=== PATIENT | female | born 1965 | race Caucasian/White ===

== ENCOUNTER 2016-12-06 19:01 | Emergency (ER) | payer BC ==
[~2016-12-06] VITALS: Ht 162.6 cm; Wt 109.0 kg
[~2016-12-06 19:01] MED LIST: BENA10TA48 PO; LANT3I SC; LEVO25TA53 PO; LEVO300T5 PO; METF-388 PO; NOVO3I SC; ONDA4TAB8 PO; SIMV10TA76 PO
[2016-12-06 19:47] VITALS: Ht 162.6 cm; Wt 109.0 kg
[2016-12-06] MEDS ORDERED: KETOROLAC 30 MG INJ IM STA (21:21)
--- NOTE | 2016-12-06 22:14 | RADRPT ---
PROCEDURE: Left knee x-ray CLINICAL INDICATION: Lateral knee pain. TECHNIQUE: AP, lateral and oblique views of the right knee were obtained. COMPARISON: None FINDINGS: There is normal mineralization. No acute fracture or dislocation is seen. There are no significant degenerative changes. There is no joint effusion. Inferior patellar enthesophyte. There is no significant soft tissue swelling. IMPRESSION: Normal x-ray of the right knee. RPTAT: [facility] Physician Christina Date Time Electronically viewed and signed by Physician Christina on 12/06/2016 22:14 RS/
[2016-12-06] MEDS ORDERED: IBUP400T22 PO (23:25)
[2016-12-06 23:31] VITALS: BP 143/70; PULSE 67; RESP 16
--- NOTE | 2016-12-06 23:35 | ERD ---
ER Documentation Chief Complaint Date/Time DATE: 12/06/16 TIME: 23:27 Chief Complaint RIGHT KNEE SINCE 12/03/16. SWELLING AND PAIN NOW HPI Patient is a 51-year-old female with a past medical history of diabetes, hypertension, hypothyroidism, dyslipidemia who presents to the emergency department with right knee pain 3 days. Patient denies any trauma or falls. Patient states that she woke up in the morning and she started having severe pain. Patient states that when she walks "she hears a cracking sound" Patient states her current pain level is a 10 out of 10. Pain is worse with movement. Patient is been taking [place] for her pain which does not alleviate it. Patient reports icing affected extremity. Patient denies any numbness or tingling down her leg. Patient is able to ambulate on affected extremity without any difficulty. Patient denies any previous injury to affected extremity. Patient denied any recent surgery, prolonged sitting, travel, estrogen use. Patient denies any fever or chills. Patient denies any chest pain, shortness of breath or loss of consciousness. ROS All systems reviewed and are negative except as per history of present illness. Medications Home Meds Active Scripts Ibuprofen* (Motrin*) 400 Mg Tab, 400 MG PO Q6, #20 TAB Prov:ANA GATES PA-C 12/06/16 Ondansetron Hcl* (Zofran*) 4 Mg Tablet, 4 MG PO Q8 for VOMITTING, #20 TAB Prov:SYLVIA SOSA MD 08/20/16 Metformin Hcl* (Metformin Hcl*) 1,000 Mg Tablet, 1000 MG PO WITH BREAKFAST, #30 TAB 1 Refill Prov:HARLEY MARIA 07/08/16 Reported Medications Levothyroxine Sodium* (Levothyroxine Sodium*) 25 Mcg Tablet, 25 MCG PO BEFORE BREAKFAST, #30 TAB 09/22/16 Levothyroxine Sodium* (Levothyroxine Sodium*) 300 Mcg Tablet, 300 MCG PO BEFORE BREAKFAST, #30 TAB 09/22/16 Insulin Glargine* (Lantus*) 100 Unit/Ml Soln, 20 UNIT SC QHS, #1 VIAL 07/27/16 Insulin Aspart* (Novolog Insulin Pen*) 100 Unit/Ml Soln, 5 UNIT SC AC MEALS , EA 07/27/16 Benazepril Hcl* (Benazepril Hcl*) 10 Mg Tablet, 10 MG PO DAILY, #30 04/24/16 Simvastatin* (Zocor*) 10 Mg Tablet, 10 MG PO QHS, #30 04/24/16 Allergies Allergies: Coded Allergies: morphine (Verified Allergy, Mild, 09/22/16) PMhx/Soc History of Surgery: Yes ( DM, HYPOTHYROIDISM, DLD, HTN, ERCP WITH STENT PLACEMENT, CHOLECYSTECTOMY, ) Anesthesia Reaction: No Hx Neurological Disorder: No Hx Respiratory Disorders: No Hx Cardiac Disorders: Yes (HTN, hyperlipidemia) Hx Psychiatric Problems: No Hx Miscellaneous Medical Probl: Yes ( DM, HYPOTHYROIDISM, DLD, HTN, ERCP WITH STENT PLACEMENT, CHOLECYSTECTOMY, ) Hx Alcohol Use: No Hx Substance Use: No Hx Tobacco Use: Yes Smoking Status: Current every day smoker Physical Exam Vitals Vital Signs Date Time Temp Pulse Resp B/P Pulse Ox O2 Delivery O2 Flow Rate FiO2 12/06/16 23:31 67 16 143/70 98 Room Air 12/06/16 19:47 98.9 72 20 176/79 98 Physical Exam GENERAL: Well-developed, well-nourished female. Appears in no acute distress. HEAD: Normocephalic, atraumatic. EYES: Pupils are equally reactive bilaterally. EOMs grossly intact. No conjunctival erythema. ENT: Moist mucous membranes. No uvula deviation. No kissing tonsils. NECK: Supple. No lymphadenopathy or thyromegaly. No meningismus. LUNG: Clear to auscultation bilaterally. No rhonchi, wheezing, rales or coarse breath sounds. HEART: Regular rate and rhythm. No murmurs, rubs or gallops. BACK: No midline tenderness. EXTREMITIES: Equal pulses bilaterally. No peripheral clubbing, cyanosis or edema. No unilateral leg swelling. NEUROLOGIC: Alert and oriented. Moving all four extremities without any difficulty. Normal speech. Steady gait. SKIN: Normal color. Warm and dry. No rashes or lesions. RIGHT KNEE: No deformity, erythema, ecchymosis. No swelling noted. Skin intact. Decreased range of motion secondary to pain. Tender to palpation over anterior and lateral knee. No popliteal tenderness elicited. No valgus/varus instability. Sensation intact to light touch. Neurovascularly intact. (Able to plantarflex, dorsiflex, ivette foot, invert foot, raise big toe.) 2+ DP and DT pulses. Patient is able to ambulate greater than 4 steps without difficulty. Results 24 hrs Current Medications Medications (Trade) Dose Ordered Sig/Josephine Route PRN Reason Start Time Stop Time Status Last Admin Dose Admin Ketorolac Tromethamine (Toradol) 30 mg ONCE STAT IM 12/06/16 21:21 12/06/16 21:23 DC 12/06/16 22:44 Procedures/MDM ED COURSE: The patient was stable throughout ED course. I kept the patient and/or family informed of laboratory and diagnostic imaging results throughout the ED course. DIAGNOSTIC IMAGING: Read by radiologist. DIAGNOSTIC IMAGING REPORT Patient: LEONEL JANSEN : 1965 Age: 51 Sex: F MR #: [id number] DOS: 12/06/162120 Ordering MD: ANA GATES PA-C Location: [facility] Room/Bed: PROCEDURE: Left knee x-ray CLINICAL INDICATION: Lateral knee pain. TECHNIQUE: AP, lateral and oblique views of the right knee were obtained. COMPARISON: None FINDINGS: There is normal mineralization. No acute fracture or dislocation is seen. There are no significant degenerative changes. There is no joint effusion. Inferior patellar enthesophyte. There is no significant soft tissue swelling. IMPRESSION: Normal x-ray of the right knee. RPTAT: [facility] Physician Christina Date Time Electronically viewed and signed by Physician Christina on 12/06/2016 22:14 RS/ CC: ANA GATES PA-C MEDICATIONS GIVEN: Toradol IM Patient tolerated medication well with no adverse reactions. Patient reported improvement in pain. MEDICAL DECISION MAKING: This is a 51-year-old female who presents with right knee pain 3 days.. Vital signs were reviewed. Patient was afebrile. Right knee x-rays was unremarkable. Given these findings, the patients presentation is most consistent with knee sprain. I have a much lower clinical concern for patella fracture, tibial plateau fracture, septic joint, gout, popliteal cyst, prepatellar bursitis, patellar tendinitis, osteomyelitis, DVT or compartment syndrome. At this time, unable to rule out any meniscus and knee ligament injuries. PRESCRIPTIONS: Ibuprofen DISCHARGE: At this time, patient is stable for discharge and outpatient management. RICE therapy and ROM exercises were advised to avoid stiffness. I have instructed the patient to follow-up with his/her primary care physician in 1-2 days. I have discussed with the patient the possibility of needing to see an energy conservation specialist for further workup and imaging if the pain persists. I have instructed the patient to promptly return to the ER for any new or worsening symptoms including increased pain, swelling, redness, warmth or fever. The patient and/or family expressed understanding of and agreement with this plan. All questions were answered. Home care instructions were provided. Patients blood pressure was elevated (>120/80) but appears stable without evidence of hypertensive emergency, hypertensive urgency or end-organ failure. I had discussion with the patient about the risks of hypertension. I have advised the patient to follow up with his/her primary care physician for outpatient monitoring and treatment for hypertension in 2-3 days. I have instructed the patient to return to the ER for any new or worsening symptoms including chest pain, shortness of breath, headache, blurred vision, confusion, nausea, vomiting or LOC. Departure Diagnosis: Primary Impression: Knee sprain Encounter type: initial encounter Involved ligament of knee: unspecified ligament Laterality: right Qualified Code: S83.91XA - Sprain of right knee, unspecified ligament, initial encounter Condition: Stable Patient Instructions: Knee Sprain Additional Instructions: Call your primary care doctor TOMORROW for an appointment during the next 1-2 days.See the doctor sooner or return here if your condition worsens before your appointment time. Unable to rule out a tendon or ligament injuries at this time. Patient advised to see an energy conservation specialist if her symptoms persist. Referral information provided. ANA GATES PA-C Dec 06, 2016 23:34 ANA GATES PA-C Dec 06, 2016 23:34
== END 2016-12-06 23:33 | disposition home or self-care (01) ==
LOC: FTE 19:01
DX: S83.91XA Sprain of unspecified site of right knee, initial encounter (principal); I10 Essential (primary) hypertension; E11.9 Type 2 diabetes mellitus without complications; E03.9 Hypothyroidism, unspecified; F17.210 Nicotine dependence, cigarettes, uncomplicated; X58.XXXA Exposure to other specified factors, initial encounter; Y92.9 Unspecified place or not applicable; Z98.61 Coronary angioplasty status; Z79.84 Long term (current) use of oral hypoglycemic drugs; Z79.4 Long term (current) use of insulin
CPT/HCPCS: 73562; 96372; J1885; Z7502

== ENCOUNTER 2017-06-05 11:09 | Observation (INO) | payer BC ==
[~2017-06-05] VITALS: Ht 162.6 cm; Wt 115.4 kg
[~2017-06-05 11:09] MED LIST changes: +IBUP400T22 PO; -METF-388 PO; +METF1000 PO; +SIMV10TA PO; -SIMV10TA76 PO
[2017-06-05] MEDS ORDERED: ONDANSETRON 4 MG INJ IV STA (11:37)
[2017-06-05] MEDS ORDERED: SOD CHLORIDE 0.9% 1,000 ML IV STA (11:37)
[2017-06-05] MEDS ORDERED: HYDROmorphONE 1 MG/ML SYG IV STA (11:37)
[2017-06-05] MEDS ORDERED: NITROGLYCERIN 2% 1 GM OINT PKT TD STA (11:39)
[2017-06-05] MEDS ORDERED: ASPIRIN 325 MG TAB PO STA (11:39)
[2017-06-05] MEDS ORDERED: LORAZEPAM 2 MG INJ IV ONE (12:00)
[2017-06-05] MEDS: NITROGLYCERIN (SL) 0.4 MG TAB SL PRN (12:11)
[2017-06-05 12:25] LABS: ADD SCAN DIFF NO
[2017-06-05 12:28] LABS: BASOPHIL # 0.1 10^3/ul (0.0-0.1); BASOPHILS % 0.7 % (0.0-2.0); EOSINOPHILS # 0.2 10^3/ul (0.0-0.5); HEMATOCRIT 44.3 % (37.0-47.0); LYMPHOCYTES # 2.9 10^3/ul (0.8-2.9); LYMPHOCYTES % 38.5 % (15.0-51.0); MEAN CORPUSCULAR HEMOGLOBIN 32.1 pg (29.0-33.0); MEAN CORPUSCULAR HGB CONC 33.9 g/dl (32.0-37.0); MEAN CORPUSCULAR VOLUME 94.7 fl (82.0-101.0); MEAN PLATELET VOLUME 11.7 fl (7.4-10.4); MONOCYTE # 0.4 10^3/ul (0.3-0.9); MONOCYTES % 5.2 % (0.0-11.0); NEUTROPHILS % 53.2 % (39.0-77.0); PLATELET COUNT 220 10^3/UL (140-415); RED BLOOD COUNT 4.68 10^6/ul (4.20-5.40); RED CELL DISTRIBUTION WIDTH 13.2 % (11.5-14.5); WHITE BLOOD COUNT 7.5 10^3/ul (4.8-10.8)
--- NOTE | 2017-06-05 12:48 | ERA ---
ER Documentation Chief Complaint Date/Time DATE: 06/05/17 TIME: 12:40 Chief Complaint CP ANXIETY X 3 DAYS, INTERMITTENT HPI This is a 51-year-old female who states she is having substernal chest pressure or shortness of breath off-and-on for the past 3-1/2 days. She says the pain was initially short but is becoming longer. She says she gets a substernal chest pressure and shortness of breath and starts to cry but says she is not anxious or having any panic attack or sense of impending doom. She says she does not know why she is crying because she is not stressed out. She says both of her kids out of the house is just her and she has time to relax. She says that the pain was lasting all night long last night off-and-on was hard to sleep. She says the pain is not positional. She says she is also getting a little sweaty. She says her last menstrual cycle was 4 years ago. I asked her she is crying because she is worried that something bad will happen or she might and she tells me no not really. Patient has diabetes, high cholesterol, hypertension. The patient states she was admitted last year for the exact same presentation however after reviewing old records she is admitted for biliary/liver issues ROS All systems reviewed and are negative except as per history of present illness. Medications Home Meds Reported Medications Simvastatin* (Zocor*) 10 Mg Tablet, 10 MG PO QHS, #30 TAB 06/05/17 Lansoprazole* (Lansoprazole*) 15 Mg Capsule.dr, 15 MG PO TID, CAP 06/05/17 Metformin Hcl* (Metformin Hcl*) 500 Mg Tablet, 500 MG PO WITH BREAKFAST DINNE, # 60 TAB 06/05/17 Insulin Glargine* (Lantus*) 100 Unit/Ml Soln, 26 UNIT SC QHS, #1 VIAL 06/05/17 Insulin Glulisine (Apidra Solostar) 100 Unit/1 Ml Insuln.pen, 8 UNIT SQ AC MEALS , #1 TUB 06/05/17 Levothyroxine Sodium* (Levothyroxine Sodium*) 300 Mcg Tablet, 300 MCG PO BEFORE BREAKFAST, #30 TAB 06/05/17 Discontinued Reported Medications Levothyroxine Sodium* (Levothyroxine Sodium*) 25 Mcg Tablet, 25 MCG PO BEFORE BREAKFAST, #30 TAB 09/22/16 Levothyroxine Sodium* (Levothyroxine Sodium*) 300 Mcg Tablet, 300 MCG PO BEFORE BREAKFAST, #30 TAB 09/22/16 Insulin Glargine* (Lantus*) 100 Unit/Ml Soln, 20 UNIT SC QHS, #1 VIAL 07/27/16 Insulin Aspart* (Novolog Insulin Pen*) 100 Unit/Ml Soln, 5 UNIT SC AC MEALS , EA 07/27/16 Benazepril Hcl* (Benazepril Hcl*) 10 Mg Tablet, 10 MG PO DAILY, #30 04/24/16 Simvastatin* (Zocor*) 10 Mg Tablet, 10 MG PO QHS, #30 04/24/16 Discontinued Scripts Ibuprofen* (Motrin*) 400 Mg Tab, 400 MG PO Q6, #20 TAB Prov:ANA GATES PA-C 12/06/16 Ondansetron Hcl* (Zofran*) 4 Mg Tablet, 4 MG PO Q8 for VOMITTING, #20 TAB Prov:SYLVIA SOSA MD 08/20/16 Metformin Hcl* (Metformin Hcl*) 1,000 Mg Tablet, 1000 MG PO WITH BREAKFAST, #30 TAB 1 Refill Prov:HARLEY MARIA 07/08/16 Allergies Allergies: Coded Allergies: morphine (Verified Allergy, Mild, 06/05/17) PMhx/Soc History of Surgery: Yes ( ERCP WITH STENT PLACEMENT, CHOLECYSTECTOMY, ) Anesthesia Reaction: No Hx Neurological Disorder: No Hx Respiratory Disorders: No Hx Cardiac Disorders: Yes (HTN, hyperlipidemia) Hx Psychiatric Problems: No Hx Miscellaneous Medical Probl: Yes (DM , ARTHRITIS ) Hx Alcohol Use: No Hx Substance Use: No Hx Tobacco Use: No Smoking Status: Never smoker FmHx Family History: No coronary disease Physical Exam Vitals Vital Signs Date Time Temp Pulse Resp B/P Pulse Ox O2 Delivery O2 Flow Rate FiO2 06/05/17 14:30 68 18 122/85 99 Nasal Cannula 2.0 06/05/17 13:00 78 18 97/80 98 Nasal Cannula 2.0 06/05/17 12:10 80 18 150/80 98 Room Air 06/05/17 12:00 Nasal Cannula 2 06/05/17 11:14 98.1 84 18 165/78 99 Physical Exam Const: Well-developed, well-nourished Head: Atraumatic, normocephalic Eyes: Normal Conjunctiva, PERRLA, EOMI, normal sclera, no nystagmus ENT: Normal External Ears, Nose and Mouth, moist mucus membranes. Neck: Full range of motion. No meningismus, no lymphadenopathy. Resp: Clear to auscultation bilaterally, no wheezing, rhonchi, rales Cardio: Regular rate and rhythm, no murmurs, S1 S2 present Abd: Soft, non tender x 4, non distended. Normal bowel sounds, no guarding or rebound, no pulsitile abdominal masses or bruits Skin: No petechiae or rashes, no ecchymosis , no maculopapular rash Back: No midline or flank tenderness Ext: No cyanosis, or edema, FROM x 4, normal inspection, neurovascularly intact x 4 Neur: Awake and alert, STR 5/5 x 4, sensation intact x 4, no focal findings, cerebellum intact Psych: Normal Mood and Affect Result Diagram: 06/05/17 1200 06/05/17 1200 Results 24 hrs Laboratory Tests Test 06/05/17 12:00 White Blood Count 7.510^3/ul Red Blood Count 4.6810^6/ul Hemoglobin 15.0g/dl Hematocrit 44.3% Mean Corpuscular Volume 94.7fl Mean Corpuscular Hemoglobin 32.1pg Mean Corpuscular Hemoglobin Concent 33.9g/dl Red Cell Distribution Width 13.2% Platelet Count 70913^3/UL Mean Platelet Volume 11.7fl Neutrophils % 53.2% Lymphocytes % 38.5% Monocytes % 5.2% Eosinophils % 2.0% Basophils % 0.7% Nucleated Red Blood Cells % 0.0/100WBC Neutrophils # 4.010^3/ul Lymphocytes # 2.910^3/ul Monocytes # 0.410^3/ul Eosinophils # 0.210^3/ul Basophils # 0.110^3/ul Nucleated Red Blood Cells # 0.010^3/ul Sodium Level 135mmol/L Potassium Level 4.3mmol/L Chloride Level 105mmol/L Carbon Dioxide Level 21mmol/L Anion Gap 13 Blood Urea Nitrogen 14mg/dl Creatinine 0.90mg/dl Glucose Level 219mg/dl Calcium Level 9.6mg/dl Total Bilirubin 0.3mg/dl Direct Bilirubin 0.00mg/dl Indirect Bilirubin 0.3mg/dl Aspartate Amino Transf (AST/SGOT) 27IU/L Alanine Aminotransferase (ALT/SGPT) 22IU/L Alkaline Phosphatase 55IU/L Troponin I < 0.012ng/ml Total Protein 7.9g/dl Albumin 4.8g/dl Globulin 3.10g/dl Albumin/Globulin Ratio 1.54 Current Medications Medications (Trade) Dose Ordered Sig/Josephine Route PRN Reason Start Time Stop Time Status Last Admin Dose Admin Sodium Chloride (NS) 1,000 ml @ 1,000 mls/hr Q1H STAT IV 06/05/17 11:37 06/05/17 12:36 Cancel Hydromorphone HCl (Dilaudid) 1 mg ONCE STAT IV 06/05/17 11:37 06/05/17 11:39 DC 06/05/17 12:05 Ondansetron HCl (Zofran Inj) 4 mg ONCE STAT IV 06/05/17 11:37 06/05/17 11:39 DC 06/05/17 12:05 Lorazepam (Ativan) 1 mg ONCE ONCE IV 06/05/17 12:00 06/05/17 12:01 DC 06/05/17 12:05 Aspirin (Aspirin) 325 mg ONCE STAT PO 06/05/17 11:39 06/05/17 11:41 DC 06/05/17 12:05 Nitroglycerin (Nitroglycerin 2% Oint) 1 inch ONCE STAT TD 06/05/17 11:39 06/05/17 11:41 DC 06/05/17 12:05 Nitroglycerin (Nitroglycerin (Sl Tab) 0.4 Mg) 1 tab Q5M UP TO 3 DOSES PRN SL CHEST PAIN 06/05/17 12:00 06/05/17 12:11 Procedures/MDM EKG: Rate/Rhythm: Normal Sinus Rhythm,NL intervals QRS, ST, QT: NORMAL CO, QRS, QT] Impression: NORMAL EKG Patient's chest pain differential could be anxiety, angina, coronary artery disease, my initial impression was an anxiety component however the crying is not a typical presentation for anginal chest pain more anxiety picture but she states she is not anxious and last night the pain was lasting most of the night. She said she was not crying all night long. She said the onset she would have pain for about an hour and will cry for a few minutes then resolved. She said last night the pain was more consistent worse. Due to her risk factors it is hard to say it is not coronary in origin, it is possible but less likely. Likely air on the side of caution and admit for rule out and or stress test PROCEDURE: XR Chest. CLINICAL INDICATION: chest pain TECHNIQUE: Single frontal view of the chest was obtained COMPARISON: 05/21/2015 FINDINGS: The heart and mediastinum are within normal limits. The lungs are clear. There is no pleural effusion or pneumothorax. RPTAT: AA IMPRESSION: No acute disease. .Boston Curtis MD, MD Date Time Electronically viewed and signed by .Boston Curtis MD, on 06/05/2017 13: 32 .S/ CC: MANDI EARLY DO During the ER stay the patient had another episode where she had chest pain. She described as a pressure and became short of breath and a bit sweaty. She was not having any crying spells or anxiety. The pain was relieved with nitroglycerin. Patient's symptoms are concerning for cardiac cause will require inpatient workup and continuous monitoring. Further w/u for ischemia, arrhythmia, PE or dissection will be deferred to the inpatient team. Accepting Care Team: Current data and ongoing care discussed. Time: Time of admission Primary Provider: [XOXOXO] Consulting: [XOXOXO] Outstanding Data: none Departure Diagnosis: Primary Impression: Chest pain Qualified Code: R07.9 - Chest pain, unspecified type Condition: Stable MANDI EARLY DO Jun 05, 2017 12:47
[2017-06-05 13:00] LABS: ALANINE AMINOTRANSFERASE 22 IU/L (13-69); ALBUMIN 4.8 g/dl (3.3-4.9); ALBUMIN/GLOBULIN RATIO 1.54; ALKALINE PHOSPHATASE 55 IU/L (42-121); ANION GAP 13 (8-16); ASPARTATE AMINO TRANSFERASE 27 IU/L (15-46); BILIRUBIN,INDIRECT 0.3 mg/dl (0-1.1); BILIRUBIN,TOTAL 0.3 mg/dl (0.2-1.3); BLOOD UREA NITROGEN 14 mg/dl (7-20); CALCIUM 9.6 mg/dl (8.4-10.2); CARBON DIOXIDE 21 mmol/L (21-31); CHLORIDE 105 mmol/L (97-110); GLUCOSE 219 mg/dl (70-220); POTASSIUM 4.3 mmol/L (3.5-5.1); SODIUM 135 mmol/L (135-144); TOTAL PROTEIN 7.9 g/dl (6.1-8.1)
[2017-06-05 13:10] LABS: TROPONIN-I < 0.012 ng/ml (0.00-0.12)
[2017-06-05] MEDS ORDERED: LEVO300T5 PO (13:12)
[2017-06-05] MEDS ORDERED: INSU100I17 SQ (13:13)
[2017-06-05] MEDS ORDERED: LANT3I SC (13:14)
[2017-06-05] MEDS ORDERED: METF500T4 PO (13:14)
[2017-06-05] MEDS ORDERED: LANS15CA5 PO (13:15)
[2017-06-05] MEDS ORDERED: SIMV10TA PO (13:17)
--- NOTE | 2017-06-05 13:32 | RADRPT ---
PROCEDURE: XR Chest. CLINICAL INDICATION: chest pain TECHNIQUE: Single frontal view of the chest was obtained COMPARISON: 05/21/2015 FINDINGS: The heart and mediastinum are within normal limits. The lungs are clear. There is no pleural effusion or pneumothorax. RPTAT: AA IMPRESSION: No acute disease. .Boston Curtis MD, MD Date Time Electronically viewed and signed by .Boston Curtis MD, on 06/05/2017 13:32 .S/
[2017-06-05] MEDS ORDERED: ONDANSETRON 4 MG INJ IV PRN ×3 (15:00→20:00)
[2017-06-05] MEDS ORDERED: ACETAMINOPHEN 325 MG TAB PO PRN ×2 (15:00→20:00)
[2017-06-05 15:30] VITALS: TEMP 98.1
[2017-06-05 16:15] VITALS: BP 138/86; PULSE 74; RESP 18; Ht 162.6 cm; Wt 115.4 kg
[2017-06-05] MEDS: HYDROmorphONE 1 MG/ML SYG IV PRN ×2 (18:04→22:40)
[2017-06-05] MEDS ORDERED: morphine 2 MG INJ IV PRN (20:00)
[2017-06-05] MEDS ORDERED: NACL 0.9% 3 ML SYG IV SCH (20:00)
[2017-06-05] MEDS ORDERED: NITROGLYCERIN (SL) 0.4 MG TAB SL PRN (20:00)
[2017-06-05 20:14] VITALS: PULSE 67
[2017-06-05 20:16] VITALS: BP 115/60; RESP 20
--- NOTE | 2017-06-05 20:41 | HP ---
Date/Time of Note Date/Time of Note DATE: 06/05/17 TIME: 20:35 Assessment/Plan VTE Prophylaxis VTE Prophylaxis Intervention: LMWH Lines/Catheters IV [facility]from [facility] Urinary Cath still in place: No Assessment/Plan Chief Complaint/Hosp Course 1. Atypical chest pain likely secondary to anxiety and/or muscle skeletal pain Rule out ACS with troponins and echo Cardiac meds 2. Morbid obesity Lifestyle changes advised 3. Diabetes Continue home regimen and sliding scale, check an A1c 4. History of hypertension Not on any pharmaceuticals and BP is stable The current surgical 5. Hypothyroidism Continue home meds Prophylaxis: Lovenox Problems: HPI/ROS Admit Date/Time Admit Date/Time Jun 05, 2017 at 14:54 Hx of Present Illness Patient is a 51-year-old female with history of choledocholithiasis, anxiety, obesity, diabetes, hypertension, hypothyroidism. Patient presents with chest pain for the past 4-5 days, she describes it as a pressure sensation in her chest. Patient does report increased increase in stress has been feeling anxious as of late. Patient has no other complaints she does report that she is pain in her left shoulder which is exacerbated by movement of that shoulder, she stated that she has tried various [id number] pain medications with no relief. Patient denies any nausea vomiting fevers or chills. ROS Constitutional: improved, no complaints Eyes: no complaints ENT: no complaints Respiratory: no complaints Cardiovascular: chest pain Gastrointestinal: no complaints Genitourinary: no complaints Musculoskeletal: bone/joint pain (Left shoulder) Skin: no complaints Neurologic: no complaints Endocrine: no complaints Lymphatic: no complaints Psychological: nl mood/affect, no complaints Immunologic: no complaints PMH/Family/Social Past Medical History 1. History of choledocholithiasis 2. Morbid obesity 3. Anxiety 4. Diabetes 5. Hypertension 6. Hypothyroidism Family History Significant Family History: no pertinent family hx Social History Alcohol Use: none Smoking Status: Former smoker Drug Use: none Exam/Review of Systems Vital Signs Vitals Vital Signs Date Time Temp Pulse Resp B/P Pulse Ox O2 Delivery O2 Flow Rate FiO2 06/05/17 20:16 97.9 69 20 115/60 92 06/05/17 16:15 Room Air 06/05/17 15:30 2.0 Exam Constitutional: alert, oriented Psych: anxiety Respiratory: clear to auscultation Cardiovascular: regular rate and rhythm Gastrointestinal: soft, No distended Musculoskeletal: nl extremities to inspection Labs Result Diagram: 06/05/17 1200 06/05/17 1200 Medications Medications Current Medications Hydromorphone HCl (Dilaudid) 1 mg Q4H PRN IV PAIN Last administered on 18:04; Admin Dose 1 MG; Start 06/05/17 at 18:00 Ondansetron HCl (Zofran Inj) 4 mg Q6H PRN IV NAUSEA AND/OR VOMITING Last administered on 06/05/17 18:04; Admin Dose 4 MG; Start 06/05/17 at 18:00 Ondansetron HCl (Zofran Inj) 4 mg Q6H PRN IV NAUSEA AND/OR VOMITING; Start 06/05 at 20:00; Status UNV Acetaminophen (Tylenol Tab) 650 mg Q6H PRN PO PAIN LEVEL 1-3 OR FEVER; Start at 20:00; Status UNV Acetaminophen/ Hydrocodone Bitart ([place] (5/325)) 1 tab Q6H PRN PO MODERATE PAIN LEVEL 4-6; Start 06/05/17 at 20:00; Status UNV Morphine Sulfate (morphine) 2 mg Q4H PRN IV SEVERE PAIN LEVEL 7-10; Start at 20:00; Status UNV Enoxaparin Sodium (Lovenox) 40 mg DAILY SC ; Start 06/06/17 at 09:00; Status UNV Aspirin (Aspirin) 81 mg DAILY PO ; Start 06/07/17 at 09:00; Status UNV Carvedilol (Coreg) 6.25 mg BID PO ; Start 06/05/17 at 21:00; Status UNV Nitroglycerin (Nitroglycerin (Sl Tab) 0.4 Mg) 1 tab Q5M PRN SL CHEST PAIN; Start 06/05/17 at 20:00; Status UNV Insulin Glargine (Lantus) 26 unit QHS SC ; Start 06/05/17 at 21:00; Status UNV Lansoprazole (Prevacid) 15 mg TID PO ; Start 06/05/17 at 21:00; Status UNV Miscellaneous Information 10 mg QHS PO ; Start 06/05/17 at 21:00; Status UNV Miscellaneous Information (* Miscellaneous Pharmacy Order) HYPOGLYCEMIA PROTOCOL w... ONCE ONCE XX ; Start 06/05/17 at 20:00; Stop 06/05/17 at 20:01; Status UNV Miscellaneous Information (* Miscellaneous Pharmacy Order) Discontinue Glyburide , Glipizide,... ONCE ONCE XX ; Start 06/05/17 at 20:00; Stop 06/05/17 at 20:01; Status UNV Miscellaneous Information (* Miscellaneous Pharmacy Order) Discontinue all previ... ONCE ONCE XX ; Start 06/05/17 at 20:00; Stop 06/05/17 at 20:01; Status UNV Diagnostic Test (Pha) (Accu-Chek) 1 XX ; Start 06/06/17 at 02:00; Status UNV FRED YEE Jun 05, 2017 20:41
[2017-06-05] MEDS ORDERED: INSULIN GLARGINE [LANtus] 3 ML PEN SC SCH (21:00)
[2017-06-05] MEDS ORDERED: LANSOPRAZOLE 15 MG CAP PO SCH (21:00)
[2017-06-05] MEDS: INSULIN ASPART [NOVOLOG] 3 ML PEN SC SCH (21:00)
[2017-06-05] MEDS ORDERED: NON-FORMULARY/PATIENT OWN MED (Simvastatin* (Zocor*) 10 MG) PO SCH (21:00)
[2017-06-05] MEDS ORDERED: GLUCOSE GEL 15 GRAM TUBE PO PRN ×2 (21:30)
[2017-06-05] MEDS ORDERED: GLUCOSE GEL 15 GRAM TUBE BUCCAL PRN (21:30)
[2017-06-05] MEDS ORDERED: DEXTROSE 50% 50 ML SYRINGE IV PRN ×2 (21:30)
[2017-06-05] MEDS ORDERED: GLUCAGON 1 MG INJ IM PRN (21:30)
[2017-06-06] VITALS (11 sets, daily range): BP systolic 107–135; BP diastolic 59–78; PULSE 53–63; RESP 17–19
[2017-06-06] MEDS ORDERED: ACCU-CHEK XX SCH (02:00)
[2017-06-06] MEDS: NITROGLYCERIN (SL) 0.4 MG TAB SL PRN ×4 (02:38→07:36)
[2017-06-06] MEDS: HYDROCODONE/APAP (5/325) TAB PO PRN ×2 (02:53→07:24)
[2017-06-06] MEDS ORDERED: PANTOPRAZOLE (EC) 40 MG TAB PO SCH (06:00)
[2017-06-06] MEDS ORDERED: LEVOTHYROXINE 150 MCG TAB PO SCH (06:00)
[2017-06-06] MEDS ORDERED: LEVOTHYROXINE SODIUM 300 MCG PO SCH (07:00)
[2017-06-06 07:30] LABS: ADD SCAN DIFF NO
[2017-06-06] MEDS ORDERED: INSULIN GLULISINE 8 UNIT XX SCH (07:30)
[2017-06-06 07:33] LABS: BASOPHIL # 0.1 10^3/ul (0.0-0.1); BASOPHILS % 1.1 % (0.0-2.0); EOSINOPHILS # 0.1 10^3/ul (0.0-0.5); EOSINOPHILS % 2.2 % (0.0-7.0); HEMATOCRIT 41.9 % (37.0-47.0); HEMOGLOBIN 13.8 g/dl (12.0-16.0); LYMPHOCYTES # 2.9 10^3/ul (0.8-2.9); LYMPHOCYTES % 46.4 % (15.0-51.0); MEAN CORPUSCULAR HEMOGLOBIN 31.7 pg (29.0-33.0); MEAN CORPUSCULAR HGB CONC 32.9 g/dl (32.0-37.0); MEAN CORPUSCULAR VOLUME 96.3 fl (82.0-101.0); MEAN PLATELET VOLUME 10.7 fl (7.4-10.4); MONOCYTE # 0.4 10^3/ul (0.3-0.9); MONOCYTES % 6.6 % (0.0-11.0); NEUTROPHIL # 2.8 10^3/ul (1.6-7.5); NEUTROPHILS % 43.5 % (39.0-77.0); PLATELET COUNT 208 10^3/UL (140-415); RED BLOOD COUNT 4.35 10^6/ul (4.20-5.40); RED CELL DISTRIBUTION WIDTH 13.3 % (11.5-14.5); WHITE BLOOD COUNT 6.3 10^3/ul (4.8-10.8)
[2017-06-06 07:53] LABS: ALBUMIN 4.4 g/dl (3.3-4.9); ALBUMIN/GLOBULIN RATIO 1.76; BILIRUBIN,INDIRECT 0.4 mg/dl (0-1.1); BILIRUBIN,TOTAL 0.4 mg/dl (0.2-1.3); CALCIUM 9.1 mg/dl (8.4-10.2); CREATININE 0.88 mg/dl (0.44-1.00); MAGNESIUM 1.8 mg/dl (1.7-2.5); POTASSIUM 4.1 mmol/L (3.5-5.1); TOTAL PROTEIN 6.9 g/dl (6.1-8.1)
[2017-06-06] MEDS: INSULIN ASPART [NOVOLOG] 3 ML PEN SC SCH ×5 (08:00→17:22)
[2017-06-06] MEDS: metFORMIN 500 MG TAB PO SCH ×2 (08:08→17:22)
[2017-06-06] MEDS ORDERED: ENOXAPARIN 40 MG/0.4 ML SYG SC SCH (09:00)
[2017-06-06] MEDS: HYDROmorphONE 1 MG/ML SYG IV PRN (10:08)
--- NOTE | 2017-06-06 11:45 | RADRPT ---
Echocardiogram Report Patient Name: LEONEL JANSEN Gender: Female Date: 1965 Study Date: 06-Jun-2017 Vibrating Screen Operator: Ricardo Moss [facility] Location: 5566 Ref. Physician: FRED YEE Quality: Good Procedures: Transthoracic echocardiogram with complete 2D, M-Mode, and doppler examination. Indications: Chest Pain. 2D/M Mode Doppler Measurement Value Normal Ranges Measurement Value Normal Ranges LVIDd 2D 4.6 3.5 - 5.6 cm AV Peak Kraig 1.4 m/sec LVIDs 2D 1.6 2.1 - 4.1 cm AV Peak PG 7.6 mmHg LVPWd 2D 1.1 0.6 - 1.1 cm LVOT Peak Kraig 1.1 m/sec IVSd 2D 1.1 0.6 - 1.1 cm LVOT Peak PG 4.9 mmHg AoR Diam 2D 2.6 2.0 - 3.7 cm MV E Peak Kraig 0.7 m/sec EDV 2D 97.3 cm3 MV A Peak Kraig 0.8 m/sec ESV 2D 3.9 cm3 MV E/A 0.8 LA Dimen 2D 4.0 2.3 - 4.0 cm MV Decel Time 176 msec MV Decel [place] 4 MV E/A 0.8 TR Peak Kraig 2.1 m/sec TR Peak PG 17.0 mmHg RVSP 32.0 mmHg Findings Left Ventricle: Normal left ventricular systolic function. Normal left ventricular cavity size. Mild concentric left ventricular hypertrophy. Ejection fraction is visually estimated at 60 %. Tissue Doppler/Mitral Doppler indices are consistent with impaired relaxation (Stage I diastolic dysfunction). Right Ventricle: Normal right ventricular size. Normal right ventricular systolic function. Left Atrium: There is mild enlargement of left atrium. Right Atrium: The right atrium is normal in size. Mitral Valve: Normal appearance of the mitral valve. Mild mitral valve regurgitation. Aortic Valve: Normal appearance of the aortic valve. No significant aortic stenosis or insufficiency. Tricuspid Valve: Normal appearance of the tricuspid valve. Estimated peak PA systolic pressure 32 mmHg. There is mild tricuspid regurgitation. Pulmonic Valve: Normal pulmonic valve appearance. Pericardium: Normal pericardium with no significant pericardial effusion. Aorta: Normal aortic root. IVC: Dilated IVC without respiratory collapse consistent with elevated right atrial pressure. Conclusions Normal left ventricular systolic function. Normal left ventricular cavity size. Mild concentric left ventricular hypertrophy. Ejection fraction is visually estimated at 60 %. Tissue Doppler/Mitral Doppler indices are consistent with impaired relaxation (Stage I diastolic dysfunction). Normal right ventricular size. Normal right ventricular systolic function. There is mild enlargement of left atrium. The right atrium is normal in size. Normal appearance of the mitral valve. Mild mitral valve regurgitation. Normal appearance of the tricuspid valve. Estimated peak PA systolic pressure 32 mmHg. There is mild tricuspid regurgitation. Normal appearance of the aortic valve. No significant aortic stenosis or insufficiency. Normal pericardium with no significant pericardial effusion. Electronically Signed By: Doe Gu 06-Jun-2017 11:44:25 -0700 Patient Name: LEONEL JANSEN Study Date: 06-Jun-[id number]
--- NOTE | 2017-06-06 12:26 | PN ---
Date/Time of Note Date/Time of Note DATE: 06/06/17 TIME: 12:25 Assessment/Plan VTE Prophylaxis VTE Prophylaxis Intervention: LMWH Lines/Catheters IV [facility]ter Type (from [facility]): Peripheral IV Urinary Cath still in place: No Assessment/Plan Chief Complaint/Hosp Course 1. Chest pain. Etiology unclear. Serial troponins negative. 2D echocardiogram showing preserved left ventricular ejection fraction. Cardiology to evaluate the patient. 2. Essential hypertension. Continue antihypertensives. 3. Type 2 diabetes mellitus. Continue sliding scale insulin along with Lantus insulin. Pending hemoglobin A1c. 4. Dyslipidemia. Fasting lipid panel showing high triglycerides and suboptimal LDL and HDL. Continue statins. 5. Hypothyroidism. Continue Synthroid. 6. Obesity. BMI of 43.7 kg/m. Weight reduction advised. 7. Cephalgia. Most probably a side effect of nitro. The patient's nitro patch has been discontinued. 8. Fluids, electrolytes, and nutrition. Low-cholesterol, carbohydrate controlled diet. 9. DVT prophylaxis. Subcutaneous Lovenox. 10. Gastrointestinal prophylaxis. Proton pump inhibitors. 11. Plan. Continue current management. Await cardiology evaluation. Case discussed with Dr. Nelson. Problems: Subjective 24 Hr Interval Summary Free Text/Dictation Complains of headache. Complains of left chest wall heaviness. Exam/Review of Systems Vital Signs Vitals Vital Signs Date Time Temp Pulse Resp B/P Pulse Ox O2 Delivery O2 Flow Rate FiO2 06/06/17 11:47 98.1 56 18 135/61 94 06/06/17 07:44 Room Air 06/05/17 15:30 2.0 Intake and Output 06/05/17 06/05/17 06/06/17 15:00 23:00 07:00 Intake Total 1800 ml Balance 1800 ml Exam General: Obese 51 year-old female lying in bed in no apparent distress. HEENT: Normocephalic, atraumatic. Eyes: Anicteric sclerae, conjunctivae clear. ENT: Nasal septum midline, oral mucosa moist. Neck supple, no JVD noticed. Respiratory: Bilaterally clear breath sounds. No use of accessory muscles of respiration. No adventitious breath sounds. Cardiovascular: S1, S2 heard. No murmurs or gallops. Abdomen: Soft, nontender, and nondistended. Bowel sounds positive in all 4 quadrants. Genitourinary: Deferred. Extremities: No cyanosis, no clubbing, no edema. Peripheral pulses palpable. Neurologic: Cranial nerves II through XII grossly intact. The patient is awake, alert, and oriented. Skin: Normal skin turgor. No skin rashes. Results Result Diagram: 06/06/1733 06/06/17 0633 Results 24 hrs Laboratory Tests Test 06/05/17 18:15 06/05/17 21:05 06/05/17 21:21 06/06/17 06:23 Bedside Glucose 92 173 Troponin I < 0.012 < 0.012 Test 06/06/17 06:33 06/06/17 08:07 06/06/17 11:24 White Blood Count 6.3 Red Blood Count 4.35 Hemoglobin 13.8 Hematocrit 41.9 Mean Corpuscular Volume 96.3 Mean Corpuscular Hemoglobin 31.7 Mean Corpuscular Hemoglobin Concent 32.9 Red Cell Distribution Width 13.3 Platelet Count 208 Mean Platelet Volume 10.7 H Neutrophils % 43.5 Lymphocytes % 46.4 Monocytes % 6.6 Eosinophils % 2.2 Basophils % 1.1 Nucleated Red Blood Cells % 0.0 Neutrophils # 2.8 Lymphocytes # 2.9 Monocytes # 0.4 Eosinophils # 0.1 Basophils # 0.1 Nucleated Red Blood Cells # 0.0 Sodium Level 139 Potassium Level 4.1 Chloride Level 102 Carbon Dioxide Level 25 Anion Gap 16 Blood Urea Nitrogen 20 Creatinine 0.88 Glucose Level 133 # Calcium Level 9.1 Phosphorus Level 4.0 Magnesium Level 1.8 Total Bilirubin 0.4 Direct Bilirubin 0.00 Indirect Bilirubin 0.4 Aspartate Amino Transf (AST/SGOT) 18 Alanine Aminotransferase (ALT/SGPT) 24 Alkaline Phosphatase 61 Total Protein 6.9 # Albumin 4.4 Globulin 2.50 Albumin/Globulin Ratio 1.76 Triglycerides Level 269 H Cholesterol Level 192 LDL Cholesterol, Calculated 106 HDL Cholesterol 32 L Cholesterol/HDL Ratio 6.0 Bedside Glucose 140 119 Medications Medications Current Medications Hydromorphone HCl (Dilaudid) 1 mg Q4H PRN IV PAIN Last administered on 10:08; Admin Dose 1 MG; Start 06/05/17 at 18:00 Ondansetron HCl (Zofran Inj) 4 mg Q6H PRN IV NAUSEA AND/OR VOMITING Last administered on 06/05/17 18:04; Admin Dose 4 MG; Start 06/05/17 at 18:00 Ondansetron HCl (Zofran Inj) 4 mg Q6H PRN IV NAUSEA AND/OR VOMITING; Start 06/05 at 20:00 Acetaminophen (Tylenol Tab) 650 mg Q6H PRN PO PAIN LEVEL 1-3 OR FEVER Last administered on 06/06/17 09:09; Admin Dose 650 MG; Start 06/05/17 at 20:00 Acetaminophen/ Hydrocodone Bitart ([place] (5/325)) 1 tab Q6H PRN PO MODERATE PAIN LEVEL 4-6 Last administered on 06/06/17 07:24; Admin Dose 1 TAB; Start 06/05/17 at 20:00 Morphine Sulfate (morphine) 2 mg Q4H PRN IV SEVERE PAIN LEVEL 7-10; Start at 20:00 Enoxaparin Sodium (Lovenox) 40 mg DAILY SC Last administered on 06/06/17 08:14 ; Admin Dose 40 MG; Start 06/06/17 at 09:00 Aspirin (Aspirin) 81 mg DAILY PO ; Start 06/07/17 at 09:00 Carvedilol (Coreg) 6.25 mg BID PO Last administered on 06/05/17 22:41; Admin Dose 6.25 MG; Start 06/05/17 at 21:00 Nitroglycerin (Nitroglycerin (Sl Tab) 0.4 Mg) 1 tab Q5M PRN SL CHEST PAIN; Start 06/05/17 at 20:00 Insulin Glargine (Lantus) 26 unit QHS SC Last administered on 06/05/17 22:43; Admin Dose 26 UNIT; Start 06/05/17 at 21:00 Diagnostic Test (Pha) (Accu-Chek) 1 ea 02 XX ; Start 06/06/17 at 02:00 Atorvastatin Calcium (Lipitor) 10 mg DAILY@21 PO ; Start 06/06/17 at 21:00 Levothyroxine Sodium (Synthroid) 300 mcg DAILY@06 PO Last administered on 05:50; Admin Dose 300 MCG; Start 06/06/17 at 06:00 Miscellaneous Information 1 ea NOTE XX ; Start 06/05/17 at 21:30 Glucose (Glutose) 15 gm Q15M PRN PO DECREASED GLUCOSE; Start 06/05/17 at 21:30 Glucose (Glutose) 22.5 gm Q15M PRN PO DECREASED GLUCOSE; Start 06/05/17 at 21:30 Dextrose (D50w Syringe) 25 ml Q15M PRN IV DECREASED GLUCOSE; Start 06/05/17 at 21:30 Dextrose (D50w Syringe) 50 ml Q15M PRN IV DECREASED GLUCOSE; Start 06/05/17 at 21:30 Glucagon (Glucagen) 1 mg Q15M PRN IM DECREASED GLUCOSE; Start 06/05/17 at 21:30 Glucose (Glutose) 15 gm Q15M PRN BUCCAL DECREASED GLUCOSE; Start 06/05/17 at 21: 30 Pantoprazole (Protonix Tab) 40 mg DAILY@06 PO Last administered on 06/06/17t 05 :50; Admin Dose 40 MG; Start 06/06/17 at 06:00 JAVON PAULA NP Jun 06, 2017 12:26
[2017-06-06] MEDS ORDERED: ACET/BUTAL/CAFF/CODEINE CAP PO ONE (12:30)
--- NOTE | 2017-06-06 12:48 | CONS ---
Date/Time of Note Date/Time of Note DATE: 06/06/17 TIME: 12:39 Assessment/Plan Assessment/Plan Additional Assessment/Plan Chest wall, shoulder pain Preserved ejection fraction Hypertension Headache -Patient's chest discomfort is reproducible with left arm movements and palpation of the chest wall and is nonexertional. Serial cardiac enzymes remain negative, ECG without any significant abnormalities. Symptoms appear more musculoskeletal in origin. No further inpatient cardiac workup needed at the current time for her current symptoms. Consultation Date/Type/Reason Admit Date/Time Jun 05, 2017 at 14:54 Type of Consultation: cv Reason for Consultation Chest pain Hx of Present Illness This is a 51-year-old female who presents with left shoulder, arm, chest pain and headache going on for the past 2-4 days. Patient feels a lump in her chest. She complains of pain with movement of her left arm and pushing on the chest wall. She denies any shortness of breath, dizziness. She is complaining of a headache which is worse with exposure to light. Her pain is aching like in her chest and exacerbated by left arm movements. There is no associated diaphoresis and symptoms are not improved or worsened with physical activity. She denies any fevers or chills, abdominal pain. 12 point review of systems was performed with all pertinent positives and negatives mentioned above and all else is negative Eyes: no complaints ENT: no complaints Respiratory: no complaints Cardiovascular: chest pain Gastrointestinal: no complaints Genitourinary: no complaints Musculoskeletal: bone/joint pain (Left shoulder) Skin: no complaints Neurologic: no complaints Lymphatic: no complaints Psychological: anxiety Immunologic: no complaints Past Medical History Thyroid dysfunction Medical History: diabetes, hypertension Family History Significant Family History: no pertinent family hx Social History Alcohol Use: none Smoking Status: Former smoker Drug Use: none Exam/Review of Systems Vital Signs Vitals Vital Signs Date Time Temp Pulse Resp B/P Pulse Ox O2 Delivery O2 Flow Rate FiO2 06/06/17 11:47 98.1 56 18 135/61 94 06/06/17 07:44 Room Air 06/05/17 15:30 2.0 Intake and Output 06/05/17 06/05/17 06/06/17 15:00 23:00 07:00 Intake Total 1800 ml Balance 1800 ml Exam Has eyes covered because of headache, following commands Constitutional: alert, obese, oriented Head: normocephalic Respiratory: other (Coarse breath sounds bilaterally, no wheezing) Cardiovascular: other (S1-S2 heard), regular rate and rhythm Gastrointestinal: bowel sounds, non-tender, soft Musculoskeletal: other (Tenderness to palpation of left shoulder and left- sided chest wall) Extremities: edema Results Result Diagram: 06/06/17 0633 06/06/17 0633 Results 24 hrs Laboratory Tests Test 06/05/17 18:15 06/05/17 21:05 06/05/17 21:21 06/06/17 06:23 Bedside Glucose 92 173 Troponin I < 0.012 < 0.012 Test 06/06/17 06:33 06/06/17 08:07 06/06/17 11:24 White Blood Count 6.3 Red Blood Count 4.35 Hemoglobin 13.8 Hematocrit 41.9 Mean Corpuscular Volume 96.3 Mean Corpuscular Hemoglobin 31.7 Mean Corpuscular Hemoglobin Concent 32.9 Red Cell Distribution Width 13.3 Platelet Count 208 Mean Platelet Volume 10.7 H Neutrophils % 43.5 Lymphocytes % 46.4 Monocytes % 6.6 Eosinophils % 2.2 Basophils % 1.1 Nucleated Red Blood Cells % 0.0 Neutrophils # 2.8 Lymphocytes # 2.9 Monocytes # 0.4 Eosinophils # 0.1 Basophils # 0.1 Nucleated Red Blood Cells # 0.0 Sodium Level 139 Potassium Level 4.1 Chloride Level 102 Carbon Dioxide Level 25 Anion Gap 16 Blood Urea Nitrogen 20 Creatinine 0.88 Glucose Level 133 # Calcium Level 9.1 Phosphorus Level 4.0 Magnesium Level 1.8 Total Bilirubin 0.4 Direct Bilirubin 0.00 Indirect Bilirubin 0.4 Aspartate Amino Transf (AST/SGOT) 18 Alanine Aminotransferase (ALT/SGPT) 24 Alkaline Phosphatase 61 Total Protein 6.9 # Albumin 4.4 Globulin 2.50 Albumin/Globulin Ratio 1.76 Triglycerides Level 269 H Cholesterol Level 192 LDL Cholesterol, Calculated 106 HDL Cholesterol 32 L Cholesterol/HDL Ratio 6.0 Bedside Glucose 140 119 Medications Medications Current Medications Hydromorphone HCl (Dilaudid) 1 mg Q4H PRN IV PAIN Last administered on 10:08; Admin Dose 1 MG; Start 06/05/17 at 18:00 Ondansetron HCl (Zofran Inj) 4 mg Q6H PRN IV NAUSEA AND/OR VOMITING Last administered on 06/05/17 18:04; Admin Dose 4 MG; Start 06/05/17 at 18:00 Ondansetron HCl (Zofran Inj) 4 mg Q6H PRN IV NAUSEA AND/OR VOMITING; Start 06/05 at 20:00 Acetaminophen (Tylenol Tab) 650 mg Q6H PRN PO PAIN LEVEL 1-3 OR FEVER Last administered on 06/06/17 09:09; Admin Dose 650 MG; Start 06/05/17 at 20:00 Acetaminophen/ Hydrocodone Bitart ([place] (5/325)) 1 tab Q6H PRN PO MODERATE PAIN LEVEL 4-6 Last administered on 06/06/17 07:24; Admin Dose 1 TAB; Start 06/05/17 at 20:00 Morphine Sulfate (morphine) 2 mg Q4H PRN IV SEVERE PAIN LEVEL 7-10; Start at 20:00 Enoxaparin Sodium (Lovenox) 40 mg DAILY SC Last administered on 06/06/17 08:14 ; Admin Dose 40 MG; Start 06/06/17 at 09:00 Aspirin (Aspirin) 81 mg DAILY PO ; Start 06/07/17 at 09:00 Carvedilol (Coreg) 6.25 mg BID PO Last administered on 06/05/17 22:41; Admin Dose 6.25 MG; Start 06/05/17 at 21:00 Nitroglycerin (Nitroglycerin (Sl Tab) 0.4 Mg) 1 tab Q5M PRN SL CHEST PAIN; Start 06/05/17 at 20:00 Insulin Glargine (Lantus) 26 unit QHS SC Last administered on 06/05/17 22:43; Admin Dose 26 UNIT; Start 06/05/17 at 21:00 Diagnostic Test (Pha) (Accu-Chek) 1 ea 02 XX ; Start 06/06/17 at 02:00 Atorvastatin Calcium (Lipitor) 10 mg DAILY@21 PO ; Start 06/06/17 at 21:00 Levothyroxine Sodium (Synthroid) 300 mcg DAILY@06 PO Last administered on 05:50; Admin Dose 300 MCG; Start 06/06/17 at 06:00 Miscellaneous Information 1 ea NOTE XX ; Start 06/05/17 at 21:30 Glucose (Glutose) 15 gm Q15M PRN PO DECREASED GLUCOSE; Start 06/05/17 at 21:30 Glucose (Glutose) 22.5 gm Q15M PRN PO DECREASED GLUCOSE; Start 06/05/17 at 21:30 Dextrose (D50w Syringe) 25 ml Q15M PRN IV DECREASED GLUCOSE; Start 06/05/17 at 21:30 Dextrose (D50w Syringe) 50 ml Q15M PRN IV DECREASED GLUCOSE; Start 06/05/17 at 21:30 Glucagon (Glucagen) 1 mg Q15M PRN IM DECREASED GLUCOSE; Start 06/05/17 at 21:30 Glucose (Glutose) 15 gm Q15M PRN BUCCAL DECREASED GLUCOSE; Start 06/05/17 at 21: 30 Pantoprazole (Protonix Tab) 40 mg DAILY@06 PO Last administered on 06/06/17t 05 :50; Admin Dose 40 MG; Start 06/06/17 at 06:00 Procedures Procedures ECG done June 06 demonstrates sinus bradycardia at 50 bpm, QRS 84 ms, no significant ST abnormality Doe Gu DO Jun 06, 2017 12:48
--- NOTE | 2017-06-06 13:47 | RADRPT ---
Vent Rate: 50 bpm RR Interval: 0 msec TX Interval: 158 msec QRS Duration: 84 msec QT Interval: 478 msec QTC Interval: 435 msec P-R-T [place]: 41 - 62 - 55 degrees Sinus bradycardia Otherwise normal ECG Electronically Signed By: Doe Gu [id number]
--- NOTE | 2017-06-06 16:37 | PDOCDIS ---
Discharge Instructions DIAGNOSIS Discharge Diagnosis Atypical chest pain. CONDITION Patient Condition: Stable HOME CARE INSTRUCTIONS: Diet Instructions: Low Fat /CholesterolSpecial Diet: CARB CONTROLLED FOLLOW UP/APPOINTMENTS Follow-up Plan Prudencio Gonzalez MD Specialty: Internal Medicine Office Address: [address] [place], [place] [id number] Office OTHER ORDERS: Other Orders: 1. Resume home medications 2. Take a carbohydrate controlled, low-cholesterol diet. 3. Resume activities as tolerated. 4. Follow-up with your primary care physician in 1 week. If you do not have a primary care physician, please call Dr. Prudencio Gonzalez's office JAVON PAULA NP Jun 06, 2017 16:36
[2017-06-06] MEDS ORDERED: FIORICET PO (16:38)
[2017-06-06 16:39] LABS: BARBITURATES Negative (NEGATIVE)
[2017-06-06 16:46] LABS: BENZODIAZEPINES Negative (NEGATIVE); CANNABINOIDS Negative (NEGATIVE); COCAINE Negative (NEGATIVE); OPIATES Positive (NEGATIVE)
--- NOTE | 2017-06-06 17:06 | DS ---
Date/Time of Note Date/Time of Note DATE: 06/06/17 TIME: 17:04 Discharge Summary Admission/Discharge Info Admit Date/Time Jun 05, 2017 at 14:54 Discharge Date/Time Discharge Diagnosis 1. Atypical chest pain. 2. Essential hypertension. 3. Type 2 diabetes mellitus. 4. Dyslipidemia. 5. Hypothyroidism. 6. Obesity. BMI of 43.7 kg/m. 7. Cephalgia. Resolved. Patient Condition: Stable Consults Doe Gu DO, Cardiology. Procedures 2D Echocardiogram Normal left ventricular systolic function. Normal left ventricular cavity size. Mild concentric left ventricular hypertrophy. Ejection fraction is visually estimated at 60 %. Tissue Doppler/Mitral Doppler indices are consistent with impaired relaxation (Stage I diastolic dysfunction). Normal right ventricular size. Normal right ventricular systolic function. There is mild enlargement of left atrium. The right atrium is normal in size. Normal appearance of the mitral valve. Mild mitral valve regurgitation. Normal appearance of the tricuspid valve. Estimated peak PA systolic pressure 32 mmHg. There is mild tricuspid regurgitation. Normal appearance of the aortic valve. No significant aortic stenosis or insufficiency. Normal pericardium with no significant pericardial effusion. CXR IMPRESSION: No acute disease. Hx of Present Illness Patient is a 51-year-old female with history of choledocholithiasis, anxiety, obesity, diabetes, hypertension, hypothyroidism. Patient presents with chest pain for the past 4-5 days, she describes it as a pressure sensation in her chest. Patient does report increased increase in stress has been feeling anxious as of late. Patient has no other complaints she does report that she is pain in her left shoulder which is exacerbated by movement of that shoulder, she stated that she has tried various [id number] pain medications with no relief. Patient denied any nausea vomiting fevers or chills. Hospital Course The patient was admitted to inpatient telemetry floor. Serial troponins were ordered. A 2D echocardiogram was ordered. The patient's serial troponins remained negative. The patient's 2D echocardiogram showed preserved left ventricular ejection fraction. The patient was evaluated by cardiology. Cardiology recommended no further cardiac workup on this patient since the patient's chest pain is atypical. The patient has underlying essential hypertension. The patient was maintained on antihypertensives for the same. The patient has underlying diabetes mellitus. Hemoglobin A1c was found to be 8.0. She was maintained on sliding scale insulin with well controlled blood sugars. The patient has underlying dyslipidemia. The patient's fasting lipid panel was suboptimal. The patient was maintained on statins. The patient was also complaining of severe headache. This was thought to be secondary to the nitroglycerin patch along with the sublingual nitroglycerin she received during hospitalization. The patient's headache responded well to Fioricet. The patient's chest pain has resolved. The patient's chest pain is most likely musculoskeletal. Cardiology recommended no further cardiac workup. Hence the patient will be discharged home today. Discharge Instructions 1. Resume home medications 2. Take a carbohydrate controlled, low-cholesterol diet. 3. Resume activities as tolerated. 4. Follow-up with your primary care physician in 1 week. If you do not have a primary care physician, please call Dr. Prudencio Gonzalez's office The patient verbalized understanding of her discharge instructions. At this time I would like to thank Dr. Gu for seeing the patient and providing clinical recommendations. Case discussed with Dr. Nelson. Home Meds Active Scripts Acetamin/Butalbital/Caffeine* (Fioricet*) [id number] Tab, 1 TAB PO Q4H Y for PAIN LEVEL 1-5, #10 TAB Prov:JAVON PAULA ADULT [employer]OLE OFFICER 06/06/17 Reported Medications Simvastatin* (Zocor*) 10 Mg Tablet, 10 MG PO QHS, #30 TAB 06/05/17 Lansoprazole* (Lansoprazole*) 15 Mg Capsule.dr 15 MG PO TID, CAP 06/05/17 Metformin Hcl* (Metformin Hcl*) 500 Mg Tablet, 500 MG PO WITH BREAKFAST DINNE, # 60 TAB 06/05/17 Insulin Glargine* (Lantus*) 100 Unit/Ml Soln, 26 UNIT SC QHS, #1 VIAL 06/05/17 Insulin Glulisine (Apidra Solostar) 100 Unit/1 Ml Insuln.pen, 8 UNIT SQ AC MEALS , #1 TUB 06/05/17 Levothyroxine Sodium* (Levothyroxine Sodium*) 300 Mcg Tablet, 300 MCG PO BEFORE BREAKFAST, #30 TAB 06/05/17 Discontinued Reported Medications Levothyroxine Sodium* (Levothyroxine Sodium*) 25 Mcg Tablet, 25 MCG PO BEFORE BREAKFAST, #30 TAB 09/22/16 Levothyroxine Sodium* (Levothyroxine Sodium*) 300 Mcg Tablet, 300 MCG PO BEFORE BREAKFAST, #30 TAB 09/22/16 Insulin Glargine* (Lantus*) 100 Unit/Ml Soln, 20 UNIT SC QHS, #1 VIAL 07/27/16 Insulin Aspart* (Novolog Insulin Pen*) 100 Unit/Ml Soln, 5 UNIT SC AC MEALS , EA 07/27/16 Benazepril Hcl* (Benazepril Hcl*) 10 Mg Tablet, 10 MG PO DAILY, #30 04/24/16 Simvastatin* (Zocor*) 10 Mg Tablet, 10 MG PO QHS, #30 04/24/16 Discontinued Scripts Ibuprofen* (Motrin*) 400 Mg Tab, 400 MG PO Q6, #20 TAB Prov:ANA GATES PA-C 12/06/16 Ondansetron Hcl* (Zofran*) 4 Mg Tablet, 4 MG PO Q8 for VOMITTING, #20 TAB Prov:SYLVIA SOSA MD 08/20/16 Metformin Hcl* (Metformin Hcl*) 1,000 Mg Tablet, 1000 MG PO WITH BREAKFAST, #30 TAB 1 Refill Prov:HARLEY MARIA 07/08/16 Follow-up Plan Follow-up with your primary care physician in 1 week. Primary Care Provider Brandon Jaeger Time spent on discharge: > 30 minutes Pending Labs Laboratory Tests Test 06/05/17 18:15 06/05/17 21:05 06/05/17 21:21 06/06/17 06:23 Bedside Glucose 92mg/dL (70-220) 173mg/dL (70-220) Troponin I < 0.012ng/ml (0.00-0.12) < 0.012ng/ml (0.00-0.12) Test 06/06/17 06:33 06/06/17 08:07 06/06/17 11:24 06/06/17 14:00 White Blood Count 6.310^3/ul (4.8-10.8) Red Blood Count 4.3510^6/ul (4.20-5.40) Hemoglobin 13.8g/dl (12.0-16.0) Hematocrit 41.9% (37.0-47.0) Mean Corpuscular Volume 96.3fl (82.0-101.0) Mean Corpuscular Hemoglobin 31.7pg (29.0-33.0) Mean Corpuscular Hemoglobin Concent 32.9g/dl (32.0-37.0) Red Cell Distribution Width 13.3% (11.5-14.5) Platelet Count 14041^3/UL (140-415) Mean Platelet Volume 10.7fl (7.4-10.4) Neutrophils % 43.5% (39.0-77.0) Lymphocytes % 46.4% (15.0-51.0) Monocytes % 6.6% (0.0-11.0) Eosinophils % 2.2% (0.0-7.0) Basophils % 1.1% (0.0-2.0) Nucleated Red Blood Cells % 0.0/100WBC (0.0-0.0) Neutrophils # 2.810^3/ul (1.6-7.5) Lymphocytes # 2.910^3/ul (0.8-2.9) Monocytes # 0.410^3/ul (0.3-0.9) Eosinophils # 0.110^3/ul (0.0-0.5) Basophils # 0.110^3/ul (0.0-0.1) Nucleated Red Blood Cells # 0.010^3/ul (0.0-0.0) Sodium Level 139mmol/L (135-144) Potassium Level 4.1mmol/L (3.5-5.1) Chloride Level 102mmol/L (97-110) Carbon Dioxide Level 25mmol/L (21-31) Anion Gap 16 (8-16) Blood Urea Nitrogen 20mg/dl (7-20) Creatinine 0.88mg/dl (0.44-1.00) Glucose Level 133mg/dl (70-220) Hemoglobin A1c 8.0% (0-5.9) Calcium Level 9.1mg/dl (8.4-10.2) Phosphorus Level 4.0mg/dl (2.5-4.9) Magnesium Level 1.8mg/dl (1.7-2.5) Total Bilirubin 0.4mg/dl (0.2-1.3) Direct Bilirubin 0.00mg/dl (0.00-0.20) Indirect Bilirubin 0.4mg/dl (0-1.1) Aspartate Amino Transf (AST/SGOT) 18IU/L (15-46) Alanine Aminotransferase (ALT/SGPT) 24IU/L (13-69) Alkaline Phosphatase 61IU/L (42-121) Total Protein 6.9g/dl (6.1-8.1) Albumin 4.4g/dl (3.3-4.9) Globulin 2.50g/dl (1.3-3.2) Albumin/Globulin Ratio 1.76 Triglycerides Level 269mg/dl (0-149) Cholesterol Level 192mg/dl (100-200) LDL Cholesterol, Calculated 106mg/dl HDL Cholesterol 32mg/dl (37-92) Cholesterol/HDL Ratio 6.0RATIO Bedside Glucose 140mg/dL (70-220) 119mg/dL (70-220) Urine Opiates Screen Positive (NEGATIVE) Urine Barbiturates Negative (NEGATIVE) Urine Amphetamines Screen Negative (NEGATIVE) Urine Benzodiazepines Screen Negative (NEGATIVE) Urine Cocaine Screen Negative (NEGATIVE) Urine Cannabinoids Negative (NEGATIVE) JAVON PAULA NP Jun 06, 2017 17:06 JAVON PAULA NP Jun 06, 2017 17:06
[2017-06-06] MEDS ORDERED: ATORVASTATIN 10 MG TAB PO SCH (21:00)
[2017-06-07] MEDS ORDERED: ASPIRIN 81 MG TAB PO SCH (09:00)
== END 2017-06-06 17:50 | disposition home or self-care (01) ==
LOC: E/R 11:09 → MS4 14:54
PROVIDERS: ADMIT Internal Medicine; ATTEND Internal Medicine
DX: R07.89 Other chest pain (principal); E11.9 Type 2 diabetes mellitus without complications; E03.9 Hypothyroidism, unspecified; I10 Essential (primary) hypertension; Z79.4 Long term (current) use of insulin; M19.90 Unspecified osteoarthritis, unspecified site; E66.9 Obesity, unspecified; Z68.41 Body mass index [BMI] 40.0-44.9, adult; Z87.891 Personal history of nicotine dependence; Z79.82 Long term (current) use of aspirin
CPT/HCPCS: 36415; 71010; 80053; 80061; 80307; 82962; 83036; 83735; 84100; 84484; 85025; 93005; 93306; 96374; 96375; J1170; J1650; J1815; J2060; J2405; Z7500; Z7502; Z7610; G0378; J7030

== ENCOUNTER 2017-08-15 19:12 | Emergency (ER) | payer BC, MEDICAID ==
[~2017-08-15] VITALS: Ht 162.6 cm; Wt 114.5 kg
[~2017-08-15 19:12] MED LIST changes: -BENA10TA48 PO; +FIORICET PO; -IBUP400T22 PO; +INSU100I17 SQ; +LANS15CA5 PO; -LEVO25TA53 PO; -METF1000 PO; +METF500T4 PO; -NOVO3I SC; -ONDA4TAB8 PO
[2017-08-15 19:18] VITALS: Ht 162.6 cm; Wt 114.5 kg
[2017-08-15] MEDS ORDERED: METHYLPREDNISOLONE 125 MG INJ IM ONE (20:30)
[2017-08-15] MEDS ORDERED: CEPH-443 PO (20:30)
[2017-08-15] MEDS ORDERED: DIPHENHYDRAMINE 50 MG INJ IM ONE (20:30)
[2017-08-15] MEDS ORDERED: SULF1TAB31 PO (20:30)
[2017-08-15] MEDS ORDERED: BEN50 PO (20:30)
--- NOTE | 2017-08-15 20:38 | ERD ---
ER Documentation Chief Complaint Date/Time DATE: 08/15/17 TIME: 20:34 Chief Complaint sp mosquito bite, left jaw swelling HPI 52-year-old female presents here in emergency department for complaints of an insect bite on the left jaw area, now has redness and swelling on affected area , had a insect bite in the yard this morning. Patient describes the pain on affected area as throbbing pain, 4/10 scale, not better or worse with anything. Patient denies any fever or chills. Patient did not take any medications to help with symptoms. ROS All systems reviewed and are negative except as per history of present illness. Medications Home Meds Active Scripts Diphenhydramine Hcl* (Benadryl*) 50 Mg Cap, 50 MG PO Q6H, #30 CAP Prov:CHARLY BETTS CHIP PERSON 08/15/17 Sulfamethoxazole/Trimethoprim* (Bactrim Ds* Tablet) 1 Each Tablet, 1 TAB PO BID , #20 TAB Prov:CHARLY BETTS CHIP PERSON 08/15/17 Cephalexin* (Keflex*) 500 Mg Capsule, 500 MG PO QID for 10 Days, CAP Prov:CHARLY BETTS CHIP PERSON 08/15/17 Acetamin/Butalbital/Caffeine* (Fioricet*) [id number] Tab, 1 TAB PO Q4H Y for PAIN LEVEL 1-5, #10 TAB Prov:JAVON PAULA CHIP PERSON 06/06/17 Reported Medications Simvastatin* (Zocor*) 10 Mg Tablet, 10 MG PO QHS, #30 TAB 06/05/17 Lansoprazole* (Lansoprazole*) 15 Mg Capsule.dr, 15 MG PO TID, CAP 06/05/17 Metformin Hcl* (Metformin Hcl*) 500 Mg Tablet, 500 MG PO WITH BREAKFAST DINNE, # 60 TAB 06/05/17 Insulin Glargine* (Lantus*) 100 Unit/Ml Soln, 26 UNIT SC QHS, #1 VIAL 06/05/17 Insulin Glulisine (Apidra Solostar) 100 Unit/1 Ml Insuln.pen, 8 UNIT SQ AC MEALS , #1 TUB 06/05/17 Levothyroxine Sodium* (Levothyroxine Sodium*) 300 Mcg Tablet, 300 MCG PO BEFORE BREAKFAST, #30 TAB 06/05/17 Allergies Allergies: Coded Allergies: morphine (Verified Allergy, Mild, 08/15/17) PMhx/Soc History of Surgery: Yes (ERCP W/ STENT PLACEMENT, HERNIA REPAIR, CHOLECYSTECTOMY) Anesthesia Reaction: No Hx Neurological Disorder: No Hx Respiratory Disorders: No Hx Cardiac Disorders: Yes (HTN, HYPERLIPIDEMIA) Hx Psychiatric Problems: Yes (ANXIETY) Hx Miscellaneous Medical Probl: Yes (DM, hypothyroid) Hx Alcohol Use: No Hx Substance Use: No Hx Tobacco Use: No Smoking Status: Never smoker FmHx Family History: No coronary disease, No diabetes, No other Physical Exam Vitals Vital Signs Date Time Temp Pulse Resp B/P Pulse Ox O2 Delivery O2 Flow Rate FiO2 08/15/17 19:18 97.8 82 20 175/90 100 Physical Exam GENERAL: The patient is well developed and appropriate for usual state of health, in no apparent distress. CHEST: Clear to auscultation bilaterally. There are no rales, wheezes or rhonchi. HEART: Regular rate and rhythm. No murmurs, clicks, rubs or gallops. No S3 or S4. ABDOMEN: Soft, nontender and nondistended. Good bowel sounds. No rebound or guarding. No gross peritonitis. No gross organomegaly or masses. No Howard sign or McBurney point tenderness. BACK: No midline or flank tenderness. EXTREMITIES: Equal pulses bilaterally. There is no peripheral clubbing, cyanosis or edema. No focal swelling or erythema. Full range of motion. Grossly neurovascularly intact. NEURO: Alert and oriented. Cranial nerves 2-12 intact. Motor strength in all 4 extremities with 5/5 strength. Sensation grossly intact. Normal speech and gait. SKIN:3.5 cm erythematous indurated area and the left jaw area, tender on palpation, no fluctuance noted. There is no apparent rash or petechia. The skin is warm and dry. HEMATOLOGIC AND LYMPHATIC: There is no evidence of excessive bruising or lymphedema. No gross cervical, axillary, or inguinal lymphadenopathy. Results 24 hrs Current Medications Medications (Trade) Dose Ordered Sig/Josephine Route PRN Reason Start Time Stop Time Status Last Admin Dose Admin Diphenhydramine HCl (Benadryl) 50 mg ONCE ONCE IM 08/15/17 20:30 08/15/17 20:31 DC Methylprednisolone Sodium Succinate (Solu-Medrol) 125 mg ONCE ONCE IM 08/15/17 20:30 08/15/17 20:31 DC Benadryl and Solu-Medrol was given here in emergency department for possible reaction to the insect bite. She tolerated medication well. Procedures/MDM Medical decision making: Patient's symptoms most likely is consistent with infected insect bite. No symptoms of any abscess,no symptoms of any sepsis. Patient appears well and is hemodynamically stable. Prescription was given forBenadryl, Keflex Bactrim ibuprofen, is advised to apply warm, is on affected area, recheck in 2 days. Patient was advised to return to emergency department for any worsening symptoms. Disposition: Home. Stable. Departure Diagnosis: Primary Impression: Infected insect bite Encounter type: initial encounter Qualified Code: W57.XXXA - Bug bite with infection, initial encounter Condition: Stable Patient Instructions: Insect Sting/Bite, Infected CHARLY BETTS NP Aug 15, 2017 20:38
== END 2017-08-15 21:05 | disposition home or self-care (01) ==
LOC: FTE 19:12
DX: S00.86XA Insect bite (nonvenomous) of other part of head, initial encounter (principal); I10 Essential (primary) hypertension; E03.9 Hypothyroidism, unspecified; E11.9 Type 2 diabetes mellitus without complications; W57.XXXA Bitten or stung by nonvenomous insect and other nonvenomous arthropods, initial encounter; Y92.9 Unspecified place or not applicable; Z79.4 Long term (current) use of insulin; Z79.84 Long term (current) use of oral hypoglycemic drugs
CPT/HCPCS: 96372; J1200; J2930; Z7502

== ENCOUNTER 2017-11-26 14:19 | Emergency (ER) | END 2017-11-26 18:15 | disposition left against medical advice (07) ==

== ENCOUNTER 2017-12-12 01:32 | Inpatient (IN) | END 2017-12-15 17:48 | disposition home or self-care (01) | DRG 103 ==

== ENCOUNTER 2018-06-16 19:40 | Emergency (ER) | END 2018-06-17 07:35 | disposition home or self-care (01) ==

== ENCOUNTER 2018-08-27 22:48 | Inpatient (IN) | END 2018-08-31 15:40 | disposition home or self-care (01) | DRG 644 ==

== ENCOUNTER 2018-09-09 07:47 | Emergency (ER) | END 2018-09-09 10:04 | disposition home or self-care (01) ==

== ENCOUNTER 2019-02-01 13:59 | Emergency (ER) | payer BC ==
[~2019-02-01] VITALS: Ht 165.1 cm; Wt 113.3 kg
[~2019-02-01 13:59] MED LIST changes: +DOCU-144 PO; -LANS15CA5 PO; +LEVO100T8 PO; +LEVO25TA6 PO; -LEVO300T5 PO; +LINA5TAB PO; +METF500T24 PO; -METF500T4 PO; +POLY17PO6 PO
[2019-02-01 14:05] VITALS: Ht 165.1 cm; Wt 113.3 kg
[2019-02-01] MEDS ORDERED: morphine 4 MG/ML VIAL IV STA (20:28)
[2019-02-01] MEDS ORDERED: ONDANSETRON 4 MG INJ IV STA (20:28)
[2019-02-01] MEDS ORDERED: SOD CHLORIDE 0.9% 1,000 ML IV STA (20:28)
--- NOTE | 2019-02-01 21:17 | ERD ---
ER Documentation Chief Complaint Chief Complaint Complains of numbness and arm pain x since this am HPI 53-year-old female presents with lower right quadrant pain and vomiting for the past 3 days. To note, chief complaint states that she is been having numbness but she denies any numbness and says that that chief complaint was probably from previous visit. The vomitus is described as nonbilious and nonbloody. Describes the lower right quadrant pain is 10 out of 10 in intensity. She has a history of cholecystectomy as well as recurrent UTIs. As well as type 2 diabetes. Denies any allergies. ROS All systems reviewed and are negative except as per history of present illness. Medications Home Meds Active Scripts Ciprofloxacin Hcl* (Ciprofloxacin Hcl*) 500 Mg Tablet, 500 MG PO BID for UTI for 7 Days, TAB Prov:REUBEN OCONNOR 02/02/19 Ibuprofen* (Motrin*) 600 Mg Tab, 600 MG PO Q6H PRN for PAIN AND OR ELEVATED TEMP, #30 TAB Prov:REUBEN OCONNOR 02/02/19 Ondansetron (Ondansetron Odt) 8 Mg Tab.rapdis, 8 MG PO Q6H PRN for NAUSEA AND/OR VOMITING, #10 TAB Prov:REUBEN OCONNOR 02/02/19 Polyethylene Glycol* (Miralax*) 17 Gm Powd.pack, 17 GM PO DAILY, #7 Prov:SYLVIA MARIE MD 09/09/18 Docusate Sodium* (Colace*) 100 Mg Capsule, 100 MG PO TID, #30 CAP Prov:SYLVIA MARIE MD 09/09/18 Linagliptin (TRADJENTA) 5 Mg Tablet, 5 MG PO DAILY, #30 TAB Prov:JAVON PALUA NP 08/31/18 Levothyroxine Sodium* (Levothyroxine Sodium*) 25 Mcg Tablet, 25 MCG PO DAILY@06, #30 TAB Prov:JAVON PAULA NP 08/31/18 Levothyroxine Sodium* (Levothyroxine Sodium*) 100 Mcg Tablet, 300 MCG PO DAILY@06, #30 TAB Prov:JAVON PAULA NP 18 Acetamin/Butalbital/Caffeine* (Fioricet*) [id number] Tab, 1 TAB PO Q4H PRN for PAIN LEVEL 1-5, #10 TAB Prov:JAVON PAULA MEDIA SERVICES SPECIALIST 06/06/17 Reported Medications Simvastatin* (Zocor*) 10 Mg Tablet, 10 MG PO QHS, #30 TAB 06/05/17 Metformin Hcl* (Metformin Hcl*) 500 Mg Tablet, 500 MG PO WITH BREAKFAST DINNE, #60 TAB 06/05/17 Insulin Glargine* (Lantus*) 100 Unit/Ml Soln, 26 UNIT SC QHS, #1 VIAL 06/05/17 Insulin Glulisine (Apidra Solostar) 100 Unit/1 Ml Insuln.pen, 8 UNIT SQ AC MEALS, #1 TUB 06/05/17 Allergies Allergies: Coded Allergies: No Known Allergy (Unverified , 09/09/18) PMhx/Soc History of Surgery: Yes (cholecystectomy, hernia repair x2) Anesthesia Reaction: No Hx Neurological Disorder: No Hx Respiratory Disorders: No Hx Cardiac Disorders: Yes (chest pain, HTN, HLD) Hx Psychiatric Problems: Yes (anxiety) Hx Miscellaneous Medical Probl: Yes (CHOLECYSTECTOMY) Hx Alcohol Use: No Hx Substance Use: No Hx Tobacco Use: No Smoking Status: Never smoker FmHx Family History: No diabetes, No coronary disease, No other Physical Exam Vitals Vital Signs Date Temp Pulse Resp B/P (MAP) Pulse Ox O2 O2 Flow FiO2 Time Delivery Rate 02/02/19 98.2 58 20 115/56 94 Room Air 01:18 (75) 02/01/19 98.5 73 20 142/80 99 14:05 (100) Physical Exam Const: No acute distress Head: Atraumatic Eyes: Normal Conjunctiva. No jaundice noted. ENT: Normal External Ears, Nose and Mouth. Neck: Full range of motion. No meningismus. Resp: Clear to auscultation bilaterally Cardio: Regular rate and rhythm, no murmurs Abd: Positive McBurney's tenderness. Jumping does elicit some pain. Skin: No petechiae or rashes. No jaundice. Back: No midline. Moderate CVA tenderness. Ext: No cyanosis, or edema Neur: Awake and alert Psych: Normal Mood and Affect Result Diagram: 02/01/19204902/01/192049 Results 24 hrs Laboratory Tests Test 02/01/19 20:50 02/01/19 20:59 02/01/19 21:08 White Blood Count 7.1 10^3/ul Red Blood Count 4.72 10^6/ul Hemoglobin 14.7 g/dl Hematocrit 45.0 % Mean Corpuscular Volume 95.3 fl Mean Corpuscular Hemoglobin 31.1 pg Mean Corpuscular 32.7 g/dl Hemoglobin Concent Red Cell Distribution Width 13.6 % Platelet Count 254 10^3/UL Mean Platelet Volume 9.5 fl Immature Granulocytes % 0.400 % Neutrophils % 44.8 % Lymphocytes % 43.8 % Monocytes % 7.0 % Eosinophils % 3.0 % Basophils % 1.0 % Nucleated Red Blood Cells % 0.0 /100WBC Immature Granulocytes # 0.030 10^3/ul Neutrophils # 3.2 10^3/ul Lymphocytes # 3.1 10^3/ul Monocytes # 0.5 10^3/ul Eosinophils # 0.2 10^3/ul Basophils # 0.1 10^3/ul Nucleated Red Blood Cells # 0.0 10^3/ul Sodium Level 143 mmol/L Potassium Level 4.1 mmol/L Chloride Level 105 mmol/L Carbon Dioxide Level 26 mmol/L Anion Gap 12 Blood Urea Nitrogen 14 mg/dl Creatinine 0.80 mg/dl Est Glomerular Filtrat > 60 mL/min Rate mL/min Glucose Level 168 mg/dl Calcium Level 9.8 mg/dl Total Bilirubin 0.4 mg/dl Direct Bilirubin 0.00 mg/dl Indirect Bilirubin 0.4 mg/dl Aspartate Amino Transf (AST/SGOT) 17 IU/L Alanine 12 IU/L Aminotransferase (ALT/SGPT) Alkaline Phosphatase 79 IU/L Total Protein 8.3 g/dl Albumin 4.7 g/dl Globulin 3.60 g/dl Albumin/Globulin Ratio 1.30 Lipase 87 U/L Urine Color YELLOW Urine Clarity CLOUDY Urine pH 5.0 Urine Specific Dane 1.021 Urine Ketones NEGATIVE mg/dL Urine Nitrite POSITIVE mg/dL Urine Bilirubin NEGATIVE mg/dL Urine Urobilinogen NEGATIVE mg/dL Urine Leukocyte Esterase 3+ Marion/ul Urine Microscopic RBC 12 /HPF Urine Microscopic WBC > 182 /HPF Urine Squamous Epithelial Cells FEW /HPF Urine Amorphous Crystals FEW /HPF Urine Bacteria MANY /HPF Urine Mucus FEW /HPF Urine Hemoglobin 1+ mg/dL Urine Glucose NEGATIVE mg/dL Urine Total Protein 1+ mg/dl POC Beta HCG, Qualitative NEGATIVE Current Medications Medications Dose Sig/Josephine Start Time Status Last (Trade) Ordered Route PRN Stop Time Admin Dose Reason Admin Sodium 1,000 ml @ Q1H STAT 02/01/19 DC 02/01/19 Chloride 1,000 mls/hr IV 20:28 02/01/19 21:09 21:27 Morphine 4 mg ONCE STAT 02/01/19 DC 02/01/19 Sulfate IV 20:28 02/01/19 21:02 (morphine) 20:33 Ondansetron 4 mg ONCE STAT 02/01/19 DC 02/01/19 HCl (Zofran IV 20:28 02/01/19 21:02 Inj) 20:33 IV Flush 10 ml STK-MED 02/01/19 DC (NS 10 ml) ONCE .ROUTE 21:30 02/01/19 21:31 Sodium 100 ml @ ud STK-MED 02/01/19 DC Chloride ONCE .ROUTE 21:30 02/01/19 21:31 Iodixanol 100 ml STK-MED 02/01/19 DC (Visipaque ONCE .ROUTE 21:30 02/01/19 Locm) 21:31 Morphine 2 mg ONCE STAT 02/01/19 DC 02/01/19 Sulfate IV 23:30 02/01/19 23:39 (morphine) 23:34 Morphine 2 mg ONCE STAT 02/02/19 DC 02/02/19 Sulfate IV 00:04 02/02/19 00:23 (morphine) 00:05 Ceftriaxone 1 gm ONCE ONCE 02/02/19 DC Sodium IM 00:30 02/02/19 (Rocephin) 00:30 500 mg ONCE ONCE 02/02/19 DC 02/02/19 Ciprofloxacin PO 00:30 02/02/19 00:22 (Cipro) 00:31 Ceftriaxone 50 ml @ ONCE ONCE 02/02/19 DC 02/02/19 Sodium 100 mls/hr IVPB 00:30 02/02/19 00:23 00:59 Sodium 1,000 ml @ Q1H STAT 02/02/19 DC Chloride 1,000 mls/hr IV 01:30 02/02/19 01:33 Procedures/MDM DIAGNOSTIC IMAGING REPORT Patient: LEONEL JANSEN : 1965 Age: 53 Sex: F MR #: [id number] DOS: 03/07/19 2028 Ordering MD: REUBEN OCONNOR Location: [facility] Room/Bed: PROCEDURE: CT abdomen and pelvis with contrast. CLINICAL INDICATION: 53-year-old female. Abdominal pain. TECHNIQUE: CT scan of the abdomen and pelvis with contrast was performed on a multi-slice CT scanner utilizing axial imaging from the lung bases through the pubis symphysis. One or more the following does reduction techniques were utilized: Automated exposure control, adjustment of the mA/ or kV according to patient's size, or use of iterative reconstruction technique. Sagittal and coronal reformatted images were made. DICOM images are available for review. The CTDIvol is 22.41 mGy and the DLP is 13 51.44 mGycm. CONTRAST: 95 cc Visipaque 320 IV COMPARISON: CT abdomen pelvis 09/09/2018 FINDINGS: CT abdomen Visualized lung bases: Dependent changes posterior lower lobes. No significant pleural or pericardial effusion. Liver: The right hepatic lobe measures greater than 21 cm in cranial caudal dimension. Smaller of focal fatty infiltration deep segment 4B, anterior to the kathrine hepatis. Patent portal vein. Gallbladder and bile ducts: Previous cholecystectomy. Common hepatic duct measures 13 mm. The common bile duct measures 10.4 mm in the pancreas. No distal ductal calcification. Spleen: Normal appearance. Pancreas: Normal appearance. No ductal dilatation. No mass. No peripancreatic stranding. Adrenal glands: Normal appearance. Kidneys: Symmetric nephrograms. No hydronephrosis or renal stones. There is a decreased attenuation involving enlarged right upper pole medullary tissue, present on the prior study. Vasculature: No abdominal aortic aneurysm. Calcified plaque absent. Negative IVC. Lymph nodes: No adenopathy. GI: No hiatal hernia. No evidence of obstruction or bowel wall thickening. Diverticulosis descending colon. Peritoneal cavity: No free fluid or free air. Abdominal wall: Windsor shaped fluid collection noted in the deep subcutaneous fat of the anterior abdominal wall at midline, present on the 09/09/[address] pelvis GI: Negative terminal ileum. Negative appendix. Sigmoid diverticulosis. Negative rectum. : Normal appearing uterus and ovaries. Partially filled urinary bladder. Normal distal ureters. Peritoneal cavity: No free fluid or loculated fluid collections. Lymph nodes: No adenopathy. Osseous structures: No lytic or blastic lesions. No endplate fractures. IMPRESSION: 1. Hepatomegaly. 2. Enlarged common bile duct and common hepatic duct in a patient with previous cholecystectomy. The biliary ductal dilatation is new from 2018. Differential diagnosis includes choledocholithiasis, distal duct sludge or distal duct stricture. Consider non emergent MRI abdomen with MRCP for further evaluation. 3. Windsor shaped fluid collection in the deep subcutaneous fat of the midline of the abdomen, present on the prior study. This may represent a small seroma or hematoma at the inferior margin of the midline supraumbilical anterior abdominal wall incision. 4. Diverticulosis descending and sigmoid colon. No acute diverticulitis. 5. Persistent area of decreased attenuation in the enlarged right upper pole renal medullary space. Findings may be secondary to nonspecific edema. Low attenuation changes were present at this location on the noncontrast CT abdomen study from 09/09/2018. Does the patient have any known renal issues? RPTAT: HLRS Physician Raegan Date Time Electronically viewed and signed by Physician Raegan on 02/01/2019 22:58 RS/ CC: REUBEN OCONNOR [id number] DIAGNOSTIC IMAGING REPORT Patient: LEONEL JANSEN : 1965 Age: 53 Sex: F MR #: [id number] DOS: 02/01/19 0000 Ordering MD: REUBEN OCONNOR Location: [facility] Room/Bed: PROCEDURE: Pelvic ultrasound. CLINICAL INDICATION: Pelvic pain. TECHNIQUE: Multiple sonographic images of the pelvis were obtained utilizing a transabdominal and endovaginal technique. The images were reviewed on a PACS workstation. COMPARISON: 01/13/2010. FINDINGS: The uterus is visualized and measures 8.3 x 3.8 x 4.5 cm. No abnormal uterine mass is identified. The endometrial echo complex is homogeneous and measures 7.7 mm. There is no evidence for free fluid. Bilateral ovaries are not visualized. No adnexal masses are identified. IMPRESSION: Bilateral ovaries not visualized. Otherwise unremarkable pelvic ultrasound. .eSvero Henderson MD, MD Date Time Electronically viewed and signed by .Severo Henderson MD, MD on 02/01/2019 21:56 .T/ CC: REUBEN OCONNOR [phone] 53-year-old female presents with lower right quadrant pain and vomiting for the past 3 days. To note, chief complaint states that she is been having numbness but she denies any numbness and says that that chief complaint was probably from previous visit. The vomitus is described as nonbilious and nonbloody. Describes the lower right quadrant pain is 10 out of 10 in intensity. She has a history of cholecystectomy as well as recurrent UTIs. As well as type 2 diabetes. Denies any allergies. Blood labs labs are drawn and results within normal limits. There is concern for possible appendicitis because of the right lower quadrant pain so CT was ordered. There is no appendicitis on the CT however there was a dilated bile duct. I discussed the case with my supervising physician Dr. Green and he stated that the likelihood of choledocholithiasis or other biliary pathology is very low since patient's liver enzymes and bilirubin are within normal limits. In addition, patient's pain is on was in the lower right quadrant not upper right quadrant. In addition patient had no jaundice or fever. UA was drawn and showed UTI. Patient was having CVA tenderness and other symptoms there was concern for pyelonephritis the patient was treated accordingly with IV ceftriaxone and prescription for ciprofloxacin. Patient was given fluids as well as medicine for pain in the ER and upon discharge patient felt better. Patient was told to follow-up in 8 hours for repeat examination which she agreed to do. I have low suspicion for appendicitis, intra-abdominal abscess, choledocholithiasis, acute abdomen, bowel obstruction, ovarian torsion, or other emergent condition. Patient discharged with strict ER precautions. Patient advised to follow up with PMD. All questions answered at discharge. Departure Diagnosis: Primary Impression: Abdominal pain Abdominal location: right lower quadrant Qualified Codes: R10.31 - Right l ower quadrant pain Condition: Stable REUBEN OCONNOR Feb 01, 2019 21:17
[2019-02-01] MEDS ORDERED: SOD CHLORIDE 0.9% 100 ML ONE (21:30)
[2019-02-01] MEDS ORDERED: IODIXANOL LOCM 100 ML BTL ONE (21:30)
[2019-02-01] MEDS ORDERED: morphine 2 MG INJ IV STA (23:30)
[2019-02-02] MEDS ORDERED: morphine 2 MG INJ IV STA (00:04)
[2019-02-02] MEDS ORDERED: CIPR500T4 PO (00:12)
[2019-02-02] MEDS ORDERED: ONDA8TAB14 PO (00:12)
[2019-02-02] MEDS ORDERED: IBUP-1542 PO (00:12)
[2019-02-02] MEDS ORDERED: CEFTRIAXONE 1 GM/50 ML (PMX) 50 ML IVPB ONE (00:30)
[2019-02-02] MEDS ORDERED: CEFTRIAXONE 1 GM INJ IM ONE (00:30)
[2019-02-02] MEDS ORDERED: CIPROFLOXACIN 500 MG TAB PO ONE (00:30)
[2019-02-02 01:18] VITALS: BP 115/56; PULSE 58; RESP 20
[2019-02-02] MEDS ORDERED: SOD CHLORIDE 0.9% 1,000 ML IV STA (01:30)
== END 2019-02-02 01:50 | disposition home or self-care (01) ==
LOC: FTE 13:59
DX: R10.31 Right lower quadrant pain (principal); I10 Essential (primary) hypertension; R11.10 Vomiting, unspecified; E11.9 Type 2 diabetes mellitus without complications; R10.2 Pelvic and perineal pain; Z79.4 Long term (current) use of insulin
CPT/HCPCS: 36415; 74177; 76830; 76856; 80053; 81001; 81025; 83690; 85025; 96374; 96375; 96376; J0696; J2270; J2405; J7030; Q9967; Z7502; Z7610

== ENCOUNTER 2019-03-06 10:37 | Inpatient (IN) | payer BC ==
[~2019-03-06] VITALS: Ht 165.1 cm; Wt 116.4 kg
[~2019-03-06 10:37] MED LIST changes: +CIPR500T4 PO; +IBUP-1542 PO; +ONDA8TAB14 PO
[2019-03-06] MEDS ORDERED: ONDANSETRON 4 MG INJ IV STA (10:59)
[2019-03-06] MEDS ORDERED: morphine 4 MG/ML VIAL IV STA (10:59)
[2019-03-06] MEDS ORDERED: SOD CHLORIDE 0.9% 1,000 ML IV STA (10:59)
--- NOTE | 2019-03-06 12:59 | ERD ---
ER Documentation Chief Complaint Chief Complaint CHEST PAIN, RT FLANK PAIN, AND DIFFICULTY SEEING SINCE THIS MORNING 0600 HPI 53-year-old female history of hypertension and diabetes with family history of coronary disease presents the emergency room with chest pain. Earlier today while in a car she noted chest pressure that was left-sided with migratory pain to the back. The patient notes the pain is 7 out of 10. She denies any numbness or tingling, no pleuritic pain. She is tearful and does describe some increased social stressors. She denies any lower extremity swelling, pleuritic pain or significant shortness of breath. No recent immobilization or surgeries.. ROS All systems reviewed and are negative except as per history of present illness. Medications Home Meds Reported Medications Fluoxetine Hcl* (Fluoxetine Hcl*) 20 Mg Capsule, 20 MG PO DAILY, CAP 03/06/19 Benazepril Hcl* (Benazepril Hcl*) 10 Mg Tablet, 10 MG PO DAILY, #30 TAB 03/06/19 Aspirin* (Aspirin* EC) 81 Mg Tablet.dr, 81 MG PO DAILY, TAB 03/06/19 Empagliflozin (Jardiance) 25 Mg Tablet, 25 MG PO DAILY, TAB 03/06/19 Metformin Hcl* (Metformin Hcl*) 1,000 Mg Tablet, 1000 MG PO WITH BREAKFAST DINNE, #60 TAB 03/06/19 Glimepiride* (Glimepiride*) 4 Mg Tablet, 4 MG PO WITH BREAKFAST DINNE, TAB 03/06/19 Levothyroxine Sodium* (Levothyroxine Sodium*) 175 Mcg Tablet, 175 MCG PO BEFORE BREAKFAST, #30 TAB 03/06/19 Sitagliptin* (Januvia*) 100 Mg Tablet, 100 MG PO DAILY, #30 TAB 03/06/19 Insulin Glargine,Hum.rec.anlog (Basaglar Kwikpen U-100) 100 Unit/1 Ml Insuln.pen, 40 UNIT SC QHS, EA 03/06/19 Insulin Lispro (Humalog) 100 Unit/1 Ml Cartridge, 5 UNIT SQ TID, EA 03/06/19 Discontinued Reported Medications Simvastatin* (Zocor*) 10 Mg Tablet, 10 MG PO QHS, #30 TAB 06/05/17 Metformin Hcl* (Metformin Hcl*) 500 Mg Tablet, 500 MG PO WITH BREAKFAST DINNE, #60 TAB 06/05/17 Insulin Glargine* (Lantus*) 100 Unit/Ml Soln, 26 UNIT SC QHS, #1 VIAL 06/05/17 Insulin Glulisine (Apidra Solostar) 100 Unit/1 Ml Insuln.pen, 8 UNIT SQ AC MEALS, #1 TUB 06/05/17 Discontinued Scripts Ciprofloxacin Hcl* (Ciprofloxacin Hcl*) 500 Mg Tablet, 500 MG PO BID for UTI for 7 Days, TAB Prov:REUBEN OCONNOR 02/02/19 Ibuprofen* (Motrin*) 600 Mg Tab, 600 MG PO Q6H PRN for PAIN AND OR ELEVATED TEMP, #30 TAB Prov:REUBEN OCONNOR 02/02/19 Ondansetron (Ondansetron Odt) 8 Mg Tab.rapdis, 8 MG PO Q6H PRN for NAUSEA AND/OR VOMITING, #10 TAB Prov:REUBEN OCONNOR 02/02/19 Polyethylene Glycol* (Miralax*) 17 Gm Powd.pack, 17 GM PO DAILY, #7 Prov:SYLVIA MARIE MD 09/09/18 Docusate Sodium* (Colace*) 100 Mg Capsule, 100 MG PO TID, #30 CAP Prov:SYLVIA MARIE MD 09/09/18 Linagliptin (TRADJENTA) 5 Mg Tablet, 5 MG PO DAILY, #30 TAB Prov:JAVON PAULA NP 08/31/18 Levothyroxine Sodium* (Levothyroxine Sodium*) 25 Mcg Tablet, 25 MCG PO DAILY@06, #30 TAB Prov:JAVON PAULA NP 08/31/18 Levothyroxine Sodium* (Levothyroxine Sodium*) 100 Mcg Tablet, 300 MCG PO DAILY@06, #30 TAB Prov:JAVON PAULA NP 08/31/18 Acetamin/Butalbital/Caffeine* (Fioricet*) [id number] Tab, 1 TAB PO Q4H PRN for PAIN LEVEL 1-5, #10 TAB Prov:JAVON PAULA NP 06/06/17 Allergies Allergies: Coded Allergies: No Known Allergy (Unverified , 03/06/19) PMhx/Soc History of Surgery: Yes (cholecystectomy, hernia repair x2) Anesthesia Reaction: No Hx Neurological Disorder: No Hx Respiratory Disorders: No Hx Cardiac Disorders: Yes (chest pain, HTN, HLD) Hx Psychiatric Problems: Yes (anxiety) Hx Miscellaneous Medical Probl: Yes (CHOLECYSTECTOMY) Hx Alcohol Use: No Hx Substance Use: No Hx Tobacco Use: No Smoking Status: Never smoker FmHx Family History: coronary disease Physical Exam Vitals Vital Signs Date Temp Pulse Resp B/P (MAP) Pulse Ox O2 O2 Flow FiO2 Time Delivery Rate 03/06/19 66 20 129/66 98 Room Air 13:57 (87) 03/06/19 Nasal 2 11:24 Cannula 03/06/19 98.8 67 20 190/88 99 10:51 (122) Physical Exam General: Somewhat uncomfortable and tearful Head: Normocephalic, atraumatic. Eyes: Pupils equally reactive, EOM intact ENT: Moist mucous membranes Neck: Supple, no lymphadenopathy Respiratory: Lungs clear bilaterally, no distress Cardiovascular: RRR, no murmurs, rubs, or gallops Abdominal: Soft, non-tender, non-distended, no peritoneal signs : Deferred MSK: No edema, no unilateral swelling, 5/5 strength, no pulse deficits Neurologic: Alert and oriented, moving all extremities, normal speech, no focal weakness, no cerebellar signs Skin: No rash Psych: Normal mood Result Diagram: 03/06/19 1118 03/06/19 1210 Results 24 hrs Laboratory Tests Test 03/06/19 11:18 03/06/19 12:03 03/06/19 12:10 White Blood Count 8.0 10^3/ul Red Blood Count 4.80 10^6/ul Hemoglobin 14.9 g/dl Hematocrit 45.2 % Mean Corpuscular Volume 94.2 fl Mean Corpuscular Hemoglobin 31.0 pg Mean Corpuscular 33.0 g/dl Hemoglobin Concent Red Cell Distribution Width 13.3 % Platelet Count 261 10^3/UL Mean Platelet Volume 10.1 fl Immature Granulocytes % 0.400 % Neutrophils % 50.4 % Lymphocytes % 39.9 % Monocytes % 5.1 % Eosinophils % 3.2 % Basophils % 1.0 % Nucleated Red Blood Cells % 0.0 /100WBC Immature Granulocytes # 0.030 10^3/ul Neutrophils # 4.1 10^3/ul Lymphocytes # 3.2 10^3/ul Monocytes # 0.4 10^3/ul Eosinophils # 0.3 10^3/ul Basophils # 0.1 10^3/ul Nucleated Red Blood Cells # 0.0 10^3/ul Prothrombin Time 12.3 Sec Prothrombin Time Ratio 1.0 INR International Normalized Ratio 0.90 Activated Partial Thromboplast 26.1 Sec Time Sodium Level 143 mmol/L Potassium Level 4.0 mmol/L Chloride Level 110 mmol/L Carbon Dioxide Level 27 mmol/L Anion Gap 6 Blood Urea Nitrogen 12 mg/dl Creatinine 0.68 mg/dl Est Glomerular Filtrat Rate mL/min > 60 mL/min Glucose Level 151 mg/dl Calcium Level 9.1 mg/dl Troponin I < 0.012 ng/ml B-Type Natriuretic Peptide 56 PG/ML Current Medications Medications Dose Sig/Josephine Start Time Status Last (Trade) Ordered Route PRN Stop Time Admin Dose Reason Admin Sodium 1,000 ml @ Q1H STAT 03/06/19 DC 03/06/19 Chloride 1,000 mls/hr IV 10:59 03/06/19 11:35 11:58 Morphine 4 mg ONCE STAT 03/06/19 DC 03/06/19 Sulfate IV 10:59 03/06/19 11:35 (morphine) 11:01 Ondansetron 4 mg ONCE STAT 03/06/19 DC 03/06/19 HCl (Zofran IV 10:59 03/06/19 11:35 Inj) 11:01 IV Flush 10 ml STK-MED 03/06/19 DC 03/06/19 (NS 10 ml) ONCE .ROUTE 13:09 03/06/19 13:46 13:10 Sodium 100 ml @ ud STK-MED 03/06/19 DC 03/06/19 Chloride ONCE .ROUTE 13:09 03/06/19 13:46 13:10 Iohexol 100 ml @ ud STK-MED 03/06/19 DC 03/06/19 ONCE .ROUTE 13:09 03/06/19 13:47 13:10 0.5 mg ONCE STAT 03/06/19 DC Hydromorphone IV 14:02 03/06/19 HCl 14:03 (Dilaudid) Procedures/MDM EKG, MONITORS, & DIAGNOSTIC IMAGING: EKG: I reviewed and interpreted a 12-lead EKG. Rhythm: Normal sinus rhythm ST Changes: No contiguous ST segment elevations T waves: No contiguous T wave inversions Impression: [No evidence of acute cardiac ischemia] Repeat EKG: EKG: I reviewed and interpreted a 12-lead EKG. Rhythm: Normal sinus rhythm ST Changes: No contiguous ST segment elevations T waves: No contiguous T wave inversions Impression: [No evidence of acute cardiac ischemia] Chest x-ray: I reviewed and interpreted a 1 view of the chest Mediastinum: No enlargement Cardiac silhouette: No cardiomegaly Airspace: Clear lung almaraz bilaterally without evidence of pneumothorax Bones: No evidence of fracture CTA CAP: IMPRESSION: 1. Unremarkable CT angiogram of the chest, abdomen, and pelvis. No evidence of dissection. 2. Diverticulosis. 3. Status post cholecystectomy. 4. Small fat-containing left inguinal hernia. 5. Persistent area of decreased attenuation in the enlarged right upper pole renal medullary space. Some considerations include calyceal diverticulum or renard al cyst. Follow-up to ensure stability is recommended. 5. Unchanged triangular shaped fluid collection is again noted in the midline subcutaneous soft tissues at the level of the umbilicus, measuring 3.2 x 1.5 x 6.6 cm. May represent small seroma or abscess. RPTAT: TAYLOR PROCEDURES: [None] LAB INTERPRETATION: * Neg trop MEDICAL DECISION MAKING: The patient's history, physical exam and clinical presentation is concerning for possible cardiogenic etiology and acute coronary syndrome. The patient does have significant family history and while she is only 53 years old she is in a moderate risk category that warrants inpatient hospitalization and further workup. Additionally the patient has migratory pain with elevated blood pressure raising the concern for possible dissection. While there is a lower pretest probability I do believe the patient will benefit from CTA of chest abdomen and pelvis to rule out this emergent process. Based on the patient's clinical exam and history and risk factors, I have a much lower clinical concern for pulmonary embolism, pneumothorax, pneumonia, cardiac tamponade HEART Score: 5 MACE Rate: 16.6% Shared Decision Making: We had a conversation regarding risk stratification, MACE rate, and the risks, benefits, alternatives of disposition planning o ptions. Disposition planning: Given risk profile would strongly recommend hospitalization ER COURSE: * Patient given pain control medication. Aspirin withheld until negative CT imaging * Aspirin given. * CT with unclear soft tissue abscess versus seroma, patient has no focal tenderness in this area. Outpatient follow-up appropriate. * No acute evidence of acute vascular process. CONSULTATION: [None] DISPOSITION PLAN: Telemetry admission for management of chest pain to rule out acute coronary s yndrome, serial enzymes, risk stratification and consideration of provocative testing CONSULTATION: Accepting care team and consultations: I discussed the current laboratory data, diagnostic imaging and emergency care provided. Admitting team: Dr. Wallace Admitting team indication: Insurance directed Departure Diagnosis: Primary Impression: Chest pain Chest pain type: unspecified Qualified Codes: R07.9 - Chest pain, unspecified Additional Impressions: Hypertensive urgency Back pain Back pain location: low back pain Chronicity: acute Back pain laterality: bilateral Sciatica presence: without sciatica Qualified Codes: M54.5 - Low back pain Condition: Stable JOHN MEJIA MD Mar 06, 2019 12:59
[2019-03-06] MEDS ORDERED: INSU100C SQ (13:08)
[2019-03-06] MEDS ORDERED: IOHEXOL 100 ML ONE (13:09)
[2019-03-06] MEDS ORDERED: SOD CHLORIDE 0.9% 100 ML ONE (13:09)
[2019-03-06] MEDS ORDERED: SITA100T11 PO (13:09)
[2019-03-06] MEDS ORDERED: INSU100I33 SC (13:09)
[2019-03-06] MEDS ORDERED: LEVO175T6 PO (13:09)
[2019-03-06] MEDS ORDERED: METF100010 PO (13:10)
[2019-03-06] MEDS ORDERED: GLIM4TAB PO (13:10)
[2019-03-06] MEDS ORDERED: EMPA25TA PO (13:10)
[2019-03-06] MEDS ORDERED: BENA10TA4 PO (13:11)
[2019-03-06] MEDS ORDERED: FLUO20CA22 PO (13:11)
[2019-03-06] MEDS ORDERED: ASPI-817 PO (13:11)
[2019-03-06] MEDS ORDERED: HYDROmorphONE 0.5 MG/0.5 ML SYG IV STA (14:02)
[2019-03-06] MEDS ORDERED: ASPIRIN 81 MG TAB ONE (14:12)
[2019-03-06] MEDS ORDERED: NACL 0.9% 3 ML SYG IV SCH (14:30)
[2019-03-06] MEDS ORDERED: ASPIRIN 81 MG TAB PO ONE (14:30)
[2019-03-06] MEDS ORDERED: hydrALAzine 20 MG INJ IV PRN (14:30)
[2019-03-06] MEDS ORDERED: ONDANSETRON 4 MG INJ IV PRN ×2 (14:30)
[2019-03-06] MEDS ORDERED: ACETAMINOPHEN 325 MG TAB PO PRN ×2 (14:30)
[2019-03-06] MEDS ORDERED: NITROGLYCERIN (SL) 0.4 MG TAB SL PRN (14:30)
--- NOTE | 2019-03-06 14:55 | HP ---
Date/Time of Note Date/Time of Note DATE: 03/06/19 TIME: 14:55 Assessment/Plan VTE Prophylaxis Pharmacological prophylaxis: other Lines/Catheters IV Catheter Type (from Nrsg): Saline Lock Assessment/Plan Hospital Course Patient is a female past medical history significant for hypertension, diabetes days, obesity and umbilical surgery in the past who presents to [facility] for new onset chest pain that radiated to the back as well as her left arm. Patient stated that she woke up at 6 AM with this new pain and however right now the pain has substantially improved. Patient states that other than that she has many chronic issues including a mild pain at her surgical site in her umbilicus as well as chronic neuropathy that is worse in her left leg. Patient is tearful at bedside as her was mad at her but otherwise has no other complaints. Patient denies nausea, vomiting, severe abdominal pain, new leg pain Patient does have a history of umbilical hernia surgery as well as gallbladder removal. Objective Physical exam General: Patient is laying in bed and answers questions appropriately Mentation: Patient is alert and oriented 4, Head: Normocephalic atraumatic Eyes: EOMI, pupils reactive to light Neck: Supple, nontender, midline Respiratory: Clear to auscultation bilaterally Cardiovascular: regular rate, no obvious murmurs Gastrointestinal: Mild tenderness to palpation in the umbilicus at previous surgical site with no severe tenderness or rigid bowel or erythema., bowel sounds heard. Neurological: Moves all extremities spontaneously Skin: No new skin lesions Assessment and plan Chest pain -CTA ruled out dissection -Due to risk factors will admit, continue trending troponins -Aspirin -Statin -Cardiology has been consulted -Echo Umbilical seroma versus abscess -Patient has had this for what appears to be quite some time, patient unable to tell me exactly when her surgery was or when her who performed the surgery however it does bother her -We will attempt to drain via IR once chest pain is rule out -Very unlikely abscess as this has been present for at the very least 8 months., Likely seroma Hypertension -Continue home meds Diabetes mellitus -Insulin while in house Hypothyroidism -Continue home meds -Mood disorder -Continue home meds Questionable blurry vision on ER note from nurse -Patient does not have any complaints of blurry vision at this time, Flank pain -Patient states this is more of a chronic issue Disposition -We will continue to rule out chest pain, will likely plan to aspirate fluid collection once chest pain is ruled out Result Diagram: 03/06/19 1118 03/06/19 1210 Results 24hrs Laboratory Tests Test 03/06/19 11:18 03/06/19 12:03 03/06/19 12:10 White Blood Count 8.0 Red Blood Count 4.80 Hemoglobin 14.9 Hematocrit 45.2 Mean Corpuscular Volume 94.2 Mean Corpuscular Hemoglobin 31.0 Mean Corpuscular Hemoglobin Concent 33.0 Red Cell Distribution Width 13.3 Platelet Count 261 Mean Platelet Volume 10.1 Immature Granulocytes % 0.400 Neutrophils % 50.4 Lymphocytes % 39.9 Monocytes % 5.1 Eosinophils % 3.2 Basophils % 1.0 Nucleated Red Blood Cells % 0.0 Immature Granulocytes # 0.030 Neutrophils # 4.1 Lymphocytes # 3.2 H Monocytes # 0.4 Eosinophils # 0.3 Basophils # 0.1 Nucleated Red Blood Cells # 0.0 Prothrombin Time 12.3 Prothrombin Time Ratio 1.0 INR International Normalized Ratio 0.90 Activated Partial Thromboplast Time 26.1 Sodium Level 143 Potassium Level 4.0 Chloride Level 110 Carbon Dioxide Level 27 Anion Gap 6 Blood Urea Nitrogen 12 Creatinine 0.68 Est Glomerular Filtrat Rate mL/min > 60 Glucose Level 151 Calcium Level 9.1 Troponin I < 0.012 B-Type Natriuretic Peptide 56 HPI/ROS Admit Date/Time Admit Date/Time PMH/Family/Social Past Medical History Medications Current Medications IV Flush (NS 3 ml) 3 ml PER PROTOCOL IV ; Start 03/06/19 at 14:30 Ondansetron HCl (Zofran Inj) 4 mg Q6H PRN IV NAUSEA/VOMITING; Start 03/06/19 at 14:30 Nitroglycerin (Nitroglycerin (Sl Tab) 0.4 Mg) 1 tab Q5M PRN SL .CHEST PAIN; Start 03/06/19 at 14:30 Acetaminophen (Tylenol Tab) 650 mg Q6H PRN PO .PAIN 1-3 OR TEMP; Start 03/06/19 at 14:30 Acetaminophen/ Hydrocodone Bitart ([place] (5/325)) 1 tab Q6H PRN PO .PAIN 4-6; Start 03/06/19 at 14:30 Morphine Sulfate (morphine) 2 mg Q4H PRN IV .PAIN 7-10; Start 03/06/19 at 14:30 Aspirin (Aspirin) 81 mg DAILY PO ; Start 03/07/19 at 09:00 Atorvastatin Calcium (Lipitor) 80 mg HS PO ; Start 03/06/19 at 21:00 Benazepril HCl (Lotensin) 10 mg DAILY PO ; Start 03/07/19 at 09:00 Fluoxetine HCl (Prozac) 20 mg DAILY PO ; Start 03/07/19 at 09:00 Levothyroxine Sodium (Synthroid) 175 mcg BEFORE BREAKFAST PO ; Start 03/07/19 at 07:00 Insulin Glargine (Lantus) 40 units DAILY@2000 SC ; Start 03/06/19 at 20:00 Diagnostic Test (Pha) (Accu-Chek) 1 ea 02 XX ; Start 03/07/19 at 02:00 Insulin Aspart (Novolog Insulin Pen) 6 unit WITH MEALS SC ; Start 03/06/19 at 18:00 Insulin Aspart (Novolog Insulin Pen) NOVOLOG *MILD* ALGORITHM WITH MEALS BEDTIME SC ; Start 03/06/19 at 18:00 Hydralazine HCl (Apresoline) 10 mg Q4H PRN IV sbp >160; Start 03/06/19 at 14:30 Miscellaneous Information 1 ea NOTE XX ; Start 03/06/19 at 15:00 Glucose (Glutose) 15 gm Q15M PRN PO DECREASED GLUCOSE; Start 03/06/19 at 15:00 Glucose (Glutose) 22.5 gm Q15M PRN PO DECREASED GLUCOSE; Start 03/06/19 at 15:00 Dextrose (D50w Syringe) 25 ml Q15M PRN IV DECREASED GLUCOSE; Start 03/06/19 at 15:00 Dextrose (D50w Syringe) 50 ml Q15M PRN IV DECREASED GLUCOSE; Start 03/06/19 at 15:00 Glucagon (Glucagen) 1 mg Q15M PRN IM DECREASED GLUCOSE; Start 03/06/19 at 15:00 Glucose (Glutose) 15 gm Q15M PRN BUCCAL DECREASED GLUCOSE; Start 03/06/19 at 15:00 Coded Allergies: No Known Allergy (Unverified , 03/06/19) Past Surgical History Past Surgical Hx: cholecystectomy, other Family History Significant Family History: heart disease, cancer, diabetes, hypertension, other Social History Smoking Status: Never smoker Exam/Review of Systems Vital Signs Vitals Vital Signs Date Temp Pulse Resp B/P (MAP) Pulse Ox O2 O2 Flow FiO2 Time Delivery Rate 03/06/19 98.1 65 20 123/73 98 Room Air 14:13 (90) 03/06/19 2 11:24 SYLVIA LUTZ Mar 06, 2019 14:55
[2019-03-06] MEDS ORDERED: GLUCAGON 1 MG INJ IM PRN (15:00)
[2019-03-06] MEDS ORDERED: GLUCOSE GEL 15 GRAM TUBE PO PRN ×2 (15:00)
[2019-03-06] MEDS ORDERED: DEXTROSE 50% 50 ML SYRINGE IV PRN ×2 (15:00)
[2019-03-06] MEDS ORDERED: GLUCOSE GEL 15 GRAM TUBE BUCCAL PRN (15:00)
[2019-03-06 16:01] VITALS: PULSE 64
[2019-03-06 17:20] VITALS: BP 152/73; PULSE 58; RESP 20
[2019-03-06] MEDS: INSULIN ASPART [NOVOLOG] 3 ML PEN SC SCH ×3 (17:37→23:43)
[2019-03-06] MEDS: HYDROCODONE/APAP (5/325) TAB PO PRN (17:38)
[2019-03-06 18:57] VITALS: Ht 165.1 cm; Wt 116.4 kg
[2019-03-06 20:00] VITALS: BP 131/60; PULSE 55; PULSE 57; RESP 18
[2019-03-06] MEDS ORDERED: INSULIN GLARGINE [LANTus] (100 UNITS/ML) SYG SC SCH (20:00)
[2019-03-06] MEDS: ATORVASTATIN 80 MG TAB PO SCH (22:05)
[2019-03-06] MEDS: morphine 2 MG INJ IV PRN (22:06)
[2019-03-06] MEDS: ACCU-CHEK XX SCH (23:43)
[2019-03-07] VITALS (10 sets, daily range): BP systolic 108–131; BP diastolic 58–78; PULSE 53–65; RESP 16–20
[2019-03-07] MEDS: morphine 2 MG INJ IV PRN ×3 (04:37→21:00)
[2019-03-07] MEDS: FLUOXETINE 20 MG CAP PO SCH (08:05)
[2019-03-07] MEDS: LEVOTHYROXINE 175 MCG TAB PO SCH (08:06)
[2019-03-07] MEDS: HYDROCODONE/APAP (5/325) TAB PO PRN (08:06)
[2019-03-07] MEDS: ASPIRIN 81 MG TAB PO SCH (08:08)
[2019-03-07] MEDS: BENAZEPRIL 10 MG TAB PO SCH (08:08)
[2019-03-07] MEDS: INSULIN ASPART [NOVOLOG] 3 ML PEN SC SCH ×7 (08:12→21:00)
--- NOTE | 2019-03-07 18:42 | PN ---
Date/Time of Note Date/Time of Note DATE: 03/07/19 TIME: 18:38 Assessment/Plan VTE Prophylaxis Risk score (from Nsg)>0 risk: 2 SCD applied (from Ns): No SCD contraindicated: low risk/ambulating Pharmacological prophylaxis: LMWH Lines/Catheters IV Catheter Type (from Nrs): Saline Lock Assessment/Plan Hospital Course Assessment and plan 1. Chest pain rule out ACS. Troponins EKG normal. CTA -ve for PE/fluid collection or acute thoracic issues. Consider stress test if pain returns. 2. Right upper extremity edema, possible cellulitis. Rule out venous DVT 3. Type 2 diabetes 4. Metabolic syndrome 5. Dyslipidemia 6. Chronic hypertension possibly accelerated hypertension urgency 7. Left inguinal hernia asymptomatic 8. Chronic hypothyroidism, labile, recheck levels 9. Chronic migraines 10. JOSE? 11. Diverticulosis 12. Cholecystectomy status 13. Neuropathy? Carpal tunnel syndrome? Consider outpatient nerve conduction studies 14. History of syncope probably hypothyroid related Subjective no chest pain dyspnea present. No fever diaphoresis. Denies any chest wall injury. Occasional salt indiscretion at home. Decreased fine movements right arm with due to swelling. Upper extremity onset new onset edema Objective: Vital signs stable sinus rhythm Physical exam No pallor adenopathy JVD Regular no murmur rub gallop Clear no tachypnea no rash Bowel sounds diminished nontender nondistended no RG overweight No peripheral edemaHomans. Right upper extremity is edematous mild tender erythema. Result Diagram: 03/07/1952603/07/19526 Results 24hrs Laboratory Tests Test 03/06/19 23:38 03/07/19 00:00 03/07/19 05:27 03/07/19 07:47 Bedside Glucose 176 202 Creatine Kinase 52 Creatine Kinase 0.7 Index Creatinine Kinase MB 0.38 (Mass) Troponin I < 0.012 White Blood Count 5.0 # Red Blood Count 4.44 Hemoglobin 13.9 Hematocrit 42.6 Mean Corpuscular 95.9 Volume Mean Corpuscular 31.3 Hemoglobin Mean Corpuscular 32.6 Hemoglobin Concent Red Cell 13.2 Distribution Width Platelet Count 205 # Mean Platelet Volume 9.6 Immature 0.400 Granulocytes % Neutrophils % 43.4 Lymphocytes % 45.2 Monocytes % 6.2 Eosinophils % 4.0 Basophils % 0.8 Nucleated Red Blood 0.0 Cells % Immature 0.020 Granulocytes # Neutrophils # 2.2 Lymphocytes # 2.3 Monocytes # 0.3 Eosinophils # 0.2 Basophils # 0.0 Nucleated Red Blood 0.0 Cells # Sodium Level 140 Potassium Level 4.0 Chloride Level 108 Carbon Dioxide Level 24 Anion Gap 8 Blood Urea Nitrogen 16 Creatinine 0.66 Est Glomerular > 60 Filtrat Rate mL/min Glucose Level 179 Hemoglobin A1c 8.1 H Calcium Level 9.1 Magnesium Level 1.8 Total Bilirubin 0.6 Direct Bilirubin 0.00 Indirect Bilirubin 0.6 Aspartate Amino 17 Transf (AST/SGOT) Alanine 17 Aminotransferase (AL T/SGPT) Alkaline Phosphatase 67 Total Protein 6.6 Albumin 3.6 Globulin 3.00 Albumin/Globulin 1.20 Ratio Triglycerides Level 262 H Cholesterol Level 211 H LDL Cholesterol, 131 Calculated HDL Cholesterol 28 L Cholesterol/HDL 7.5 Ratio Test 03/07/19 11:46 03/07/19 17:14 Bedside Glucose 158 188 Exam/Review of Systems Exam Vitals Vital Signs Date Temp Pulse Resp B/P (MAP) Pulse Ox O2 O2 Flow FiO2 Time Delivery Rate 03/07/19 53 16:17 03/07/19 98.1 18 131/69 95 Room Air 15:30 (89) 03/06/19 2 11:24 Intake and Output 03/06/19 03/06/19 03/07/19 1515:00 23:00 07:00 IntakeIntake Total 320 ml 360 ml BalanceBalance 320 ml 360 ml Results Results 24hrs Laboratory Tests Test 03/06/19 23:38 03/07/19 00:00 03/07/19 05:27 03/07/19 07:47 Bedside Glucose 176 202 Creatine Kinase 52 Creatine Kinase 0.7 Index Creatinine Kinase MB 0.38 (Mass) Troponin I < 0.012 White Blood Count 5.0 # Red Blood Count 4.44 Hemoglobin 13.9 Hematocrit 42.6 Mean Corpuscular 95.9 Volume Mean Corpuscular 31.3 Hemoglobin Mean Corpuscular 32.6 Hemoglobin Concent Red Cell 13.2 Distribution Width Platelet Count 205 # Mean Platelet Volume 9.6 Immature 0.400 Granulocytes % Neutrophils % 43.4 Lymphocytes % 45.2 Monocytes % 6.2 Eosinophils % 4.0 Basophils % 0.8 Nucleated Red Blood 0.0 Cells % Immature 0.020 Granulocytes # Neutrophils # 2.2 Lymphocytes # 2.3 Monocytes # 0.3 Eosinophils # 0.2 Basophils # 0.0 Nucleated Red Blood 0.0 Cells # Sodium Level 140 Potassium Level 4.0 Chloride Level 108 Carbon Dioxide Level 24 Anion Gap 8 Blood Urea Nitrogen 16 Creatinine 0.66 Est Glomerular > 60 Filtrat Rate mL/min Glucose Level 179 Hemoglobin A1c 8.1 H Calcium Level 9.1 Magnesium Level 1.8 Total Bilirubin 0.6 Direct Bilirubin 0.00 Indirect Bilirubin 0.6 Aspartate Amino 17 Transf (AST/SGOT) Alanine 17 Aminotransferase (AL T/SGPT) Alkaline Phosphatase 67 Total Protein 6.6 Albumin 3.6 Globulin 3.00 Albumin/Globulin 1.20 Ratio Triglycerides Level 262 H Cholesterol Level 211 H LDL Cholesterol, 131 Calculated HDL Cholesterol 28 L Cholesterol/HDL 7.5 Ratio Test 03/07/19 11:46 03/07/19 17:14 Bedside Glucose 158 188 Medications Medication Current Medications IV Flush (NS 3 ml) 3 ml PER PROTOCOL IV ; Start 03/06/19 at 14:30 Ondansetron HCl (Zofran Inj) 4 mg Q6H PRN IV NAUSEA/VOMITING; Start 03/06/19 at 14:30 Nitroglycerin (Nitroglycerin (Sl Tab) 0.4 Mg) 1 tab Q5M PRN SL .CHEST PAIN; Start 03/06/19 at 14:30 Acetaminophen (Tylenol Tab) 650 mg Q6H PRN PO .PAIN 1-3 OR TEMP; Start 03/06/19 at 14:30 Acetaminophen/ Hydrocodone Bitart ([place] (5/325)) 1 tab Q6H PRN PO .PAIN 4-6 Last administered on 03/07/19at 08:06; Admin Dose 1 TAB; Start 03/06/19 at 14:30 Morphine Sulfate (morphine) 2 mg Q4H PRN IV .PAIN 7-10 Last administered on 03/07/19at 11:13; Admin Dose 2 MG; Start 03/06/19 at 14:30 Aspirin (Aspirin) 81 mg DAILY PO Last administered on 03/07/19at 08:08; Admin Dose 81 MG; Start 03/07/19 at 09:00 Atorvastatin Calcium (Lipitor) 80 mg HS PO Last administered on 03/06/19at 22:05; Admin Dose 80 MG; Start 03/06/19 at 21:00 Benazepril HCl (Lotensin) 10 mg DAILY PO Last administered on 03/07/19at 08:08; Admin Dose 10 MG; Start 03/07/19 at 09:00 Fluoxetine HCl (Prozac) 20 mg DAILY PO Last administered on 03/07/19 08:05; Admin Dose 20 MG; Start 03/07/19 at 09:00 Levothyroxine Sodium (Synthroid) 175 mcg BEFORE BREAKFAST PO Last administered on 03/07/19 08:06; Admin Dose 175 MCG; Start 03/07/19 at 07:00 Insulin Glargine (Lantus) 40 units DAILY@2000 SC Last administered on 03/06/19at 23:42; Admin Dose 40 UNITS; Start 03/06/19 at 20:00 Diagnostic Test (Pha) (Accu-Chek) 1 ea 02 XX ; Start 03/07/19 at 02:00 Insulin Aspart (Novolog Insulin Pen) 6 unit WITH MEALS SC Last administered on 03/07/19 17:19; Admin Dose 6 UNIT; Start 03/06/19 at 18:00 Insulin Aspart (Novolog Insulin Pen) NOVOLOG *MILD* ALGORITHM WITH MEALS BEDTIME SC Last administered on 03/07/19at 17:24; Admin Dose 2 UNIT; Start 03/06/19 at 18:00 Hydralazine HCl (Apresoline) 10 mg Q4H PRN IV sbp >160; Start 03/06/19 at 14:30 Miscellaneous Information 1 ea NOTE XX ; Start 03/06/19 at 15:00 Glucose (Glutose) 15 gm Q15M PRN PO DECREASED GLUCOSE; Start 03/06/19 at 15:00 Glucose (Glutose) 22.5 gm Q15M PRN PO DECREASED GLUCOSE; Start 03/06/19 at 15:00 Dextrose (D50w Syringe) 25 ml Q15M PRN IV DECREASED GLUCOSE; Start 03/06/19 at 15:00 Dextrose (D50w Syringe) 50 ml Q15M PRN IV DECREASED GLUCOSE; Start 03/06/19 at 15:00 Glucagon (Glucagen) 1 mg Q15M PRN IM DECREASED GLUCOSE; Start 03/06/19 at 15:00 Glucose (Glutose) 15 gm Q15M PRN BUCCAL DECREASED GLUCOSE; Start 03/06/19 at 15:00 JELENA THOMAS MD Mar 07, 2019 18:42
[2019-03-07] MEDS: ATORVASTATIN 80 MG TAB PO SCH (21:03)
[2019-03-07] MEDS: ENOXAPARIN 40 MG/0.4 ML SYG SC SCH (21:44)
[2019-03-07] MEDS: INSULIN GLARGINE [LANTus] (100 UNITS/ML) SYG SC SCH (21:44)
--- NOTE | 2019-03-07 23:42 | RADRPT ---
Echocardiogram Report Patient Name: Jack JANSENtient ID: [id number] : 1965 (53y 8m)Study Date: 03/07/2019 8:22:43 AM Gender: FAccession #: [id number] Tech: JoanaCrow Moss [facility] [[email or web address]] Location: [facility] Ref.Physician: SYLVIA LUTZ Height(Cm): BSA: Weight(Kg): Quality: AdequateAccount #: Procedures: Echocardiographic Report: Transthoracic echocardiogram with complete 2D, M-Mode, and doppler examination. Indications: Chest Pain. Measurements: 2D/M Mode Doppler Measurement Value Normal Range Measurement Value Normal Range LVIDd 2D 4.1 [ 3.8 - 5.2 ] cm AV Peak Kraig 1.4 [ 100.0 - 170.0 ] cm/sec LVIDs 2D 2.0 [ 2.2 - 3.5 ] cm AV Peak PG 8.0 [ 2.0 - 9.0 ] mmHg LVPWd 2D 1.2 [ 0.6 - 0.9 ] cm LVOT Peak Kraig 1.3 [ 70.0 - 110.0 ] cm/sec IVSd 2D 1.3 [ 0.6 - 0.9 ] cm LVOT Peak PG 7.0 [ 2.0 - 6.0 ] mmHg AoR Diam 2D 3.0 [ 2.3 - 3.1 ] cm MV E Peak Kraig 0.7 [ 60.0 - 130.0 ] cm/sec EDV 2D 73.8 [ 46.0 - 106.0 ] ml MV A Peak Kraig 0.8 [ 100.0 - 120.0 ] cm/sec ESV 2D 12.6 [ 14.0 - 42.0 ] ml MV E/A 0.8 [ 0.8 - 1.5 ] ratio EF 2D 82.9 [ 54.0 - 74.0 ] percent MV Decel Time 194 [ 104 - 258 ] msec LA Dimen 2D 3.8 [ 2.7 - 3.8 ] cm Lat E` Kraig 0.1 [ 10.0 - 15.0 ] cm/sec Lateral E/E` 7.2 [ 1.0 - 2.0 ] ratio MV E/A 0.8 [ 0.8 - 1.5 ] ratio TR Peak Kraig 1.8 [ 100.0 - 280.0 ] cm/sec TR Peak PG 13.0 mmHg RVSP 16.0 [ 10.0 - 36.0 ] mmHg RA Pressure 3.0 mmHg Findings: Left Ventricle: Normal left ventricular systolic function. Normal left ventricular cavity size. Normal left ventricular wall thickness. Mild concentric left ventricular hypertrophy. Ejection fraction is visually estimated at 55-60 %. Tissue Doppler/Mitral Doppler indices are consistent with impaired relaxation (Stage I diastolic dysfunction). Right Ventricle: Normal right ventricular size. Normal right ventricular systolic function. Left Atrium: The left atrium is normal in size. Right Atrium: The right atrium is normal in size. Mitral Valve: Mitral valve leaflets appear mildly thickened. Mild mitral annular calcification. Trace mitral regurgitation. Aortic Valve: Normal appearance of the aortic valve. No significant aortic stenosis or insufficiency. Tricuspid Valve: Normal appearance and function of the tricuspid valve with trace physiologic regurgitation. Normal right ventricular systolic pressure. Pulmonic Valve: Normal pulmonic valve appearance. Pericardium: Normal pericardium with no significant pericardial effusion. Aorta: Normal aortic root. IVC: Normal size and normal respiratory collapse consistent with normal right atrial pressure. Conclusions: Normal left ventricular systolic function. Normal left ventricular cavity size. Normal left ventricular wall thickness. Mild concentric left ventricular hypertrophy. Ejection fraction is visually estimated at 55-60 %. Tissue Doppler/Mitral Doppler indices are consistent with impaired relaxation (Stage I diastolic dysfunction). Mitral valve leaflets appear mildly thickened. Mild mitral annular calcification. Trace mitral regurgitation. Normal appearance and function of the tricuspid valve with trace physiologic regurgitation. Normal right ventricular systolic pressure. Electronically Signed By: Stan Vieyra 2019-03-07 23:41:14 PDT
[2019-03-08] VITALS (12 sets, daily range): BP systolic 98–119; BP diastolic 51–63; PULSE 54–68; RESP 17–20
[2019-03-08] MEDS: morphine 2 MG INJ IV PRN ×5 (00:19→20:28)
[2019-03-08] MEDS: ACCU-CHEK XX SCH (02:00)
[2019-03-08] MEDS: LEVOTHYROXINE 175 MCG TAB PO SCH (05:41)
[2019-03-08] MEDS: FLUOXETINE 20 MG CAP PO SCH (08:03)
[2019-03-08] MEDS: ASPIRIN 81 MG TAB PO SCH (08:04)
[2019-03-08] MEDS: BENAZEPRIL 10 MG TAB PO SCH (08:04)
[2019-03-08] MEDS: HYDROCODONE/APAP (5/325) TAB PO PRN (08:05)
[2019-03-08] MEDS: ENOXAPARIN 40 MG/0.4 ML SYG SC SCH (08:10)
[2019-03-08] MEDS: INSULIN ASPART [NOVOLOG] 3 ML PEN SC SCH ×7 (08:14→20:35)
--- NOTE | 2019-03-08 12:51 | PN ---
Date/Time of Note Date/Time of Note DATE: 03/08/19 TIME: 12:48 Assessment/Plan VTE Prophylaxis Risk score (from Nsg)>0 risk: 2 SCD applied (from Ns): No SCD contraindicated: low risk/ambulating Pharmacological prophylaxis: NA/contraindicated Pharm contraindication: surgical contra Lines/Catheters IV Catheter Type (from Nrsg): [place] Assessment/Plan Hospital Course Assessment and plan 1. Chest pain ruled out ACS. Trops/ EKG normal. CTA -ve for PE/effusion or acute thoracic issues. Consider stress test if pain returns. 2. Right upper extremity edema, due to superficial thrombus, stable, DC peripheral IV no need for anticoagulation 3. Type 2 diabetes 4. Metabolic syndrome 5. Dyslipidemia 6. Chr hypertension possibly accelerated hypertension urgency 7. Left inguinal hernia asymptomatic 8. Chronic hypothyroidism, labile, TSH still elevated, adjust therapy. 9. Chronic migraines 10. JOSE? 11. Diverticulosis 12. Cholecystectomy status 13. Neuropathy? Carpal tunnel syndrome? Consider outpatient nerve conduction studies 14. History of syncope probably hypothyroid related 15. Umbilical fluid collection. Patient for IR guided drainage and culture. S: 03/07 no chest pain dyspnea present. No fever diaphoresis. Denies any chest wall injury. Occasional salt indiscretion at home. Decreased fine movements right arm with due to swelling. Upper extremity onset new onset edema 03/08: No distress. Right arm edema improved O: Vital signs stable sinus rhythm Physical exam No pallor JVD Regular no murmur rub gallop Clear no tachypnea or rash Bs dimin nt nd no RRG overweight No peripheral edemaHomans. Rt upper ext with less edema/ erythema. Result Diagram: 03/08/19 0538 03/08/19 0538 Results 24hrs Laboratory Tests Test 03/07/19 17:14 03/07/19 21:02 03/08/19 05:38 03/08/19 07:23 Bedside Glucose 188 147 157 White Blood Count 5.9 Red Blood Count 4.56 Hemoglobin 14.0 Hematocrit 43.1 Mean Corpuscular 94.5 Volume Mean Corpuscular 30.7 Hemoglobin Mean Corpuscular 32.5 Hemoglobin Concent Red Cell 13.3 Distribution Width Platelet Count 223 Mean Platelet Volume 9.4 Immature 0.300 Granulocytes % Neutrophils % 43.2 Lymphocytes % 46.5 Monocytes % 5.2 Eosinophils % 4.0 Basophils % 0.8 Nucleated Red Blood 0.0 Cells % Immature 0.020 Granulocytes # Neutrophils # 2.6 Lymphocytes # 2.8 Monocytes # 0.3 Eosinophils # 0.2 Basophils # 0.1 Nucleated Red Blood 0.0 Cells # Sodium Level 141 Potassium Level 4.5 Chloride Level 102 Carbon Dioxide Level 30 Anion Gap 9 Blood Urea Nitrogen 15 Creatinine 0.70 Est Glomerular > 60 Filtrat Rate mL/min Glucose Level 171 Calcium Level 9.3 Magnesium Level 1.8 Total Bilirubin 0.3 Direct Bilirubin 0.00 Indirect Bilirubin 0.3 Aspartate Amino 13 L Transf (AST/SGOT) Alanine 15 Aminotransferase (AL T/SGPT) Alkaline Phosphatase 62 Troponin I < 0.012 Total Protein 6.7 Albumin 3.9 Globulin 2.80 Albumin/Globulin 1.39 Ratio Lipase 80 Thyroid Stimulating 15.000 H Hormone (TSH) Free Thyroxine 0.83 Total 0.92 L Triiodothyronine Test 03/08/19 11:41 Bedside Glucose 154 Exam/Review of Systems Exam Vitals Vital Signs Date Temp Pulse Resp B/P (MAP) Pulse Ox O2 O2 Flow FiO2 Time Delivery Rate 03/08/19 56 12:12 03/08/19 98.3 20 98/51 (67) 95 Room Air 11:03 03/06/19 2 11:24 Intake and Output 03/07/19 03/07/19 03/08/19 1515:00 23:00 07:00 IntakeIntake Total 1600 ml 1600 ml BalanceBalance 1600 ml 1600 ml Results Results 24hrs Laboratory Tests Test 03/07/19 17:14 03/07/19 21:02 03/08/19 05:38 03/08/19 07:23 Bedside Glucose 188 147 157 White Blood Count 5.9 Red Blood Count 4.56 Hemoglobin 14.0 Hematocrit 43.1 Mean Corpuscular 94.5 Volume Mean Corpuscular 30.7 Hemoglobin Mean Corpuscular 32.5 Hemoglobin Concent Red Cell 13.3 Distribution Width Platelet Count 223 Mean Platelet Volume 9.4 Immature 0.300 Granulocytes % Neutrophils % 43.2 Lymphocytes % 46.5 Monocytes % 5.2 Eosinophils % 4.0 Basophils % 0.8 Nucleated Red Blood 0.0 Cells % Immature 0.020 Granulocytes # Neutrophils # 2.6 Lymphocytes # 2.8 Monocytes # 0.3 Eosinophils # 0.2 Basophils # 0.1 Nucleated Red Blood 0.0 Cells # Sodium Level 141 Potassium Level 4.5 Chloride Level 102 Carbon Dioxide Level 30 Anion Gap 9 Blood Urea Nitrogen 15 Creatinine 0.70 Est Glomerular > 60 Filtrat Rate mL/min Glucose Level 171 Calcium Level 9.3 Magnesium Level 1.8 Total Bilirubin 0.3 Direct Bilirubin 0.00 Indirect Bilirubin 0.3 Aspartate Amino 13 L Transf (AST/SGOT) Alanine 15 Aminotransferase (AL T/SGPT) Alkaline Phosphatase 62 Troponin I < 0.012 Total Protein 6.7 Albumin 3.9 Globulin 2.80 Albumin/Globulin 1.39 Ratio Lipase 80 Thyroid Stimulating 15.000 H Hormone (TSH) Free Thyroxine 0.83 Total 0.92 L Triiodothyronine Test 03/08/19 11:41 Bedside Glucose 154 Medications Medication Current Medications IV Flush (NS 3 ml) 3 ml PER PROTOCOL IV ; Start 03/06/19 at 14:30 Ondansetron HCl (Zofran Inj) 4 mg Q6H PRN IV NAUSEA/VOMITING; Start 03/06/19 at 14:30 Nitroglycerin (Nitroglycerin (Sl Tab) 0.4 Mg) 1 tab Q5M PRN SL .CHEST PAIN; Start 03/06/19 at 14:30 Acetaminophen (Tylenol Tab) 650 mg Q6H PRN PO .PAIN 1-3 OR TEMP; Start 03/06/19 at 14:30 Acetaminophen/ Hydrocodone Bitart ([place] (5/325)) 1 tab Q6H PRN PO .PAIN 4-6 Last administered on 03/08/19at 08:05; Admin Dose 1 TAB; Start 03/06/19 at 14:30 Morphine Sulfate (morphine) 2 mg Q4H PRN IV .PAIN 7-10 Last administered on 03/08/19at 10:24; Admin Dose 2 MG; Start 03/06/19 at 14:30 Aspirin (Aspirin) 81 mg DAILY PO Last administered on 03/08/19at 08:04; Admin Dose 81 MG; Start 03/07/19 at 09:00 Atorvastatin Calcium (Lipitor) 80 mg HS PO Last administered on 03/07/19at 21:03; Admin Dose 80 MG; Start 03/06/19 at 21:00 Benazepril HCl (Lotensin) 10 mg DAILY PO Last administered on 03/08/19at 08:04; Admin Dose 10 MG; Start 03/07/19 at 09:00 Fluoxetine HCl (Prozac) 20 mg DAILY PO Last administered on 03/08/19at 08:03; Admin Dose 20 MG; Start 03/07/19 at 09:00 Levothyroxine Sodium (Synthroid) 175 mcg BEFORE BREAKFAST PO Last administered on 03/08/19at 05:41; Admin Dose 175 MCG; Start 03/07/19 at 07:00 Diagnostic Test (Pha) (Accu-Chek) 1 ea 02 XX ; Start 03/07/19 at 02:00 Insulin Aspart (Novolog Insulin Pen) NOVOLOG *MILD* ALGORITHM WITH MEALS BEDTIME SC Last administered on 03/08/19at 11:47; Admin Dose 1 UNIT; Start 03/06/19 at 18:00 Hydralazine HCl (Apresoline) 10 mg Q4H PRN IV sbp >160; Start 03/06/19 at 14:30 Miscellaneous Information 1 ea NOTE XX ; Start 03/06/19 at 15:00 Glucose (Glutose) 15 gm Q15M PRN PO DECREASED GLUCOSE; Start 03/06/19 at 15:00 Glucose (Glutose) 22.5 gm Q15M PRN PO DECREASED GLUCOSE; Start 03/06/19 at 15:00 Dextrose (D50w Syringe) 25 ml Q15M PRN IV DECREASED GLUCOSE; Start 03/06/19 at 15:00 Dextrose (D50w Syringe) 50 ml Q15M PRN IV DECREASED GLUCOSE; Start 03/06/19 at 15:00 Glucagon (Glucagen) 1 mg Q15M PRN IM DECREASED GLUCOSE; Start 03/06/19 at 15:00 Glucose (Glutose) 15 gm Q15M PRN BUCCAL DECREASED GLUCOSE; Start 03/06/19 at 15:00 Insulin Aspart (Novolog Insulin Pen) 8 unit WITH MEALS SC Last administered on 03/08/19at 11:48; Admin Dose 8 UNIT; Start 03/08/19 at 08:00 Insulin Glargine (Lantus) 20 units DAILY@2000 SC Last administered on 03/07/19at 21:44; Admin Dose 20 UNITS; Start 03/07/19 at 20:00 Enoxaparin Sodium (Lovenox) 40 mg DAILY SC Last administered on 03/08/19at 08:10; Admin Dose 40 MG; Start 03/07/19 at 19:00 JELENA THOMAS MD Mar 08, 2019 12:51
[2019-03-08] MEDS ORDERED: LIDOCAINE 1% (MPF) 5 ML VIAL ONE (14:17)
--- NOTE | 2019-03-08 17:39 | HPN ---
Date/Time of Note Date/Time of Note DATE: 03/08/19 TIME: 17:39 Interval H&P Admission Note Pt. seen H&P reviewed: No system changes VERONIKA FLORES MD Mar 08, 2019 17:39
[2019-03-08] MEDS: ATORVASTATIN 80 MG TAB PO SCH (20:28)
[2019-03-08] MEDS: INSULIN GLARGINE [LANTus] (100 UNITS/ML) SYG SC SCH (20:35)
[2019-03-09] VITALS (9 sets, daily range): BP systolic 105–121; BP diastolic 53–69; PULSE 54–70; RESP 17–20
[2019-03-09] MEDS: morphine 2 MG INJ IV PRN ×3 (01:22→11:04)
[2019-03-09] MEDS: ACCU-CHEK XX SCH (02:00)
[2019-03-09] MEDS: LEVOTHYROXINE 175 MCG TAB PO SCH (05:34)
[2019-03-09] MEDS: INSULIN ASPART [NOVOLOG] 3 ML PEN SC SCH ×6 (08:14→17:20)
[2019-03-09] MEDS: HYDROCODONE/APAP (5/325) TAB PO PRN (09:06)
[2019-03-09] MEDS: FLUOXETINE 20 MG CAP PO SCH (09:06)
[2019-03-09] MEDS: ASPIRIN 81 MG TAB PO SCH (09:07)
[2019-03-09] MEDS: BENAZEPRIL 10 MG TAB PO SCH (09:07)
--- NOTE | 2019-03-09 12:15 | DS ---
Date/Time of Note Date/Time of Note DATE: 03/09/19 TIME: 12:08 Discharge Summary Admission/Discharge Info Admit Date/Time Mar 07, 2019 at 18:49 Discharge Date/Time Patient Condition: Stable Procedures CTA chest IMPRESSION: 1. Unremarkable CT angiogram of the chest, abdomen, and pelvis. No evidence of dissection. 2. Diverticulosis. 3. Status post cholecystectomy. 4. Small fat-containing left inguinal hernia. 5. Persistent area of decreased attenuation in the enlarged right upper pole renal medullary space. Some considerations include calyceal diverticulum or renal cyst. Follow-up to ensure stability is recommended. 5. Unchanged triangular shaped fluid collection is again noted in the midline subcutaneous soft tissues at the level of the umbilicus, measuring 3.2 x 1.5 x 6.6 cm. May represent small seroma or abscess. Chest x-ray: No acute no acute process Venous ultrasound right upper extremity: No DVT. Positive superficial clot associated with IV CT guided abdominal wall fluid collection aspiration CLINICAL INDICATION: Abdominal wall fluid collection. TECHNIQUE: Informed consent was obtained. The procedure, risks, benefits, complications and alternatives were explained to the patient or the patient's family. Risks including bleeding and infection were explained. The patient or the patient's family understood and was willing to proceed. A procedural pause was performed. The patient's name, date of , and procedure to be performed were verified. One or more of the following dose reduction techniques were used: Automated exposure control, adjustment of the mA and/or kV according to patient size, use of iterative reconstruction technique. DICOM images are available. Using local anesthetic, sterile technique and CT guidance, a 19-gauge Yueh nee dle was advanced into the fluid collection in the anterior abdominal wall midline. CT scan was performed confirming position. Serous fluid fluid was also aspirated confirming position. The needle from the Yueh catheter was removed, leaving the Yueh catheter in place within the fluid collection. Approximately 10 ml of serous fluid was aspirated. The catheter was removed. Additional stenting was performed. COMPARISON: CT scan of the chest, abdomen, and pelvis dated 03/06/2019 FINDINGS: Initial images demonstrate the catheter in satisfactory position within the fluid collection. Subsequent images demonstrate removal of all of the fluid from the collection. Specimens: Fluid from the fluid collection. Blood loss: 1 ml. Complications: None. Stitch Wheeler: None. Anesthesia: Local and moderate sedation. Graft/Implant: None. IMPRESSION: 1. Successful CT guided abdominal wall fluid collection aspiration. .Abelardo Worrell MD, M Hx of Present Illness Evaluated managed for typical chest pain Hospital Course Hospitalist coverage/hospital course -Already managed for atypical chest pain. No ACS by enzymes EKG symptoms. CTA chest negative. I think this is musculoskeletal. Patient stable and fit for discharge. She has physical therapy and we will asked him to concentrate on the back/core exercises. TSH still elevated at 15. Patient last changed her dose 2 months ago. She states she takes 350 mcg daily. I will increase to 2 mcg daily at this time. She needs to have a TSH checked in 2-4 weeks. IR did drain her periumbilical fluid collection: Appears serous. Therefore I will not start her on any antibiotics. May follow-up with cultures at [phone] 1. Chest pain ruled out ACS. Trops/ EKG normal. CTA -ve for PE/effusion or acute thoracic issues. Consider stress test if pain returns. 2. Right upper extremity edema, due to superficial thrombus, stable, DC peripheral IV no need for anticoagulation 3. Type 2 diabetes 4. Metabolic syndrome, obesity, needs weight management assistance. 5. Dyslipidemia 6. Chr hypertension possibly accelerated hypertension urgency 7. Left inguinal hernia asymptomatic 8. Chronic hypothyroidism, labile, TSH still elevated, adjust therapy. 9. Chronic migraines 10. JOSE? Consider outpatient testing 11. Diverticulosis 12. Cholecystectomy status 13. Neuropathy? Carpal tunnel syndrome? Consider outpatient nerve conduction studies 14. History of syncope probably hypothyroid related 15. Umbilical fluid collection. Patient for IR guided drainage and culture. 16. Chr rt pyelonephritis? possible dual collecting system. stable over the last year. However may need outpatient urology at some point to see if symptoms are concerning S: 03/07 no chest pain dyspnea present. No fever diaphoresis. Denies any chest wall injury. Occasional salt indiscretion at home. Decreased fine movements right arm with due to swelling. Upper extremity onset new onset edema 03/08: No distress. Right arm edema improved Home Meds Reported Medications Fluoxetine Hcl* (Fluoxetine Hcl*) 20 Mg Capsule, 20 MG PO DAILY, CAP 03/06/19 Benazepril Hcl* (Benazepril Hcl*) 10 Mg Tablet, 10 MG PO DAILY, #30 TAB 03/06/19 Aspirin* (Aspirin* EC) 81 Mg Tablet.dr, 81 MG PO DAILY, TAB 03/06/19 Empagliflozin (Jardiance) 25 Mg Tablet, 25 MG PO DAILY, TAB 03/06/19 Metformin Hcl* (Metformin Hcl*) 1,000 Mg Tablet, 1000 MG PO WITH BREAKFAST DINNE, #60 TAB 03/06/19 Glimepiride* (Glimepiride*) 4 Mg Tablet, 4 MG PO WITH BREAKFAST DINNE, TAB 03/06/19 Levothyroxine Sodium* (Levothyroxine Sodium*) 175 Mcg Tablet, 175 MCG PO BEFORE BREAKFAST, #30 TAB 03/06/19 Sitagliptin* (Januvia*) 100 Mg Tablet, 100 MG PO DAILY, #30 TAB 03/06/19 Insulin Glargine,Hum.rec.anlog (Basaglar Kwikpen U-100) 100 Unit/1 Ml Insul n.pen, 40 UNIT SC QHS, EA 03/06/19 Insulin Lispro (Humalog) 100 Unit/1 Ml Cartridge, 5 UNIT SQ TID, EA 03/06/19 Discontinued Reported Medications Simvastatin* (Zocor*) 10 Mg Tablet, 10 MG PO QHS, #30 TAB 06/05/17 Metformin Hcl* (Metformin Hcl*) 500 Mg Tablet, 500 MG PO WITH BREAKFAST DINNE, #60 TAB 06/05/17 Insulin Glargine* (Lantus*) 100 Unit/Ml Soln, 26 UNIT SC QHS, #1 VIAL 06/05/17 Insulin Glulisine (Apidra Solostar) 100 Unit/1 Ml Insuln.pen, 8 UNIT SQ AC MEALS, #1 TUB 06/05/17 Discontinued Scripts Ciprofloxacin Hcl* (Ciprofloxacin Hcl*) 500 Mg Tablet, 500 MG PO BID for UTI for 7 Days, TAB Prov:REUBEN OCONNOR 02/02/19 Ibuprofen* (Motrin*) 600 Mg Tab, 600 MG PO Q6H PRN for PAIN AND OR ELEVATED TEMP, #30 TAB Prov:REUBEN OCONNOR 02/02/19 Ondansetron (Ondansetron Odt) 8 Mg Tab.rapdis, 8 MG PO Q6H PRN for NAUSEA AND/OR VOMITING, #10 TAB Prov:REUBEN OCONNOR 02/02/19 Polyethylene Glycol* (Miralax*) 17 Gm Powd.pack, 17 GM PO DAILY, #7 Prov:SYLVIA MARIE MD 09/09/18 Docusate Sodium* (Colace*) 100 Mg Capsule, 100 MG PO TID, #30 CAP Prov:SYLVIA MARIE MD 09/09/18 Linagliptin (TRADJENTA) 5 Mg Tablet, 5 MG PO DAILY, #30 TAB Prov:JAVON PAULA NP 08/31/18 Levothyroxine Sodium* (Levothyroxine Sodium*) 25 Mcg Tablet, 25 MCG PO DAILY@06, #30 TAB Prov:JAVON PAULA NP 08/31/18 Levothyroxine Sodium* (Levothyroxine Sodium*) 100 Mcg Tablet, 300 MCG PO DAILY@06, #30 TAB Prov:JAVON PAULA NP 08/31/18 Acetamin/Butalbital/Caffeine* (Fioricet*) [id number] Tab, 1 TAB PO Q4H PRN for PAIN LEVEL 1-5, #10 TAB Prov:JAVON PAULA NP 06/06/17 Primary Care Provider Brandon Jaeger Time spent on discharge: > 30 minutes Pending Labs Laboratory Tests Test 03/08/19 17:10 03/08/19 20:21 03/09/19 02:29 03/09/19 08:03 Bedside 156 206 157 147 Glucose mg/dL (70-220) mg/dL (70-220) mg/dL (70-220) mg/dL (70-220) JELENA THOMAS MD Mar 09, 2019 12:15
--- NOTE | 2019-03-09 12:16 | PDOCDIS ---
Discharge Instructions CONDITION [id number] Patient Condition: [id number] Stable HOME CARE INSTRUCTIONS: [id number] Diet Instructions: [id number] 4Bd Activity Restrictions: [id number] Slowly Increase Activity Rest between Activity Avoid heavy lifting FOLLOW UP/APPOINTMENTS Follow-up Plan Appointment primary 1 week continue outpatient physical therapy JELENA THOMAS MD Mar 09, 2019 12:16
[2019-03-09] MEDS ORDERED: LEVO200T6 PO (12:20)
[2019-03-09] MEDS ORDERED: HYDR-3601 PO (12:20)
[2019-03-09] MEDS ORDERED: ACET325T33 PO (12:20)
[2019-03-09] MEDS ORDERED: ENOXAPARIN 40 MG/0.4 ML SYG SC SCH (21:00)
== END 2019-03-09 18:11 | disposition home or self-care (01) | DRG 988 ==
LOC: E/R 10:37 → SUATTDRO 14:10 → 6WM 14:12 → OBSVTOIN 03-07 18:49
PROVIDERS: ADMIT Internal Medicine; ATTEND Internal Medicine
PROC: 0W9F3ZX Drainage of Abdominal Wall, Percutaneous Approach, Diagnostic (ICD-10-PCS; principal; 2019-03-08)
DX: R07.89 Other chest pain (principal); Z68.41 Body mass index [BMI] 40.0-44.9, adult; I82.611 Acute embolism and thrombosis of superficial veins of right upper extremity; E88.81 Metabolic syndrome and other insulin resistance; I25.10 Atherosclerotic heart disease of native coronary artery without angina pectoris; I10 Essential (primary) hypertension; E11.9 Type 2 diabetes mellitus without complications; E78.5 Hyperlipidemia, unspecified; E03.9 Hypothyroidism, unspecified; F39 Unspecified mood [affective] disorder; E66.9 Obesity, unspecified; I16.0 Hypertensive urgency; K57.30 Diverticulosis of large intestine without perforation or abscess without bleeding; K40.90 Unilateral inguinal hernia, without obstruction or gangrene, not specified as recurrent; G43.909 Migraine, unspecified, not intractable, without status migrainosus; G47.33 Obstructive sleep apnea (adult) (pediatric); R60.9 Edema, unspecified; Z79.4 Long term (current) use of insulin; Z79.82 Long term (current) use of aspirin; Z90.49 Acquired absence of other specified parts of digestive tract
CPT/HCPCS: 36415; 71045; 71275; 75635; 77012; 80048; 80053; 80061; 82550; 82553; 82962; 83036; 83690; 83735; 83880; 84439; 84443; 84480; 84484; 85025; 85610; 85730; 87070; 87102; 87116; 93005; 93306; 93971; 96374; 96375; G0378; J1170; J1650; J1815; J2270; J2405; J7030; Q9967

== ENCOUNTER 2019-03-19 18:02 | Emergency (ER) | payer SELFPAY ==
[~2019-03-19] VITALS: Ht 157.5 cm; Wt 112.5 kg
[~2019-03-19 18:02] MED LIST changes: +ACET325T33 PO; +ASPI-817 PO; +BENA10TA4 PO; -CIPR500T4 PO; -DOCU-144 PO; +EMPA25TA PO; -FIORICET PO; +FLUO20CA22 PO; +GLIM4TAB PO; +HYDR-3601 PO; -IBUP-1542 PO; +INSU100C SQ; -INSU100I17 SQ; +INSU100I33 SC; -LANT3I SC; -LEVO100T8 PO; +LEVO200T6 PO; -LEVO25TA6 PO; -LINA5TAB PO; +METF100010 PO; -METF500T24 PO; -ONDA8TAB14 PO; -POLY17PO6 PO; -SIMV10TA PO; +SITA100T11 PO
[2019-03-19 18:58] VITALS: BP 151/81; PULSE 82; RESP 19; Ht 157.5 cm; Wt 112.5 kg
== END 2019-03-20 00:18 | disposition left against medical advice (07) ==
LOC: E/R 18:02
DX: Z53.21 Procedure and treatment not carried out due to patient leaving prior to being seen by health care provider (principal)
CPT/HCPCS: 93005

== ENCOUNTER 2019-03-28 14:01 | Emergency (ER) | payer BC ==
[~2019-03-28] VITALS: Ht 162.6 cm; Wt 111.9 kg
[2019-03-28 14:29] VITALS: Ht 162.6 cm; Wt 111.9 kg
[2019-03-28] MEDS ORDERED: ONDANSETRON 4 MG INJ IV STA ×2 (16:47→19:19)
[2019-03-28] MEDS ORDERED: morphine 4 MG/ML VIAL IV STA ×2 (16:47→19:19)
[2019-03-28] MEDS ORDERED: HYDROCODONE/APAP (10/325) TAB PO ONE (17:00)
[2019-03-28] MEDS ORDERED: IOHEXOL 300MG/ML 150 ML BTL ONE (17:12)
[2019-03-28] MEDS ORDERED: SOD CHLORIDE 0.9% 100 ML ONE (17:12)
[2019-03-28] MEDS ORDERED: HYDR-4011 PO (18:52)
[2019-03-28] MEDS ORDERED: ONDA4TAB14 PO (18:52)
[2019-03-28] MEDS ORDERED: FLUC150T PO (18:52)
[2019-03-28] MEDS ORDERED: TAMS-14 PO (19:18)
--- NOTE | 2019-03-28 19:22 | ERD ---
ER Documentation Chief Complaint Chief Complaint R sided AP x3d + urinary frequency/ burning. epigastric pain w po intake. HPI 53-year-old female patient with a past medical history of diabetes, hypertension, hypothyroidism, hyperlipidemia, presents the ED complaining of right flank pain that started for a few days now. States that she also has cheesy white discharge, and has some dysuria. 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 Denies any wheezing, shortness of breath, diarrhea, vomiting, constipation, neck stiffness, dyspnea on exertion. ROS All systems reviewed and are negative except as per history of present illness. Medications Home Meds Active Scripts Tamsulosin Hcl* (Flomax*) 0.4 Mg Cap.er.24h, 0.4 MG PO QPM, #30 CAP Prov:SALLY DOUGLASS PA-C 03/28/19 Fluconazole* (Diflucan*) 150 Mg Tablet, 150 MG PO ONCE, #1 TAB Prov:SALLY DOUGLASS PA-C 03/28/19 Ondansetron (Ondansetron Odt) 4 Mg Tab.rapdis, 4 MG PO Q6H PRN for NAUSEA AND/OR VOMITING, #10 TAB Prov:SALLY DOUGLASS PA-C 03/28/19 Hydrocodone/Acetaminophen ([place] 5-325 Tablet) 1 Each Tablet, 1 TAB PO Q6H PRN for PAIN, #7 TAB Prov:SALLY DOUGLASS PA-C 03/28/19 Levothyroxine Sodium* (Levothyroxine Sodium*) 200 Mcg Tablet, 400 MCG PO BEFORE BREAKFAST for 30 Days, #30 TAB take 400 mcg daily. Prov:JELENA THOMAS MD 03/09/19 Hydrocodone Bit-Acetaminophen (Hydrocodone Bit-APAP) 5-325MG Tablet, 1 TAB PO Q6H PRN for .PAIN 4-6 for 5 Days, TAB Prov:JELENA THOMAS MD 03/09/19 Acetaminophen* (Tylenol*) 325 Mg Tablet, 650 MG PO Q6H PRN for .PAIN 1-3 OR TEMP for 10 Days, TAB Prov:JELENA THOMAS MD 03/09/19 Reported Medications Fluoxetine Hcl* (Fluoxetine Hcl*) 20 Mg Capsule, 20 MG PO DAILY, CAP 03/06/19 Benazepril Hcl* (Benazepril Hcl*) 10 Mg Tablet, 10 MG PO DAILY, #30 TAB 03/06/19 Aspirin* (Aspirin* EC) 81 Mg Tablet.dr, 81 MG PO DAILY, TAB 03/06/19 Empagliflozin (Jardiance) 25 Mg Tablet, 25 MG PO DAILY, TAB 03/06/19 Metformin Hcl* (Metformin Hcl*) 1,000 Mg Tablet, 1000 MG PO WITH BREAKFAST DINNE, #60 TAB 03/06/19 Glimepiride* (Glimepiride*) 4 Mg Tablet, 4 MG PO WITH BREAKFAST DINNE, TAB 03/06/19 Sitagliptin* (Januvia*) 100 Mg Tablet, 100 MG PO DAILY, #30 TAB 03/06/19 Insulin Glargine,Hum.rec.anlog (Basaglar Kwikpen U-100) 100 Unit/1 Ml Insuln.pen, 40 UNIT SC QHS, EA 03/06/19 Insulin Lispro (Humalog) 100 Unit/1 Ml Cartridge, 5 UNIT SQ TID, EA 03/06/19 Allergies Allergies: Coded Allergies: No Known Allergy (Unverified , 03/28/19) PMhx/Soc History of Surgery: Yes (Galbladder, Csection, hernia) Anesthesia Reaction: No Hx Neurological Disorder: No Hx Respiratory Disorders: No Hx Cardiac Disorders: No Hx Psychiatric Problems: No Hx Miscellaneous Medical Probl: No Hx Alcohol Use: No Hx Substance Use: No Hx Tobacco Use: No FmHx Family History: No diabetes, No coronary disease Physical Exam Vitals Vital Signs Date Temp Pulse Resp B/P (MAP) Pulse Ox O2 O2 Flow FiO2 Time Delivery Rate 03/28/19 98.1 62 18 157/72 97 Room Air 19:44 (100) 03/28/19 98.4 75 22 119/66 98 14:29 (83) Physical Exam Const: Pyp-ngv-umpyitatc, well-nourished. In no acute distress. Head: Atraumatic, normocephalic Eyes: Normal Conjunctiva without injection. No purulent discharge. ENT: Normal external ear, nose. Moist oropharynx without tonsillar exudates. Non-erythematous pharynx. Uvula midline. No drooling. No trismus. Neck: No cervical midline tenderness. Full range of motion. No meningismus. No cervical lymphadenopathy. No JVD. Resp: Clear to auscultation bilaterally. No wheezing, rhonchi, rales, or crackles. No accessory muscle use. No retractions. Cardio: Regular rate and rhythm. No murmurs, rubs or gallops. Abd: Soft, right tenderness, non distended. Normal bowel sounds. No palpable masses. No rebound tenderness. No guarding. Negative McBurney's point. Negative psoas sign. Negative obturator sign. Skin: No petechiae or rashes Back: No midline tenderness. No CVA tenderness. Ext: No cyanosis, or edema. Neur: Awake and alert. Normal gait. Normal coordination. Psych: Normal Mood and Affect Result Diagram: 03/28/19 1537 03/28/19 1537 Results 24 hrs Laboratory Tests Test 03/28/19 15:37 White Blood Count 7.4 10^3/ul Red Blood Count 4.64 10^6/ul Hemoglobin 14.4 g/dl Hematocrit 43.8 % Mean Corpuscular Volume 94.4 fl Mean Corpuscular Hemoglobin 31.0 pg Mean Corpuscular Hemoglobin Concent 32.9 g/dl Red Cell Distribution Width 12.9 % Platelet Count 247 10^3/UL Mean Platelet Volume 9.4 fl Immature Granulocytes % 0.300 % Neutrophils % 52.6 % Lymphocytes % 37.7 % Monocytes % 6.5 % Eosinophils % 2.2 % Basophils % 0.7 % Nucleated Red Blood Cells % 0.0 /100WBC Immature Granulocytes # 0.020 10^3/ul Neutrophils # 3.9 10^3/ul Lymphocytes # 2.8 10^3/ul Monocytes # 0.5 10^3/ul Eosinophils # 0.2 10^3/ul Basophils # 0.1 10^3/ul Nucleated Red Blood Cells # 0.0 10^3/ul Urine Color STRAW Urine Clarity CLEAR Urine pH 5.0 Urine Specific [place] 1.017 Urine Ketones NEGATIVE mg/dL Urine Nitrite NEGATIVE mg/dL Urine Bilirubin NEGATIVE mg/dL Urine Urobilinogen NEGATIVE mg/dL Urine Leukocyte Esterase NEGATIVE Marion/ul Urine Hemoglobin NEGATIVE mg/dL Urine Glucose 3+ mg/dL Urine Total Protein NEGATIVE mg/dl Sodium Level 142 mmol/L Potassium Level 4.5 mmol/L Chloride Level 105 mmol/L Carbon Dioxide Level 27 mmol/L Anion Gap 10 Blood Urea Nitrogen 15 mg/dl Creatinine 0.84 mg/dl Est Glomerular Filtrat Rate mL/min > 60 mL/min Glucose Level 193 mg/dl Calcium Level 9.9 mg/dl Total Bilirubin 0.3 mg/dl Direct Bilirubin 0.00 mg/dl Indirect Bilirubin 0.3 mg/dl Aspartate Amino Transf (AST/SGOT) 13 IU/L Alanine Aminotransferase (ALT/SGPT) 11 IU/L Alkaline Phosphatase 70 IU/L Troponin I < 0.012 ng/ml Total Protein 7.4 g/dl Albumin 4.3 g/dl Globulin 3.10 g/dl Albumin/Globulin Ratio 1.38 Lipase 170 U/L Current Medications Medications Dose Sig/Josephine Start Time Status Last (Trade) Ordered Route PRN Stop Time Admin Dose Reason Admin 1 tab ONCE ONCE 03/28/19 Cancel Acetaminophen PO 17:00 03/28/19 / 17:01 Hydrocodone Bitart ([place] ()) Morphine 4 mg ONCE STAT 03/28/19 DC 03/28/19 Sulfate IV 16:47 03/28/19 16:52 (morphine) 16:49 Ondansetron 4 mg ONCE STAT 03/28/19 DC 03/28/19 HCl (Zofran IV 16:47 03/28/19 16:52 Inj) 16:49 IV Flush 10 ml STK-MED 03/28/19 DC 03/28/19 (NS 10 ml) ONCE .ROUTE 17:12 03/28/19 17:58 17:13 Sodium 100 ml @ ud STK-MED 03/28/19 DC 03/28/19 Chloride ONCE .ROUTE 17:12 03/28/19 17:58 17:13 Iohexol 150 ml STK-MED 03/28/19 DC 03/28/19 (Omnipaque ONCE .ROUTE 17:12 03/28/19 17:59 300mg/ ml) 17:13 Morphine 4 mg ONCE STAT 03/28/19 DC 03/28/19 Sulfate IV 19:19 03/28/19 19:22 (morphine) 19:20 Ondansetron 4 mg ONCE STAT 03/28/19 DC 03/28/19 HCl (Zofran IV 19:19 03/28/19 19:22 Inj) 19:20 Procedures/MDM 53-year-old female patient with a past medical history of hypertension, diabetes, hypothyroidism hyperlipidemia presents ED complaining of right flank pain, mid epigastric pain. Patient is afebrile and nontoxic-appearing. Patient was further worked up with CBC, CMP, lipase, UA, CT of the abdomen and pelvis without contrast. Patient's pain and symptoms have improved after treatment with 1 L normal saline, two doses of 4 mg IV Morphine, and two doses of 4 mg IV Zofran. CBC: No leukocytosis. No e/o of systemic infection. No e/o anemia. CMP: No e/o severe acidosis, alkalosis, renal failure, diabetic ketoacidosis, liver disease Lipase within normal limits. Urine: No leukocyte esterase, no nitrites, no hematuria. 3+ glucose. EKG reviewed and interpreted by Dr. Craig Rate/Rhythm: [65 bpm, Normal Sinus Rhythm] No ectopy, no ST elevations, normal axis. QRS, ST, T-waves: [No changes consistent w/ acute ischemia] Impression: [No evidence of ischemia or arrhythmia] Low suspicion for acute myocardial infarction, pneumothorax, pneumonia, cardiac tamponade, Lfqyr-Gspijmvqh-Yxdza Syndrome, Brugada Syndrome, pulmonary embolism, AAA, aortic dissection, thoracic aortic dissection, endocarditis, myocarditis, pericarditis, cocaine-related ischemia, Boerhaave's syndrome, cardiac dysrhythmias,meningitis, intracranial bleed, seizure, stroke, TIA or other emergent conditions. IMPRESSION: Previously described low attenuation in the enlarged right upper pole, further characterized as a right upper pole moiety with asymmetric moderate to severe caliectasis. 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 Moderate to severe caliectasis of the right upper pole moiety may be secondary to obstruction or reflux at the ureteral junction. Functional Mag 3 renal scan may be helpful in differentiating these possibilities. Status post cholecystectomy. Prominence of the intra and extrahepatic biliary ducts, which can be secondary to cholecystectomy status. Clinical correlation can be made with biliary functions to exclude cholestasis. Chronic fluid collection along the midline anterior abdominal wall, above and near the umbilicus level, measuring up to 8.9 x 3.5 x 1.0 cm, similar to prior CT. Normal appendix. Mild fat-containing left inguinal hernia. Patient was noted to have caliectasis, this discussed with my supervising physician, Dr. Walker, who stated that patient can be managed on outpatient basis. Patient's chronic fluid collection is also noted in the midline, and patient can follow-up with a general surgeon as there is no acute findings. No leukocytosis. BUN and creatinine are within normal limits. No transaminitis. Mild- fat containing left inguinal hernia - no strangulation or incarceration. Low suspicion for ovarian torsion, gastritis, GERD, peptic ulcer disease, cholecystitis, choledocholithiasis, cholangitis, pancreatitis, appendicitis, bowel obstruction, ileus, volvulus, nephrolithiasis, pyelonephritis, hepatitis, perforated viscus, diverticulitis, strangulated/incarcerated hernia, DKA, acute abdomen, mesenteric ischemia or other emergent conditions. Diagnosis: Right Flank pain Discharge medications: [place], Zofran, Flomax, Diflucan for her presumed yeast infection (Patient deferred exam) Follow up with primary care physician in 1-2 days. Instructed patient to return to the ED sooner for any worsening symptoms. Patient's questions were answered. Patient is hemodynamically stable. Patient understood and agreed with discharge plan. Patient discharged stable. Disclaimer: Inadvertent spelling and grammatical errors are likely due to EHR/dictation software use and do not reflect on the overall quality of patient care. Also, please note that the electronic time recorded on this note does not necessarily reflect the actual time of the patient encounter. Departure Diagnosis: Primary Impression: Right flank pain Condition: Stable Patient Instructions: Abdominal Pain, Flank Pain, Uncertain Cause Referrals: JEMAL BELTRAN MD [facility] YOU HAVE RECEIVED A MEDICAL SCREENING EXAM AND THE RESULTS INDICATE THAT YOU DO NOT HAVE A CONDITION THAT REQUIRES URGENT TREATMENT IN THE EMERGENCY DEPARTMENT. FURTHER EVALUATION AND TREATMENT OF YOUR CONDITION CAN WAIT UNTIL YOU ARE SEEN IN YOUR DOCTORS OFFICE WITHIN THE NEXT 1-2 DAYS. IT IS YOUR RESPONSIBILITY TO MAKE AN APPOINTMENT FOR FOLOW-UP CARE. IF YOU HAVE A PRIMARY DOCTOR --you should call your primary doctor and schedule an appointment IF YOU DO NOT HAVE A PRIMARY DOCTOR YOU CAN CALL OUR PHYSICIAN REFERRAL HOTLINE AT IF YOU CAN NOT AFFORD TO SEE A PHYSICIAN YOU CAN CHOSE FROM THE FOLLOWING [facility] [address] [facility] [facility] [address] [facility] [facility] [address] [facility] [address] [facility] [address] [facility]. [facility] [address] [facility]. [facility] YOU HAVE RECEIVED A MEDICAL SCREENING EXAM AND THE RESULTS INDICATE THAT YOU DO NOT HAVE A CONDITION THAT REQUIRES URGENT TREATMENT IN THE EMERGENCY DEPARTMENT. FURTHER EVALUATION AND TREATMENT OF YOUR CONDITION CAN WAIT UNTIL YOU ARE SEEN IN YOUR DOCTORS OFFICE WITHIN THE NEXT 1-2 DAYS. IT IS YOUR RESPONSIBILITY TO MAKE AN APPOINTMENT FOR FOLOW-UP CARE. IF YOU HAVE A PRIMARY DOCTOR --you should call your primary doctor and schedule and appointment IF YOU DO NOT HAVE A PRIMARY DOCTOR YOU CAN CALL OUR PHYSICIAN REFERRAL HOTLINE AT . IF YOU CAN NOT AFFORD TO SEE A PHYSICIAN YOU CAN CHOSE FROM THE FOLLOWING [facility] INSTITUTIONS: [facility] [address] [place] [address] [facility] [address] [place] [address] [facility] + [facility] [address] [place] [address] [facility] URGENT CARE/SPECIALTIES Additional Instructions: Call your primary care doctor TOMORROW for an appointment during the next 2-3 days fora referral to see a urologist for caliectasis and general surgeon for c ollection of fluid in abdomen to get it drained as well as chainstitch tunnel elastic operator for chest pain. See the doctor sooner or return here if your condition worsens before your appointment time. SALLY DOUGLASS PA-C March 28, 2019 19:22
[2019-03-28 19:44] VITALS: BP 157/72; PULSE 62; RESP 18
== END 2019-03-28 19:46 | disposition home or self-care (01) ==
LOC: FTE 14:01
DX: R10.9 Unspecified abdominal pain (principal); I10 Essential (primary) hypertension; E11.9 Type 2 diabetes mellitus without complications; E03.9 Hypothyroidism, unspecified; Z79.4 Long term (current) use of insulin; Z79.82 Long term (current) use of aspirin
CPT/HCPCS: 36415; 71045; 74177; 80053; 81003; 83690; 84484; 85025; 93005; 96374; 96375; 96376; J2270; J2405; Q9967; Z7502; Z7610

== ENCOUNTER 2019-06-16 18:48 | Emergency (ER) | payer BC ==
[~2019-06-16] VITALS: Ht 162.6 cm; Wt 110.3 kg
[~2019-06-16 18:48] MED LIST changes: +FLUC150T PO; +HYDR-4011 PO; +ONDA4TAB14 PO; +TAMS-14 PO
[2019-06-16 19:03] VITALS: Ht 162.6 cm; Wt 110.3 kg
--- NOTE | 2019-06-16 20:47 | ERD ---
ER Documentation Chief Complaint Chief Complaint Pt reports dizziness and vomiting x 3 days with RUSHING HPI 53-year-old woman complaining of generalized dizziness and vomiting intermittently x3 days, she states she has a headache as well. She was worried today because her blood sugar was running high despite using her medications as prescribed and eating normally. She denies slurred speech or blurry vision, no weakness to her arms or legs, no loss of consciousness, no chest pain or shortness of breath. ROS All systems reviewed and are negative except as per history of present illness. Medications Home Meds Active Scripts Ibuprofen* (Motrin*) 600 Mg Tab, 600 MG PO Q8 PRN for PAIN, #30 TAB Prov:SYLVIA SOSA MD 06/16/19 Ondansetron Hcl* (Zofran*) 4 Mg Tablet, 4 MG PO Q8H PRN for NAUSEA AND/OR VOMITING, #30 TAB Prov:SYLVIA SOSA MD 06/16/19 Tamsulosin Hcl* (Flomax*) 0.4 Mg Cap.er.24h, 0.4 MG PO QPM, #30 CAP Prov:SALLY DOUGLASS PA-C 03/28/19 Fluconazole* (Diflucan*) 150 Mg Tablet, 150 MG PO ONCE, #1 TAB Prov:SALLY DOUGLASS PA-C 03/28/19 Ondansetron (Ondansetron Odt) 4 Mg Tab.rapdis, 4 MG PO Q6H PRN for NAUSEA AND/OR VOMITING, #10 TAB Prov:SALLY DOUGLASS PA-C 03/28/19 Hydrocodone/Acetaminophen (Henry 5-325 Tablet) 1 Each Tablet, 1 TAB PO Q6H PRN for PAIN, #7 TAB Prov:SALLY DOUGLASS PA-C 03/28/19 Levothyroxine Sodium* (Levothyroxine Sodium*) 200 Mcg Tablet, 400 MCG PO BEFORE BREAKFAST for 30 Days, #30 TAB take 400 mcg daily. Prov:JELENA THOMAS MD 03/09/19 Hydrocodone Bit-Acetaminophen (Hydrocodone Bit-APAP) 5-325MG Tablet, 1 TAB PO Q6H PRN for .PAIN 4-6 for 5 Days, TAB Prov:JELENA THOMAS MD 03/09/19 Acetaminophen* (Tylenol*) 325 Mg Tablet, 650 MG PO Q6H PRN for .PAIN 1-3 OR TEMP for 10 Days, TAB Prov:JELENA THOMAS MD 03/09/19 Reported Medications Fluoxetine Hcl* (Fluoxetine Hcl*) 20 Mg Capsule, 20 MG PO DAILY, CAP 03/06/19 Benazepril Hcl* (Benazepril Hcl*) 10 Mg Tablet, 10 MG PO DAILY, #30 TAB 03/06/19 Aspirin* (Aspirin* EC) 81 Mg Tablet.dr, 81 MG PO DAILY, TAB 03/06/19 Empagliflozin (Jardiance) 25 Mg Tablet, 25 MG PO DAILY, TAB 03/06/19 Metformin Hcl* (Metformin Hcl*) 1,000 Mg Tablet, 1000 MG PO WITH BREAKFAST DINNE, #60 TAB 03/06/19 Glimepiride* (Glimepiride*) 4 Mg Tablet, 4 MG PO WITH BREAKFAST DINNE, TAB 03/06/19 Sitagliptin* (Januvia*) 100 Mg Tablet, 100 MG PO DAILY, #30 TAB 03/06/19 Insulin Glargine,Hum.rec.anlog (Basaglar Kwikpen U-100) 100 Unit/1 Ml Insuln.pen, 40 UNIT SC QHS, EA 03/06/19 Insulin Lispro (Humalog) 100 Unit/1 Ml Cartridge, 5 UNIT SQ TID, EA 03/06/19 Allergies Allergies: Coded Allergies: No Known Allergy (Unverified , 03/28/19) PMhx/Soc Chronic recurrent chest pain, peripheral edema, diabetes mellitus, obesity, hypertension, dyslipidemia, inguinal hernia, hypothyroidism, chronic migraines, diverticulosis, cholecystectomy History of Surgery: Yes (Galbladder, Csection, hernia) Anesthesia Reaction: No Hx Neurological Disorder: No Hx Respiratory Disorders: No Hx Cardiac Disorders: No Hx Psychiatric Problems: No Hx Miscellaneous Medical Probl: No Hx Alcohol Use: No Hx Substance Use: No Hx Tobacco Use: No FmHx Family History: No diabetes Physical Exam Vitals Vital Signs Date Temp Pulse Resp B/P (MAP) Pulse Ox O2 O2 Flow FiO2 Time Delivery Rate 06/16/19 60 18 136/66 99 Room Air 22:31 (89) 06/16/19 98.7 75 16 165/91 97 19:03 (115) Physical Exam GENERAL: Well-developed, well-nourished, well-hydrated, in no apparent distress, looks nontoxic in appearance HEENT: Moist mucous membranes, pink conjunctiva, no cervical spine tenderness or step-off deformities, no goiter, no jaundice or icterus, extraocular movements intact without pain. No submandibular induration, and no pharyngeal erythema NEURO: Alert and oriented 3, cranial nerves II through XII intact bilaterally, pupils equal round reactive to light, no focal deficits or facial asymmetry, sensation intact distally Strength 5/5 in upper and lower extremities bilaterally CARDIAC: Regular rate and rhythm, no murmurs rubs or gallops LUNGS: Clear bilaterally no wheezing crackles or stridor ABDOMEN: Soft nontender, no guarding, no rigidity, no rebound, no psoas sign no obturator sign. Normoactive bowel sounds SKIN: Warm and dry to touch, no abrasions, contusions, or hematomas, no lacera tions, no ecchymosis, no target lesions, and without ulcers EXTREMITIES: No clubbing cyanosis or edema, calves are bilaterally symmetrical, no Homans sign, no popliteal cord sign. Distal pulses equal and bilateral PSYCH: Normal affect without agitation or irritability Result Diagram: 06/16/19212406/16/192124 Results 24 hrs Laboratory Tests Test 06/16/19 21:25 White Blood Count 6.9 10^3/ul Red Blood Count 5.03 10^6/ul Hemoglobin 15.5 g/dl Hematocrit 46.5 % Mean Corpuscular Volume 92.4 fl Mean Corpuscular Hemoglobin 30.8 pg Mean Corpuscular Hemoglobin Concent 33.3 g/dl Red Cell Distribution Width 13.8 % Platelet Count 263 10^3/UL Mean Platelet Volume 9.6 fl Immature Granulocytes % 0.400 % Neutrophils % 46.5 % Lymphocytes % 45.0 % Monocytes % 5.2 % Eosinophils % 2.2 % Basophils % 0.7 % Nucleated Red Blood Cells % 0.0 /100WBC Immature Granulocytes # 0.030 10^3/ul Neutrophils # 3.2 10^3/ul Lymphocytes # 3.1 10^3/ul Monocytes # 0.4 10^3/ul Eosinophils # 0.2 10^3/ul Basophils # 0.1 10^3/ul Nucleated Red Blood Cells # 0.0 10^3/ul Urine Color YELLOW Urine Clarity CLEAR Urine pH 5.0 Urine Specific [place] 1.018 Urine Ketones NEGATIVE mg/dL Urine Nitrite NEGATIVE mg/dL Urine Bilirubin NEGATIVE mg/dL Urine Urobilinogen NEGATIVE mg/dL Urine Leukocyte Esterase NEGATIVE Marion/ul Urine Hemoglobin NEGATIVE mg/dL Urine Glucose 1+ mg/dL Urine Total Protein NEGATIVE mg/dl Sodium Level 138 mmol/L Potassium Level 4.0 mmol/L Chloride Level 101 mmol/L Carbon Dioxide Level 26 mmol/L Anion Gap 11 Blood Urea Nitrogen 16 mg/dl Creatinine 0.89 mg/dl Est Glomerular Filtrat Rate mL/min > 60 mL/min Glucose Level 325 mg/dl Calcium Level 10.0 mg/dl Total Bilirubin 0.5 mg/dl Direct Bilirubin 0.00 mg/dl Indirect Bilirubin 0.5 mg/dl Aspartate Amino Transf (AST/SGOT) 16 IU/L Alanine Aminotransferase (ALT/SGPT) 14 IU/L Alkaline Phosphatase 80 IU/L Troponin I < 0.012 ng/ml Total Protein 8.3 g/dl Albumin 4.6 g/dl Globulin 3.70 g/dl Albumin/Globulin Ratio 1.24 Lipase 157 U/L Current Medications Medications Dose Sig/Josephine Start Time Status Last (Trade) Ordered Route PRN Stop Time Admin Dose Reason Admin Lactated 1,000 ml @ Q1H STAT 06/16/19 DC 06/16/19 Ringer's 1,000 mls/hr IV 20:59 21:24 06/16/19 21:58 Ondansetron 4 mg ONCE STAT 06/16/19 DC 06/16/19 HCl (Zofran IV 20:59 21:27 Inj) 06/16/19 21:00 Ketorolac 15 mg ONCE STAT 06/16/19 DC 06/16/19 Tromethamine IV 21:38 21:58 (Toradol) 06/16/19 21:39 Procedures/MDM IV line was established patient was placed on teletypesetter monitor rhythm strip revealed a sinus rhythm at about 90 bpm with upright P and T waves. Patient was afebrile EKG performed, read by me revealed a normal sinus rhythm at 70 bpm, normal axis, narrow QRS complex, precordial T wave inversions, no concerning ST elevations or depressions noted I administered 1 L LR IV, Zofran 4 mg IV for dizziness, Toradol 15 mg IV for headache CBC and electrolytes are normal although blood sugar mildly elevated, liver function tests were normal, troponin was negative, urinalysis was negative for infection Differential diagnoses considered, included but not limited to acute coronary syndrome, pulmonary embolism, aortic dissection, abdominal aortic aneurysm, sepsis, stroke, meningitis, encephalitis, pneumonia, appendicitis, cholecystitis, bowel obstruction, pyelonephritis, nephrolithiasis, cystitis, as well as metabolic, hematologic, and electrolyte abnormalities. As well as abscess, cellulitis, fractures, and dislocations. Patient feels much better at this time, and vital signs are normal, symptoms have improved. I did give strict instructions to return to the ED if symptoms continue or worsen, patient will otherwise follow-up with primary care physician. Patient understood instructions and agreed to plan. Disclaimer: Inadvertent spelling and grammatical errors are likely due to EHR/dictation software use and do not reflect on the overall quality of patient care. Also, please note that the electronic time recorded on this note does not necessarily reflect the actual time of the patient encounter. Departure Diagnosis: Primary Impression: Dizziness Additional Impressions: Acute headache Headache type: tension-type Intractability: not intractable Qualified Codes: G44.209 - Tension-type headache, unspecified, not intractable Hyperglycemia Condition: SYLVIA Guerra MD Jun 16, 2019 20:47
[2019-06-16] MEDS ORDERED: ONDANSETRON 4 MG INJ IV STA (20:59)
[2019-06-16] MEDS ORDERED: LACTATED RINGER'S 1,000 ML IV STA (20:59)
[2019-06-16] MEDS ORDERED: KETOROLAC 15 MG INJ IV STA (21:38)
[2019-06-16] MEDS ORDERED: ONDA4TAB8 PO (22:14)
[2019-06-16] MEDS ORDERED: IBUP-1542 PO (22:14)
[2019-06-16 22:31] VITALS: BP 136/66; PULSE 60; RESP 18
== END 2019-06-16 22:35 | disposition home or self-care (01) ==
LOC: E/R 18:48
DX: G44.209 Tension-type headache, unspecified, not intractable (principal); E11.65 Type 2 diabetes mellitus with hyperglycemia; I10 Essential (primary) hypertension; E66.9 Obesity, unspecified; E03.9 Hypothyroidism, unspecified; Z79.4 Long term (current) use of insulin; Z79.82 Long term (current) use of aspirin; Z68.41 Body mass index [BMI] 40.0-44.9, adult
CPT/HCPCS: 36415; 80053; 81003; 83690; 84484; 85025; 93005; 96374; 96375; J1885; J2405; J7120; Z7502

== ENCOUNTER 2019-07-06 12:26 | Observation (INO) | payer BC ==
[~2019-07-06] VITALS: Ht 162.6 cm; Wt 111.0 kg
[~2019-07-06 12:26] MED LIST changes: +BACTRIM PO; +IBUP-1542 PO; +LEVO175T6 PO; +ONDA4TAB8 PO; +RANI300T PO; +SIMV20TA PO
[2019-07-06] MEDS ORDERED: ONDANSETRON 4 MG INJ IV STA (13:42)
[2019-07-06] MEDS ORDERED: morphine 2 MG INJ IV STA (13:42)
[2019-07-06] MEDS ORDERED: SOD CHLORIDE 0.9% 500 ML IV STA (13:42)
--- NOTE | 2019-07-06 13:45 | EN ---
Date/Time of Note Date/Time of Note DATE: 07/06/19 TIME: 13:44 ER Progress Note 54-year-old female with history of diabetes, presents to the emergency department, complaining of 3 days with worsening of right-sided abdominal pain. Medical screening exam initiated and labs order, the patient will be seen by another provider. YAS GALLEGO MD Jul 06, 2019 13:45
[2019-07-06] MEDS ORDERED: SOD CHLORIDE 0.9% 1,000 ML IV STA (15:54)
--- NOTE | 2019-07-06 15:56 | ERD ---
ER Documentation Chief Complaint Chief Complaint ap x 3 days. high glucose levels when checking at home. HPI This is a 54-year-old obese woman with a long history of chronic abdominal and chest pain presenting with severe abdominal pain cramping, and loose diarrhea x2 to 3 days. She denies chest pain or shortness of breath but states her pain is worse than usual and denies recent travel or antibiotic use, no fevers or chills, no cough, no headache or blurry vision ROS All systems reviewed and are negative except as per history of present illness. Medications Home Meds Active Scripts Ibuprofen* (Motrin*) 600 Mg Tab, 600 MG PO Q8 PRN for PAIN, #30 TAB Prov:SYLVIA SOSA MD 06/16/19 Tamsulosin Hcl* (Flomax*) 0.4 Mg Cap.er.24h, 0.4 MG PO QPM, #30 CAP Prov:SALLY DOUGLASS PA-C 03/28/19 Reported Medications Simvastatin* (Zocor*) 20 Mg Tablet, 20 MG PO QHS, #30 TAB 07/06/19 Ranitidine Hcl* (Ranitidine Hcl*) 300 Mg Tablet, 300 MG PO HS, #30 TAB 07/06/19 Levothyroxine Sodium* (Levothyroxine Sodium*) 175 Mcg Tablet, 350 MCG PO BEFORE BREAKFAST, #30 TAB 07/06/19 Fluoxetine Hcl* (Fluoxetine Hcl*) 20 Mg Capsule, 20 MG PO DAILY, CAP 03/06/19 Benazepril Hcl* (Benazepril Hcl*) 10 Mg Tablet, 10 MG PO DAILY, #30 TAB 03/06/19 Aspirin* (Aspirin* EC) 81 Mg Tablet.dr, 81 MG PO DAILY, TAB 03/06/19 Empagliflozin (Jardiance) 25 Mg Tablet, 25 MG PO DAILY, TAB 03/06/19 Metformin Hcl* (Metformin Hcl*) 1,000 Mg Tablet, 1000 MG PO WITH BREAKFAST DINNE, #60 TAB 03/06/19 Glimepiride* (Glimepiride*) 4 Mg Tablet, 4 MG PO WITH BREAKFAST DINNE, TAB 03/06/19 Sitagliptin* (Januvia*) 100 Mg Tablet, 100 MG PO DAILY, #30 TAB 03/06/19 Insulin Glargine,Hum.rec.anlog (Basaglar Kwikpen U-100) 100 Unit/1 Ml Insuln.pen, 40 UNIT SC QHS, EA 03/06/19 Insulin Lispro (Humalog) 100 Unit/1 Ml Cartridge, 8 UNIT SQ TID, EA 03/06/19 Discontinued Scripts Ondansetron Hcl* (Zofran*) 4 Mg Tablet, 4 MG PO Q8H PRN for NAUSEA AND/OR VOMITING, #30 TAB Prov:SYLVIA SOSA MD 06/16/19 Fluconazole* (Diflucan*) 150 Mg Tablet, 150 MG PO ONCE, #1 TAB Prov:SALLY DOUGLASS PA-C 03/28/19 Ondansetron (Ondansetron Odt) 4 Mg Tab.rapdis, 4 MG PO Q6H PRN for NAUSEA AND/OR VOMITING, #10 TAB Prov:SALLY DOUGLASS PA-C 03/28/19 Hydrocodone/Acetaminophen ([place] 5-325 Tablet) 1 Each Tablet, 1 TAB PO Q6H PRN for PAIN, #7 TAB Prov:SALLY DOUGLASS PA-C 03/28/19 Levothyroxine Sodium* (Levothyroxine Sodium*) 200 Mcg Tablet, 400 MCG PO BEFORE BREAKFAST for 30 Days, #30 TAB take 400 mcg daily. Prov:JELENA THOMAS MD 03/09/19 Hydrocodone Bit-Acetaminophen (Hydrocodone Bit-APAP) 5-325MG Tablet, 1 TAB PO Q6H PRN for .PAIN 4-6 for 5 Days, TAB Prov:JELENA THOMAS MD 03/09/19 Acetaminophen* (Tylenol*) 325 Mg Tablet, 650 MG PO Q6H PRN for .PAIN 1-3 OR TEMP for 10 Days, TAB Prov:JELENA THOMAS MD 03/09/19 Allergies Allergies: Coded Allergies: No Known Allergy (Unverified , 07/06/19) PMhx/Soc Chronic recurrent chest pain, peripheral edema, diabetes mellitus, obesity, hypertension, dyslipidemia, inguinal hernia, hypothyroidism, chronic migraines, diverticulosis, cholecystectomy, recurrent abdominal pain History of Surgery: Yes (Galbladder, Csection, hernia) Anesthesia Reaction: No Hx Neurological Disorder: No Hx Respiratory Disorders: No Hx Cardiac Disorders: Yes (HTN) Hx Psychiatric Problems: No Hx Miscellaneous Medical Probl: No Hx Alcohol Use: No Hx Substance Use: No Hx Tobacco Use: No Smoking Status: Never smoker FmHx Family History: diabetes Physical Exam Vitals Vital Signs Date Temp Pulse Resp B/P (MAP) Pulse Ox O2 O2 Flow FiO2 Time Delivery Rate 07/06/19 98.5 71 18 155/93 99 12:37 (113) Physical Exam GENERAL: Well-developed, well-nourished, moderate discomfort, afebrile CARDIAC: Regular rate and rhythm, no murmurs rubs or gallops LUNGS: Clear bilaterally no wheezing crackles or stridor ABDOMEN: Protuberant abdomen, voluntary guarding, no rigidity, tenderness throughout, no rebound SKIN: Warm and dry to touch, no abrasions, contusions, or hematomas, no lacerations, no ecchymosis, no target lesions, and without ulcers EXTREMITIES: No clubbing cyanosis or edema, calves are bilaterally symmetrical, no Homans sign, no popliteal cord sign. Distal pulses equal and bilateral PSYCH: Normal affect without agitation or irritability Result Diagram: 07/06/19 1426 07/06/19 1426 Results 24 hrs Laboratory Tests Test 07/06/19 14:26 07/06/19 15:20 White Blood Count 6.3 10^3/ul Red Blood Count 4.90 10^6/ul Hemoglobin 15.1 g/dl Hematocrit 46.3 % Mean Corpuscular Volume 94.5 fl Mean Corpuscular Hemoglobin 30.8 pg Mean Corpuscular Hemoglobin Concent 32.6 g/dl Red Cell Distribution Width 14.3 % Platelet Count 250 10^3/UL Mean Platelet Volume 10.0 fl Immature Granulocytes % 0.300 % Neutrophils % 51.2 % Lymphocytes % 42.8 % Monocytes % 3.6 % Eosinophils % 1.6 % Basophils % 0.5 % Nucleated Red Blood Cells % 0.0 /100WBC Immature Granulocytes # 0.020 10^3/ul Neutrophils # 3.2 10^3/ul Lymphocytes # 2.7 10^3/ul Monocytes # 0.2 10^3/ul Eosinophils # 0.1 10^3/ul Basophils # 0.0 10^3/ul Nucleated Red Blood Cells # 0.0 10^3/ul Sodium Level 137 mmol/L Potassium Level 4.0 mmol/L Chloride Level 99 mmol/L Carbon Dioxide Level 28 mmol/L Anion Gap 10 Blood Urea Nitrogen 14 mg/dl Creatinine 1.00 mg/dl Est Glomerular Filtrat Rate mL/min 57 mL/min Glucose Level 358 mg/dl Calcium Level 10.4 mg/dl Total Bilirubin 0.7 mg/dl Direct Bilirubin 0.00 mg/dl Indirect Bilirubin 0.7 mg/dl Aspartate Amino Transf (AST/SGOT) 18 IU/L Alanine Aminotransferase (ALT/SGPT) 20 IU/L Alkaline Phosphatase 77 IU/L Total Protein 8.4 g/dl Albumin 4.6 g/dl Globulin 3.80 g/dl Albumin/Globulin Ratio 1.21 Lipase 119 U/L Urine Color YELLOW Urine Clarity SLIGHTLY CLOUDY Urine pH 5.0 Urine Specific [place] 1.023 Urine Ketones TRACE mg/dL Urine Nitrite NEGATIVE mg/dL Urine Bilirubin NEGATIVE mg/dL Urine Urobilinogen NEGATIVE mg/dL Urine Leukocyte Esterase TRACE [place]/ul Urine Microscopic RBC 2 /HPF Urine Microscopic WBC 7 /HPF Urine Squamous Epithelial Cells FEW /HPF Urine Hemoglobin NEGATIVE mg/dL Urine Glucose 3+ mg/dL Urine Total Protein NEGATIVE mg/dl Current Medications Medications Dose Sig/Josephine Start Time Status Last (Trade) Ordered Route PRN Stop Time Admin Dose Reason Admin Sodium 500 ml @ Q1H STAT 07/06/19 DC Chloride 500 mls/hr IV 13:42 07/06/19 14:41 Morphine 2 mg ONCE STAT 07/06/19 DC Sulfate IV 13:42 07/06/19 (morphine) 13:44 Ondansetron 4 mg ONCE STAT 07/06/19 DC HCl (Zofran IV 13:42 07/06/19 Inj) 13:44 Procedures/MDM IV line was established patient was placed on hedis specialist rhythm strip reve aled a sinus rhythm at about 80 bpm with upright P and T waves. Patient was afebrile Patient received 1 L normal saline IV, morphine 4 mg IV, Zofran [address] scan of the abdomen pelvis was performed, IMPRESSION: 1. Circumferential colonic wall edema throughout the ascending and transverse c olon, compatible with colitis. 2. Hepatomegaly. 3. 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 4. Unchanged chronic fluid collection along the midline anterior abdominal wall measuring 9 x 4 x 1 cm. 5. Diverticulosis. I also administered Zosyn 3.375 g IV. CBC and electrolytes were unremarkable although blood sugar was elevated, liver function test normal. Urine analysis positive for infection. Patient will be admitted to [facility] for continued IV antibiotics and pain management. Departure Diagnosis: Primary Impression: Abdominal pain Abdominal location: generalized Qualified Codes: R10.84 - Generalized abdo woo pain Additional Impressions: Infectious colitis Acute UTI Acute hyperglycemia Condition: SYLVIA Villegas MD Jul 06, 2019 15:56
[2019-07-06] MEDS ORDERED: PIPER-TAZO 3.375 GM IV (PMX) 100 ML IVPB ONE (16:00)
[2019-07-06] MEDS ORDERED: NACL 0.9% 3 ML SYG IV SCH (18:00)
[2019-07-06] MEDS ORDERED: ACETAMINOPHEN 325 MG TAB PO PRN (18:00)
[2019-07-06] MEDS ORDERED: OXYCODONE/ACETAMINOPHEN (5/325) TAB PO ONE (18:00)
--- NOTE | 2019-07-06 18:00 | HP ---
Date/Time of Note Date/Time of Note DATE: 07/06/19 TIME: 17:50 Assessment/Plan VTE Prophylaxis SCD applied (from Nsg): Yes Pharmacological prophylaxis: NA/contraindicated Pharm contraindication: low risk/ambulating Lines/Catheters IV Catheter Type (from Nrsg): Mid Line Assessment/Plan Assessment/Plan 54 yo morbidly obese woman with DM2 and HTN presents with enterocolitis and UTI #Acute enterocolitis - No risk factors for C diff - Diarrhea is not hemorrhagic; so less concern for shigella - Will hold off on antibiotics for this. - Clear liquids - IV fluids - Zofran - Symptomatic care #UTI - Urinary frequency without dysuria - UA +leuk esterase - Urine culture - Ceftriaxone q24h #Diabetes - BS uncontrolled probably due to dehydration - Resume home regimen and sliding scale. - Hold home oral meds #HTN - Cont home benazepril #Hypothyroid - Cont home synthroid #Morbid obesity - Low calorie diet when she is tolerating food again. DVT: SCDs GI: H2 tommy Result Diagram: 07/06/19 1426 07/06/19 1426 HPI/ROS Admit Date/Time Admit Date/Time 06 July 2019 Hx of Present Illness Ms. Downs is a 54 yo morbidly obese woman with history of insulin- dependent diabetes and HTN who presents with vomiting and diarrhea. Symptoms started about 4 days ago and have gradually worsened. She cannot identify any particular food or event which may have triggered symptoms. Started with nausea, then she developed vomiting (vomited twice yesterday, once this morning); and copious foul-smelling diarrhea (5 times yesterday, 8 times so far today). Nausea and vomiting is actually improving slightly, diarrhea has been getting worse. There is no blood or coffee grounds from either end. There is cramping R-sided abdominal pain radiating to the R flank. She also reports increasing urinary frequency (although not urgency) over the past few days. Last night got up 5 times to urinate at night which is unusual. Blood sugars have been very uncontrolled, in the 400s-500s even though she reports compliance with all meds and insulin. In the ED she was afebrile, P 71, BP 155/93, breathing comfortably on room air. Labs notable for BS 358. UA had leuk esterase, negative nitrites. ROS She denies fever, chills, headache, dizziness, chest pain/pressure/palpitations, dyspnea, cough, dysuria. PMH/Family/Social Past Medical History Insulin-dependent diabetes mellitus Hypertension Hypothyroid Medications Current Medications Sodium Chloride 1,000 ml @ 100 mls/hr Q10H IV ; Start 07/06/19 at 17:44; Status UNV IV Flush (NS 3 ml) 3 ml PER PROTOCOL IV ; Start 07/06/19 at 18:00; Status UNV Ondansetron HCl (Zofran Inj) 4 mg Q6H PRN IV NAUSEA/VOMITING; Start 07/06/19 at 18:00; Status UNV Acetaminophen (Tylenol Tab) 650 mg Q6H PRN PO .PAIN 1-3 OR TEMP; Start 07/06/19 at 18:00; Status UNV Famotidine (Pepcid Iv) 20 mg Q12 IV ; Start 07/06/19 at 21:00; Status UNV Aspirin (Halfprin) 81 mg DAILY PO ; Start 07/07/19 at 09:00; Status UNV Benazepril HCl (Lotensin) 10 mg DAILY PO ; Start 07/07/19 at 09:00; Status UNV Fluoxetine HCl (Prozac) 20 mg DAILY PO ; Start 07/07/19 at 09:00; Status UNV Levothyroxine Sodium (Synthroid) 350 mcg BEFORE BREAKFAST PO ; Start 07/07/19 at 07:00; Status UNV Tamsulosin HCl (Flomax) 0.4 mg QPM PO ; Start 07/06/19 at 21:00; Status UNV Miscellaneous Information 20 mg QHS PO ; Start 07/06/19 at 21:00; Status UNV Coded Allergies: No Known Allergy (Unverified , 07/06/19) Past Surgical History Hernia repair Kidney stone lithotripsy Cholecystectomy Family History Significant Family History: heart disease, cancer, diabetes, hypertension, other Social History Alcohol Use: occasionally Smoking Status: Former smoker (Quit 20 years ago) Drug Use: none Exam/Review of Systems Vital Signs Vitals Vital Signs Date Temp Pulse Resp B/P (MAP) Pulse Ox O2 O2 Flow FiO2 Time Delivery Rate 07/06/19 62 18 148/80 99 Room Air 17:02 (102) 07/06/19 98.5 12:37 Exam Exam Gen: Morbidly obese woman supine in [facility], in no acute distress. Eyes: PERRL, no icterus HEENT: Dry mucous membranes, clear oropharynx Neck: Supple, no lymphadenopathy, no jugular venous distension Card: Regular rate and rhythm, no murmurs Pulm: Clear to auscultation bilaterally. Back: R CVA tenderness Abd: Soft, diffuse R sided tenderness to palpation, no epigastric tenderness, nondistended. Normoactive bowel sounds. Ext: No cyanosis/clubbing/edema. Skin: No jaundice. Warm, dry, well perfused. TAYA SENA MD Jul 06, 2019 18:00
[2019-07-06] MEDS: SOD CHLORIDE 0.9% 1,000 ML IV SCH (18:55)
[2019-07-06] MEDS ORDERED: GLUCOSE GEL 15 GRAM TUBE BUCCAL PRN (19:00)
[2019-07-06] MEDS ORDERED: GLUCAGON 1 MG INJ IM PRN (19:00)
[2019-07-06] MEDS ORDERED: GLUCOSE GEL 15 GRAM TUBE PO PRN ×2 (19:00)
[2019-07-06] MEDS ORDERED: DEXTROSE 50% 50 ML SYRINGE IV PRN ×2 (19:00)
[2019-07-06] MEDS: CEFTRIAXONE 1 GM/50 ML (PMX) 50 ML IVPB SCH (19:07)
[2019-07-06] MEDS: INSULIN ASPART [NOVOLOG] 3 ML PEN SC SCH ×3 (19:18→21:49)
[2019-07-06] MEDS: FAMOTIDINE 20 MG INJ IV SCH (20:05)
[2019-07-06] MEDS: ATORVASTATIN 10 MG TAB PO SCH (20:05)
[2019-07-06] MEDS: TAMSULOSIN (SR) 0.4 MG CAP PO SCH (20:05)
[2019-07-06] MEDS: INSULIN GLARGINE [LANTus] (100 UNITS/ML) SYG SC SCH (20:08)
[2019-07-06 21:55] VITALS: BP 124/95; PULSE 55; RESP 18
[2019-07-06 22:00] VITALS: Ht 162.6 cm; Wt 111.0 kg
[2019-07-06] MEDS: morphine 2 MG INJ IV PRN (22:05)
[2019-07-07] MEDS: ACCU-CHEK XX SCH (02:00)
[2019-07-07 02:09] VITALS: BP 106/63; PULSE 55; RESP 20
[2019-07-07] MEDS: SOD CHLORIDE 0.9% 1,000 ML IV SCH ×3 (04:05→23:44)
[2019-07-07] MEDS: morphine 2 MG INJ IV PRN ×3 (04:09→20:48)
[2019-07-07 07:46] VITALS: BP 111/62; PULSE 56; RESP 18
[2019-07-07] MEDS: FAMOTIDINE 20 MG INJ IV SCH ×2 (08:43→20:48)
[2019-07-07] MEDS: LEVOTHYROXINE 175 MCG TAB PO SCH (08:43)
[2019-07-07] MEDS: FLUOXETINE 20 MG CAP PO SCH (08:43)
[2019-07-07] MEDS: HYDROCODONE/APAP (5/325) TAB PO PRN ×2 (08:44→18:17)
[2019-07-07] MEDS: ASPIRIN (EC) 81 MG TAB PO SCH (08:45)
[2019-07-07] MEDS: BENAZEPRIL 10 MG TAB PO SCH (08:45)
[2019-07-07] MEDS: INSULIN ASPART [NOVOLOG] 3 ML PEN SC SCH ×7 (08:48→20:48)
[2019-07-07] MEDS: ONDANSETRON 4 MG INJ IV PRN (13:13)
--- NOTE | 2019-07-07 13:52 | PN ---
Date/Time of Note Date/Time of Note DATE: 07/07/19 TIME: 13:48 Assessment/Plan VTE Prophylaxis Risk score (from Ns)>0 risk: 1 SCD applied (from Ns): Yes Pharmacological prophylaxis: NA/contraindicated Pharm contraindication: low risk/ambulating Lines/Catheters IV Catheter Type (from Nrsg): Mid Line Urinary Cath still in place: No Assessment/Plan Assessment/Plan 54 yo morbidly obese woman with DM2 and HTN presents with enterocolitis and UTI #Acute enterocolitis - No risk factors for C diff - Diarrhea is not hemorrhagic; so less concern for shigella - Will hold off on antibiotics for this. - Continue diet. - IV fluids - Zofran - Symptomatic care #UTI - Urinary frequency without dysuria - UA +leuk esterase - Urine culture - Ceftriaxone q24h #Diabetes - BS uncontrolled probably due to dehydration - Resume home regimen and sliding scale. - Hold home oral meds #HTN - Cont home benazepril #Hypothyroid - Cont home synthroid #Morbid obesity - Low calorie diet DVT: SCDs GI: H2 tommy Result Diagram: 07/07/1942807/07/19428 Subjective 24 Hr Interval Summary Free Text/Dictation No acute overnight events. This morning had soft, formed bowel movement. Tolerated clear liquids in the AM. For lunch tried regular diet. The patient vomited it all back up. Exam/Review of Systems Exam Vitals Vital Signs Date Temp Pulse Resp B/P (MAP) Pulse Ox O2 O2 Flow FiO2 Time Delivery Rate 07/07/19 98.0 56 18 111/62 97 Room Air 07:46 (78) Intake and Output 07/06/19 07/06/19 07/07/19 1515:00 23:00 07:00 IntakeIntake Total 480 ml 1535 ml OutputOutput Total 1 ml BalanceBalance 480 ml 1534 ml Exam Gen: Morbidly obese woman supine in gurney, in no acute distress. Eyes: PERRL, no icterus HEENT: Dry mucous membranes, clear oropharynx Neck: Supple, no lymphadenopathy, no jugular venous distension Card: Regular rate and rhythm, no murmurs Pulm: Clear to auscultation bilaterally. Abd: Soft, diffuse R sided tenderness to palpation, no epigastric tenderness, nondistended. Normoactive bowel sounds. Ext: No cyanosis/clubbing/edema. Skin: No jaundice. Warm, dry, well perfused. Results Results 24hrs Laboratory Tests Test 07/06/19 14:26 07/06/19 15:20 07/06/19 19:03 07/06/19 19:58 White Blood Count 6.3 Red Blood Count 4.90 Hemoglobin 15.1 Hematocrit 46.3 Mean Corpuscular 94.5 Volume Mean Corpuscular 30.8 Hemoglobin Mean Corpuscular 32.6 Hemoglobin Concen t Red Cell 14.3 Distribution Width Platelet Count 250 Mean Platelet 10.0 Volume Immature 0.300 Granulocytes % Neutrophils % 51.2 Lymphocytes % 42.8 Monocytes % 3.6 Eosinophils % 1.6 Basophils % 0.5 Nucleated Red 0.0 Blood Cells % Immature 0.020 Granulocytes # Neutrophils # 3.2 Lymphocytes # 2.7 Monocytes # 0.2 L Eosinophils # 0.1 Basophils # 0.0 Nucleated Red 0.0 Blood Cells # Sodium Level 137 Potassium Level 4.0 Chloride Level 99 Carbon Dioxide 28 Level Anion Gap 10 Blood Urea 14 Nitrogen Creatinine 1.00 Est Glomerular 57 L Filtrat Rate mL/min Glucose Level 358 H Calcium Level 10.4 H Total Bilirubin 0.7 Direct Bilirubin 0.00 Indirect 0.7 Bilirubin Aspartate Amino 18 Transf (AST/SGOT) Alanine 20 Aminotransferase (ALT/SGPT) Alkaline 77 Phosphatase Total Protein 8.4 H Albumin 4.6 Globulin 3.80 H Albumin/Globulin 1.21 Ratio Lipase 119 Urine Color YELLOW Urine Clarity SLIGHTLY CLOUDY A Urine pH 5.0 Urine Specific 1.023 [place] Urine Ketones TRACE A Urine Nitrite NEGATIVE Urine Bilirubin NEGATIVE Urine NEGATIVE Urobilinogen Urine Leukocyte TRACE A Esterase Urine Microscopic 2 RBC Urine Microscopic 7 H WBC Urine Squamous FEW Epithelial Cells Urine Hemoglobin NEGATIVE Urine Glucose 3+ H Urine Total NEGATIVE Protein Bedside Glucose 298 H 303 H Test 07/06/19 21:23 07/07/19 02:28 07/07/19 04:29 07/07/19 08:08 Bedside Glucose 248 H 204 212 White Blood Count 4.7 #L Red Blood Count 4.27 Hemoglobin 13.2 Hematocrit 40.5 Mean Corpuscular 94.8 Volume Mean Corpuscular 30.9 Hemoglobin Mean Corpuscular 32.6 Hemoglobin Concen t Red Cell 14.6 H Distribution Width Platelet Count 213 Mean Platelet 9.8 Volume Immature 0.400 Granulocytes % Neutrophils % 42.7 Lymphocytes % 47.7 Monocytes % 6.0 Eosinophils % 2.3 Basophils % 0.9 Nucleated Red 0.0 Blood Cells % Immature 0.020 Granulocytes # Neutrophils # 2.0 Lymphocytes # 2.2 Monocytes # 0.3 Eosinophils # 0.1 Basophils # 0.0 Nucleated Red 0.0 Blood Cells # Sodium Level 136 Potassium Level 3.7 Chloride Level 104 Carbon Dioxide 27 Level Anion Gap 5 Blood Urea 11 Nitrogen Creatinine 0.82 Est Glomerular > 60 Filtrat Rate mL/min Glucose Level 233 #H Hemoglobin A1c 10.8 H Calcium Level 8.7 Phosphorus Level 3.7 Magnesium Level 1.8 Total Bilirubin 0.6 Direct Bilirubin 0.00 Indirect 0.6 Bilirubin Aspartate Amino 15 Transf (AST/SGOT) Alanine 19 Aminotransferase (ALT/SGPT) Alkaline 62 Phosphatase Total Protein 6.7 # Albumin 3.6 # Globulin 3.10 Albumin/Globulin 1.16 Ratio Thyroid 29.400 H Stimulating Hormone (TSH) Test 07/07/19 12:29 Bedside Glucose 225 H Medications Medication Current Medications Sodium Chloride 1,000 ml @ 100 mls/hr Q10H IV Last administered on 07/07/19at 04:05; Admin Dose 100 MLS/HR; Start 07/06/19 at 17:44 IV Flush (NS 3 ml) 3 ml PER PROTOCOL IV ; Start 07/06/19 at 18:00 Ondansetron HCl (Zofran Inj) 4 mg Q6H PRN IV NAUSEA/VOMITING Last administered on 07/07/19at 13:13; Admin Dose 4 MG; Start 07/06/19 at 18:00 Acetaminophen (Tylenol Tab) 650 mg Q6H PRN PO .PAIN 1-3 OR TEMP; Start 07/06/19 at 18:00 Famotidine (Pepcid Iv) 20 mg Q12 IV Last administered on 07/07/19at 08:43; Admin Dose 20 MG; Start 07/06/19 at 21:00 Aspirin (Halfprin) 81 mg DAILY PO Last administered on 07/07/19 08:45; Admin Dose 81 MG; Start 07/07/19 at 09:00 Benazepril HCl (Lotensin) 10 mg DAILY PO Last administered on 07/07/19at 08:45; Admin Dose 10 MG; Start 07/07/19 at 09:00 Fluoxetine HCl (Prozac) 20 mg DAILY PO Last administered on 07/07/19 08:43; Admin Dose 20 MG; Start 07/07/19 at 09:00 Levothyroxine Sodium (Synthroid) 350 mcg BEFORE BREAKFAST PO Last administered on 07/07/19 08:43; Admin Dose 350 MCG; Start 07/07/19 at 07:00 Tamsulosin HCl (Flomax) 0.4 mg QPM PO Last administered on 07/06/19 20:05; Admin Dose 0.4 MG; Start 07/06/19 at 21:00 Atorvastatin Calcium (Lipitor) 10 mg DAILY@21 PO Last administered on 07/06/19 20:05; Admin Dose 10 MG; Start 07/06/19 at 21:00 Diagnostic Test (Pha) (Accu-Chek) 1 ea 02 XX ; Start 07/07/19 at 02:00 Insulin Glargine (Lantus) 40 units DAILY@2000 SC Last administered on 07/06/19 20:08; Admin Dose 40 UNITS; Start 07/06/19 at 20:00 Insulin Aspart (Novolog Insulin Pen) 8 unit WITH MEALS SC Last administered on 07/07/19 12:49; Admin Dose 8 UNIT; Start 07/06/19 at 18:00 Insulin Aspart (Novolog Insulin Pen) NOVOLOG *MODERATE* ALGORITHM WITH MEALS BEDTIME SC Last administered on 07/07/19 12:50; Admin Dose 6 UNIT; Start 07/06/19 at 18:00 Ceftriaxone Sodium 50 ml @ 100 mls/hr Q24H IVPB Last administered on 07/06/19 19:07; Admin Dose 100 MLS/HR; Start 07/06/19 at 18:00 Miscellaneous Information 1 ea NOTE XX ; Start 07/06/19 at 19:00 Glucose (Glutose) 15 gm Q15M PRN PO DECREASED GLUCOSE; Start 07/06/19 at 19:00 Glucose (Glutose) 22.5 gm Q15M PRN PO DECREASED GLUCOSE; Start 07/06/19 at 19:00 Dextrose (D50w Syringe) 25 ml Q15M PRN IV DECREASED GLUCOSE; Start 07/06/19 at 19:00 Dextrose (D50w Syringe) 50 ml Q15M PRN IV DECREASED GLUCOSE; Start 07/06/19 at 19:00 Glucagon (Glucagen) 1 mg Q15M PRN IM DECREASED GLUCOSE; Start 07/06/19 at 19:00 Glucose (Glutose) 15 gm Q15M PRN BUCCAL DECREASED GLUCOSE; Start 07/06/19 at 19:00 Morphine Sulfate (morphine) 2 mg Q4H PRN IV SEVERE PAIN LEVEL 7-10 Last administered on 07/07/19at 13:18; Admin Dose 2 MG; Start 07/06/19 at 21:30 Acetaminophen/ Hydrocodone Bitart ([place] (5/325)) 1 tab Q4H PRN PO MODERATE PAIN LEVEL 4-6 Last administered on 07/07/19at 08:44; Admin Dose 1 TAB; Start 07/07/19 at 00:01 TAYA SENA MD Jul 07, 2019 13:52
[2019-07-07 14:37] VITALS: BP 110/64; PULSE 63; RESP 19
[2019-07-07] MEDS: CEFTRIAXONE 1 GM/50 ML (PMX) 50 ML IVPB SCH (17:37)
[2019-07-07 20:24] VITALS: BP 99/57; PULSE 56; RESP 18
[2019-07-07] MEDS: TAMSULOSIN (SR) 0.4 MG CAP PO SCH (20:48)
[2019-07-07] MEDS: ATORVASTATIN 10 MG TAB PO SCH (20:48)
[2019-07-07] MEDS: INSULIN GLARGINE [LANTus] (100 UNITS/ML) SYG SC SCH (20:55)
[2019-07-08] MEDS: ACCU-CHEK XX SCH (02:00)
[2019-07-08 02:22] VITALS: BP 121/66; PULSE 57; RESP 16
[2019-07-08] MEDS: SOD CHLORIDE 0.9% 1,000 ML IV SCH ×3 (03:18→13:37)
[2019-07-08] MEDS: morphine 2 MG INJ IV PRN ×2 (05:38→11:58)
[2019-07-08] MEDS: LEVOTHYROXINE 175 MCG TAB PO SCH (06:44)
[2019-07-08 08:04] VITALS: BP 118/70; PULSE 50; RESP 16
[2019-07-08] MEDS: FAMOTIDINE 20 MG INJ IV SCH (08:30)
[2019-07-08] MEDS: ASPIRIN (EC) 81 MG TAB PO SCH (08:30)
[2019-07-08] MEDS: FLUOXETINE 20 MG CAP PO SCH (08:30)
[2019-07-08] MEDS: BENAZEPRIL 10 MG TAB PO SCH (08:30)
[2019-07-08] MEDS: HYDROCODONE/APAP (5/325) TAB PO PRN (08:30)
[2019-07-08] MEDS: INSULIN ASPART [NOVOLOG] 3 ML PEN SC SCH ×6 (08:37→17:45)
[2019-07-08] MEDS: ONDANSETRON 4 MG INJ IV PRN (08:45)
--- NOTE | 2019-07-08 14:48 | PDOCDIS ---
Discharge Instructions DIAGNOSIS Discharge Diagnosis Acute gastroenteritis CONDITION [id number] Patient Condition: [id number] Good HOME CARE INSTRUCTIONS: [id number] Special Diet: [id number] Diabetic diet (consistent carbohydrate) ACTIVITY: [id number] Activity Restrictions: [id number] Restrictions FOLLOW UP/APPOINTMENTS Follow-up Plan 1. Eat small meals for a few days. Don't push yourself. 2. Continue all medications as prescribed. 3. See your primary care doctor as scheduled. 4. Return to the emergency room if you have severe vomiting and cannot keep down foods or liquids; or if your abdominal pain gets much worse and does not respond to tylenol (acetaminophen). TAYA SENA MD Jul 08, 2019 14:48
[2019-07-08 14:52] VITALS: BP 113/66; PULSE 59; RESP 17
--- NOTE | 2019-07-08 16:14 | DS ---
Date/Time of Note Date/Time of Note DATE: 07/08/19 TIME: 16:10 Discharge Summary Admission/Discharge Info Admit Date/Time Jul 06, 2019 at 17:45 Discharge Date/Time Discharge Diagnosis Acute gastroenteritis Patient Condition: Good Hx of Present Illness Ms. Downs is a 54 yo morbidly obese woman with history of insulin- dependent diabetes and HTN who presents with vomiting and diarrhea. Symptoms started about 4 days ago and have gradually worsened. She cannot identify any particular food or event which may have triggered symptoms. Started with nausea, then she developed vomiting (vomited twice yesterday, once this morning); and copious foul-smelling diarrhea (5 times yesterday, 8 times so far today). Nausea and vomiting is actually improving slightly, diarrhea has been getting worse. There is no blood or coffee grounds from either end. There is cramping R-sided abdominal pain radiating to the R flank. She also reports increasing urinary frequency (although not urgency) over the past few days. Last night got up 5 times to urinate at night which is unusual. Blood sugars have been very uncontrolled, in the 400s-500s even though she reports compliance with all meds and insulin. In the ED she was afebrile, P 71, BP 155/93, breathing comfortably on room air. Labs notable for BS 358. UA had leuk esterase, negative nitrites. Hospital Course She was restarted back on solid diet. She had a few episodes of vomiting but otherwise was tolerating it. Diarrhea resolved. Abdominal pain gradually improved. There was suspicion of UTI due to her increased urinary frequency and leuk esterase on UA. She was given IV ceftriaxone while inpatient. Urine culture was contaminated. She will be discharged to complete a course of PO Bactrim. Home Meds Active Scripts Ibuprofen* (Motrin*) 600 Mg Tab, 600 MG PO Q8 PRN for PAIN, #30 TAB Prov:SYLVIA SOSA MD 06/16/19 Tamsulosin Hcl* (Flomax*) 0.4 Mg Cap.er.24h, 0.4 MG PO QPM, #30 CAP Prov:SALLY DOUGLASS PA-C 03/28/19 Reported Medications Simvastatin* (Zocor*) 20 Mg Tablet, 20 MG PO QHS, #30 TAB 07/06/19 Ranitidine Hcl* (Ranitidine Hcl*) 300 Mg Tablet, 300 MG PO HS, #30 TAB 07/06/19 Levothyroxine Sodium* (Levothyroxine Sodium*) 175 Mcg Tablet, 350 MCG PO BEFORE BREAKFAST, #30 TAB 07/06/19 Fluoxetine Hcl* (Fluoxetine Hcl*) 20 Mg Capsule, 20 MG PO DAILY, CAP 03/06/19 Benazepril Hcl* (Benazepril Hcl*) 10 Mg Tablet, 10 MG PO DAILY, #30 TAB 03/06/19 Aspirin* (Aspirin* EC) 81 Mg Tablet.dr, 81 MG PO DAILY, TAB 03/06/19 Empagliflozin (Jardiance) 25 Mg Tablet, 25 MG PO DAILY, TAB 03/06/19 Metformin Hcl* (Metformin Hcl*) 1,000 Mg Tablet, 1000 MG PO WITH BREAKFAST DINNE, #60 TAB 03/06/19 Glimepiride* (Glimepiride*) 4 Mg Tablet, 4 MG PO WITH BREAKFAST DINNE, TAB 03/06/19 Sitagliptin* (Januvia*) 100 Mg Tablet, 100 MG PO DAILY, #30 TAB 03/06/19 Insulin Glargine,Hum.rec.anlog (Basaglar Kwikpen U-100) 100 Unit/1 Ml I nsuln.pen, 40 UNIT SC QHS, EA 03/06/19 Insulin Lispro (Humalog) 100 Unit/1 Ml Cartridge, 8 UNIT SQ TID, EA 03/06/19 Discontinued Scripts Ondansetron Hcl* (Zofran*) 4 Mg Tablet, 4 MG PO Q8H PRN for NAUSEA AND/OR VOMIT ING, #30 TAB Prov:SYLVIA SOSA MD 06/16/19 Fluconazole* (Diflucan*) 150 Mg Tablet, 150 MG PO ONCE, #1 TAB Prov:SALLY DOUGLASS PA-C 03/28/19 Ondansetron (Ondansetron Odt) 4 Mg Tab.rapdis, 4 MG PO Q6H PRN for NAUSEA AND/OR VOMITING, #10 TAB Prov:SALLY DOUGLASS PA-C 03/28/19 Hydrocodone/Acetaminophen ([place] 5-325 Tablet) 1 Each Tablet, 1 TAB PO Q6H PRN for PAIN, #7 TAB Prov:SALLY DOUGLASS PA-C 5/1/19 Levothyroxine Sodium* (Levothyroxine Sodium*) 200 Mcg Tablet, 400 MCG PO BEFORE BREAKFAST for 30 Days, #30 TAB take 400 mcg daily. Prov:JELENA THOMAS MD 03/09/19 Hydrocodone Bit-Acetaminophen (Hydrocodone Bit-APAP) 5-325MG Tablet, 1 TAB PO Q6H PRN for .PAIN 4-6 for 5 Days, TAB Prov:JELENA THOMAS MD 03/09/19 Acetaminophen* (Tylenol*) 325 Mg Tablet, 650 MG PO Q6H PRN for .PAIN 1-3 OR TEMP for 10 Days, TAB Prov:JELENA THOMAS MD 03/09/19 Follow-up Plan 1. Eat small meals for a few days. Don't push yourself. 2. Continue all medications as prescribed. 3. See your primary care doctor as scheduled. 4. Return to the emergency room if you have severe vomiting and cannot keep down foods or liquids; or if your abdominal pain gets much worse and does not respond to tylenol (acetaminophen). Primary Care Provider Brandon Jaeger Time spent on discharge: > 30 minutes Pending Labs Laboratory Tests Test 07/07/19 17:24 07/07/19 20:47 07/08/19 08:32 07/08/19 12:03 Bedside 210 135 206 161 Glucose mg/dL (70-220) mg/dL (70-220) mg/dL (70-220) mg/dL (70-220) TAYA SENA MD Jul 08, 2019 16:14
[2019-07-08] MEDS: CEFTRIAXONE 1 GM/50 ML (PMX) 50 ML IVPB SCH (17:39)
== END 2019-07-08 19:00 | disposition home or self-care (01) ==
LOC: E/R 12:26 → SUATTDRO 16:37 → 2NE 17:45
PROVIDERS: ADMIT Internal Medicine; ATTEND Internal Medicine
DX: K52.9 Noninfective gastroenteritis and colitis, unspecified (principal); E11.9 Type 2 diabetes mellitus without complications; Z79.4 Long term (current) use of insulin; E66.01 Morbid (severe) obesity due to excess calories; Z68.41 Body mass index [BMI] 40.0-44.9, adult; I10 Essential (primary) hypertension; Z79.82 Long term (current) use of aspirin; N39.0 Urinary tract infection, site not specified; E03.9 Hypothyroidism, unspecified
CPT/HCPCS: 74176; 76705; 80053; 81001; 82962; 83036; 83690; 83735; 84100; 84443; 85025; 87086; 96374; 96375; J0696; J1815; J2270; J2405; J7030; J7040; Z7500; Z7502; Z7610; G0378

== ENCOUNTER 2019-07-23 14:17 | Emergency (ER) | payer BC ==
[~2019-07-23] VITALS: Ht 162.6 cm; Wt 109.6 kg
[~2019-07-23 14:17] MED LIST changes: -ACET325T33 PO; +CEPH-443 PO; +CIPR500T4 PO; +DICY10CA40 PO; +DIPH1TAB PO; -FLUC150T PO; -HYDR-3601 PO; -HYDR-4011 PO; +IBUP800T48 PO; -LEVO200T6 PO; +METR500T PO; -ONDA4TAB14 PO; -ONDA4TAB8 PO
[2019-07-23 14:38] VITALS: Ht 162.6 cm; Wt 109.6 kg
[2019-07-23] MEDS ORDERED: SOD CHLORIDE 0.9% 1,000 ML IV ONE (16:00)
[2019-07-23] MEDS ORDERED: ONDANSETRON 4 MG INJ IV STA (16:47)
[2019-07-23] MEDS ORDERED: morphine 4 MG/ML VIAL IV STA (16:47)
[2019-07-23] MEDS ORDERED: LACTATED RINGER'S 1,000 ML IV ONE (17:00)
[2019-07-23] MEDS ORDERED: ACCU-CHEK XX ONE (17:30)
[2019-07-23] MEDS ORDERED: INSULIN LISPRO 100 UNIT/ML VIAL SC ONE (17:30)
[2019-07-23] MEDS ORDERED: DEXTROSE 50% 50 ML SYRINGE IV PRN ×2 (17:30)
[2019-07-23] MEDS ORDERED: GLUCOSE GEL 15 GRAM TUBE BUCCAL PRN (17:30)
[2019-07-23] MEDS ORDERED: GLUCAGON 1 MG INJ IM PRN (17:30)
[2019-07-23] MEDS ORDERED: GLUCOSE GEL 15 GRAM TUBE PO PRN ×2 (17:30)
[2019-07-23 20:10] VITALS: BP 140/71; PULSE 60; RESP 12
== END 2019-07-23 20:10 | disposition home or self-care (01) ==
LOC: E/R 14:17
DX: E11.65 Type 2 diabetes mellitus with hyperglycemia (principal); I10 Essential (primary) hypertension; N30.00 Acute cystitis without hematuria; Z79.4 Long term (current) use of insulin; Z79.82 Long term (current) use of aspirin; Z87.891 Personal history of nicotine dependence
CPT/HCPCS: 36415; 74176; 80048; 81001; 82803; 82962; 83735; 84100; 84484; 85025; 93005; 96372; 96374; 96375; J1815; J2270; J2405; J7030; J7120; Z7502

== ENCOUNTER 2019-07-28 16:31 | Emergency (ER) | payer BC ==
[~2019-07-28] VITALS: Ht 165.1 cm; Wt 110.6 kg
[~2019-07-28 16:31] MED LIST changes: -BACTRIM PO; -TAMS-14 PO
[2019-07-28 17:13] VITALS: Ht 165.1 cm; Wt 110.6 kg
[2019-07-28] MEDS ORDERED: HYDROmorphONE 1 MG/ML SYG IV STA (20:27)
[2019-07-28] MEDS ORDERED: SOD CHLORIDE 0.9% 1,000 ML IV STA (20:27)
[2019-07-28] MEDS ORDERED: ONDANSETRON 4 MG INJ IV STA (20:27)
[2019-07-28] MEDS ORDERED: IOHEXOL 300MG/ML 150 ML BTL ONE (21:28)
[2019-07-28] MEDS ORDERED: SOD CHLORIDE 0.9% 100 ML ONE (21:28)
[2019-07-29 02:10] VITALS: BP 129/75; PULSE 60; RESP 16
== END 2019-07-29 02:10 | disposition home or self-care (01) ==
LOC: E/R 16:31
DX: A09 Infectious gastroenteritis and colitis, unspecified (principal); I10 Essential (primary) hypertension; E03.9 Hypothyroidism, unspecified; Z79.82 Long term (current) use of aspirin; Z79.4 Long term (current) use of insulin; Z87.891 Personal history of nicotine dependence
CPT/HCPCS: 36415; 74177; 80053; 81025; 82962; 83690; 85025; 96361; 96374; 96375; J1170; J2405; J7030; Q9967; Z7502; Z7610

== ENCOUNTER 2019-09-27 10:59 | Emergency (ER) | payer BC ==
[~2019-09-27] VITALS: Ht 162.6 cm; Wt 107.0 kg
[~2019-09-27 10:59] MED LIST changes: +ACET325T33 PO; -BENA10TA4 PO; +BENA10TA6 PO; -CEPH-443 PO; -CIPR500T4 PO; -DICY10CA40 PO; -DIPH1TAB PO; +FLUC100T39 PO; +FLUC150T PO; -GLIM4TAB PO; +GLIM4TAB3 PO; -IBUP-1542 PO; -IBUP800T48 PO; -METR500T PO; +OMEP20CA17 PO
[2019-09-27 11:03] VITALS: Ht 162.6 cm; Wt 107.0 kg
[2019-09-27] MEDS ORDERED: ONDANSETRON 4 MG INJ IV STA (11:56)
[2019-09-27] MEDS ORDERED: FAMOTIDINE 20 MG INJ IV STA (11:56)
[2019-09-27] MEDS ORDERED: SOD CHLORIDE 0.9% 1,000 ML IV STA (11:56)
[2019-09-27] MEDS ORDERED: KETOROLAC 30 MG INJ IV STA (11:56)
[2019-09-27] MEDS ORDERED: BELLADONNA/PHENOBARBITAL TAB PO STA (11:56)
[2019-09-27] MEDS ORDERED: LIDOCAINE 2% VISC 10 ML CUP PO ONE (12:00)
[2019-09-27] MEDS ORDERED: AL HYDROX/MG HYDROX/SIMETH 30 ML CUP PO ONE (12:00)
[2019-09-27] MEDS ORDERED: SOD CHLORIDE 0.9% 100 ML ONE (13:39)
[2019-09-27] MEDS ORDERED: IOHEXOL 300MG/ML 150 ML BTL ONE (13:39)
[2019-09-27] MEDS ORDERED: ACETAMINOPHEN 325 MG TAB PO ONE (14:30)
[2019-09-27] MEDS ORDERED: FLUCONAZOLE 150 MG TAB PO ONE (14:30)
[2019-09-27 14:53] VITALS: BP 127/75; PULSE 57; RESP 18
== END 2019-09-27 14:54 | disposition home or self-care (01) ==
LOC: FTE 10:59
DX: R10.13 Epigastric pain (principal); E11.69 Type 2 diabetes mellitus with other specified complication; B37.9 Candidiasis, unspecified; I10 Essential (primary) hypertension; Z79.4 Long term (current) use of insulin; Z79.82 Long term (current) use of aspirin; Z87.891 Personal history of nicotine dependence
CPT/HCPCS: 36415; 74177; 76705; 80053; 81001; 81025; 82962; 83690; 84484; 85025; 93005; 96361; 96374; 96375; J1885; J2405; J7030; Q9967; Z7502; Z7610